=== PATIENT | male | born 1965 | race American Indian/Alaskan Native ===

== ENCOUNTER 2021-03-09 16:34 | Inpatient (IN) | payer MEDICAID ==
[2021-03-09] MEDS ORDERED: MECLIZINE 25 MG TAB PO ONE (17:34)
[2021-03-09] MEDS ORDERED: hydrALAZINE 20 MG/1 ML INJ IV ONE (17:34)
--- NOTE | 2021-03-09 17:42 | Emergency Department Report ---
HPI - General Chief Complaint: Weakness Time Seen by Provider: 03/09/21 17:17 - HPI HPI: 55-year-old -[place] male presents to the emergency department via EMS from his [facility] with complaint of elevated blood pressure, some dizziness/lightheadedness, and a 5-day history of feeling off balance with ambulation. The patient has a past medical history of hypertension, CHF, dementia. He denies any headache, vision change, slurred speech, numbness or paresthesias, focal or lateralizing weakness. Their note also says that the pat ieradha has been "lying in bed all day when he is normally up and socializing." ED Past Medical Hx - Past Medical History Previous Medical History?: Yes Hx Hypertension: Yes Hx Dementia: Yes - Medications Home Medications: Home Medications Medication Instructions Recorded Confirmed Last Taken Type AtorvaSTATin [Lipitor] 40 mg PO HS 03/10/21 03/10/21 Unknown History Cholecalciferol (Vitamin D3) 50,000 unit PO QWEEK 03/10/21 03/10/21 Unknown History [Vitamin D3 50,000UNIT CAP] Fluticasone Propionate [Flovent 50 mcg IH DAILY 03/10/21 03/10/21 Unknown History Diskus] Folic Acid [Folvite] 1 mg PO QDAY 03/10/21 03/10/21 Unknown History LORazepam [Ativan] 1 mg PO Q6H 03/10/21 03/10/21 Unknown History Spironolactone [Aldactone] 25 mg PO QDAY 03/10/21 03/10/21 Unknown History Thiamine HCl [Vitamin B-1] 100 mg PO DAILY 03/10/21 03/10/21 Unknown History Torsemide [Demadex] 20 mg PO DAILY 03/10/21 03/10/21 Unknown History amLODIPine [Norvasc] 10 mg PO DAILY 03/10/21 03/10/21 Unknown History carvediloL [Coreg] 12.5 mg PO BID 03/10/21 03/10/21 Unknown History hydroCHLOROthiazide [HCTZ] 25 mg PO QDAY 03/10/21 03/10/21 Unknown History lisinopriL [Zestril TAB] 40 mg PO QDAY 03/10/21 03/10/21 Unknown History ED Review of Systems ROS: Stated complaint: WEAKNESS Other details as noted in HPI Comment: All other systems reviewed and negative Constitutional: weakness. denies: chills, fever Eyes: denies: eye pain, vision change ENT: denies: ear pain, throat pain Respiratory: denies: cough, shortness of breath Cardiovascular: denies: chest pain, palpitations Gastrointestinal: denies: abdominal pain, vomiting Genitourinary: denies: dysuria, discharge Musculoskeletal: denies: back pain, arthralgia Skin: denies: rash, lesions Neurological: other (Dizziness/lightheadedness). denies: headache Physical Exam - Physical Exam Vital Signs: Vital Signs 03/09/21 17:13 Temperature 98.2 F Pulse Rate 109 H Respiratory 18 Rate Blood Pressure 183/86 [Right] O2 Sat by Pulse 97 Oximetry Physical Exam: GENERAL: The patient is well-developed well-nourished. HENT: Normocephalic. Atraumatic. Patient has moist mucous membranes. EYES: Extraocular motions are intact. Pupils equal reactive to light bilaterally. There is some fatigable horizontal nystagmus. NECK: Supple. Trachea is midline. CHEST/LUNGS: Clear to auscultation. There is no respiratory distress noted. HEART/CARDIOVASCULAR: Regular. There is no tachycardia. There is no murmur. ABDOMEN: Abdomen is soft, nontender. Patient has normal bowel sounds. There is no abdominal distention. SKIN: Skin is warm and dry. NEURO: The patient is awake, alert, and cooperative. No facial asymmetry. No pronator drift. Very mild dysmetria with gbahxp-zl-anoq touch. Normal speech. MUSCULOSKELETAL: There is no tenderness or deformity. There is no limitation range of motion. ED Course Vital Signs 03/09/21 17:13 Temperature 98.2 F Pulse Rate 109 H Respiratory 18 Rate Blood Pressure 183/86 [Right] O2 Sat by Pulse 97 Oximetry ED Medical Decision Making - Lab Data Result diagrams: 03/12/21 04:40 03/12/21 04:40 Lab Results 03/09/21 03/09/21 03/09/21 Range/Units 18:06 18:06 18:06 WBC 12.5 H (4.5-11.0) K/mm3 RBC 3.64 L (3.65-5.03) M/mm3 Hgb 11.3 L (11.8-15.2) gm/dl Hct 32.3 L (35.5-45.6) % MCV 89 (84-94) fl MCH 31 (28-32) pg MCHC 35 H (32-34) % RDW 15.0 (13.2-15.2) % Plt Count 230 (140-440) K/mm3 Lymph % (Auto) 28.2 (13.4-35.0) % [place] % (Auto) 9.4 H (0.0-7.3) % Eos % (Auto) 1.8 (0.0-4.3) % Baso % (Auto) 0.7 (0.0-1.8) % Lymph # (Auto) 3.5 (1.2-5.4) K/mm3 [place] # (Auto) 1.2 H (0.0-0.8) K/mm3 Eos # (Auto) 0.2 (0.0-0.4) K/mm3 Baso # (Auto) 0.1 (0.0-0.1) K/mm3 Seg Neutrophils % 59.9 (40.0-70.0) % Seg Neutrophils # 7.5 (1.8-7.7) K/mm3 Sodium 136 L (137-145) mmol/L Potassium 3.5 L (3.6-5.0) mmol/L Chloride 97.1 L (98-107) mmol/L Carbon Dioxide 28 (22-30) mmol/L Anion Gap 14 mmol/L BUN 21 H (9-20) mg/dL Creatinine 1.2 (0.8-1.3) mg/dL Estimated GFR > 60 ml/min BUN/Creatinine Ratio 18 % Glucose 149 H (75-100) mg/dL Calcium 8.6 (8.4-10.2) mg/dL Magnesium 2.00 (1.7-2.3) mg/dL Total Bilirubin 1.00 (0.1-1.2) mg/dL AST 15 (5-40) units/L ALT 9 (7-56) units/L Alkaline Phosphatase 104 (35-129) units/L Ammonia (25-60) umol/L Troponin T 0.056 H (0.00-0.029) ng/mL Total Protein 6.9 (6.3-8.2) g/dL Albumin 3.4 L (3.9-5) g/dL Albumin/Globulin Ratio 1.0 % Triglycerides 115 (2-149) mg/dL Cholesterol 138 (50-199) mg/dL LDL Cholesterol Direct 76 (50-130) mg/dL HDL Cholesterol 45 (40-59) mg/dL Cholesterol/HDL Ratio 3.06 % TSH 1.620 (0.270-4.200) mlU/mL Urine Color (Yellow) Urine Turbidity (Clear) Urine pH (5.0-7.0) Ur Specific [place] (1.003-1.030) Urine Protein (Negative) mg/dL Urine Glucose (UA) (Negative) mg/dL Urine Ketones (Negative) mg/dL Urine Blood (Negative) Urine Nitrite (Negative) Urine Bilirubin (Negative) Urine Urobilinogen (<2.0) mg/dL Ur Leukocyte Esterase (Negative) Urine WBC (Auto) (0.0-6.0) /HPF Urine RBC (Auto) (0.0-6.0) /HPF U Epithel Cells (Auto) (0-13.0) /HPF 03/09/21 03/09/21 Range/Units 18:06 Unknown WBC (4.5-11.0) K/mm3 RBC (3.65-5.03) M/mm3 Hgb (11.8-15.2) gm/dl Hct (35.5-45.6) % MCV (84-94) fl MCH (28-32) pg MCHC (32-34) % RDW (13.2-15.2) % Plt Count (140-440) K/mm3 Lymph % (Auto) (13.4-35.0) % [place] % (Auto) (0.0-7.3) % Eos % (Auto) (0.0-4.3) % Baso % (Auto) (0.0-1.8) % Lymph # (Auto) (1.2-5.4) K/mm3 [place] # (Auto) (0.0-0.8) K/mm3 Eos # (Auto) (0.0-0.4) K/mm3 Baso # (Auto) (0.0-0.1) K/mm3 Seg Neutrophils % (40.0-70.0) % Seg Neutrophils # (1.8-7.7) K/mm3 Sodium (137-145) mmol/L Potassium (3.6-5.0) mmol/L Chloride (98-107) mmol/L Carbon Dioxide (22-30) mmol/L Anion Gap mmol/L BUN (9-20) mg/dL Creatinine (0.8-1.3) mg/dL Estimated GFR ml/min BUN/Creatinine Ratio % Glucose (75-100) mg/dL Calcium (8.4-10.2) mg/dL Magnesium (1.7-2.3) mg/dL Total Bilirubin (0.1-1.2) mg/dL AST (5-40) units/L ALT (7-56) units/L Alkaline Phosphatase (35-129) units/L Ammonia 27.0 (25-60) umol/L Troponin T (0.00-0.029) ng/mL Total Protein (6.3-8.2) g/dL Albumin (3.9-5) g/dL Albumin/Globulin Ratio % Triglycerides (2-149) mg/dL Cholesterol (50-199) mg/dL LDL Cholesterol Direct (50-130) mg/dL HDL Cholesterol (40-59) mg/dL Cholesterol/HDL Ratio % TSH (0.270-4.200) mlU/mL Urine Color Yellow (Yellow) Urine Turbidity Clear (Clear) Urine pH 5.0 (5.0-7.0) Ur Specific [place] 1.008 (1.003-1.030) Urine Protein >500 (Negative) mg/dL Urine Glucose (UA) 50 (Negative) mg/dL Urine Ketones Neg (Negative) mg/dL Urine Blood Sm (Negative) Urine Nitrite Neg (Negative) Urine Bilirubin Neg (Negative) Urine Urobilinogen < 2.0 (<2.0) mg/dL Ur Leukocyte Esterase Neg (Negative) Urine WBC (Auto) 1.0 (0.0-6.0) /HPF Urine RBC (Auto) 2.0 (0.0-6.0) /HPF U Epithel Cells (Auto) < 1.0 (0-13.0) /HPF - Radiology Data Radiology results: report reviewed CT head/brain wo con INDICATION / CLINICAL INFORMATION: 55 years Male; Dizziness. TECHNIQUE: Routine CT head without contrast. All CT scans at this location are performed using CT dose reduction for ALARA by means of automated exposure control. Motion artifact COMPARISON: None. FINDINGS: BRAIN / INTRACRANI AL CONTENTS: Lacunar infarcts seen in the lateral thalamic region on the right, most likely chronic in age. Otherwise, no acute hemorrhage, mass effect, midline shift, hydrocephalus, or acute, large territorial infarct. Mild to moderate, diffuse cerebral atrophy. There are arbj-xg-ygglbyfo areas of decreased attenuation in the white matter of the cerebral hemispheres. These are nonspecific findings and may be related to microangiopathy (hypertension, diabetes, atherosclerosis), given the patient's age. It might be difficult to evaluate for small areas of ischemia without diffusion imaging by MRI. CRANIOCERVICAL JUNCTION: No significant abnormality. ORBITS: No significant abnormality of visualized orbits. SINUSES / MASTOIDS: Mild mucosal thickening seen in the mastoids. ADDITIONAL FINDINGS: Atherosclerotic disease is seen in the anterior and posterior circulation. IMPRESSION: 1. No focal mass, hemorrhage, hydrocephalus, or acute, large territorial infarct. Follow-up with diffusion imaging by MRI, as clinically warranted. 2. Study is limited by motion. CTA neck without and with intravenous contrast material CLINICAL HISTORY: Dizziness, Dysequilibrium TECHNIQUE: Following acquisition of a timing bolus 0.625 mm thick contiguous axial scans were obtained from aortic arch to the skull base during rapid bolus intravenous contrast infusion. In addition to evaluation of axial source images multiplanar reconstructions were produced and reviewed for this report. 3 plane MIP reconstructions were produced and reviewed. Contrast dose report: Omnipaque 350: 100 ml, administered intravenously All CT examinations performed at this facility utilize modulated dose reduction, iterative reconstruction or weight-based dosing, as appropriate, to obtain a radiation dose which is as low as can reasonably be achieved. FINDINGS: Thoracic aorta:No abnormalities are identified along the course of the thoracic aorta..The origins of the great vessels have an unremarkable appearance. Brachiocephalic artery, left common carotid artery origin and left subclavian artery all have an unremarkable appearance. Right carotid artery:No abnormalities are seen along the course of the RCCA, at the right carotid bifurcation or along the cervical portions of the EVGENY. Left carotid artery: No abnormalities are noted along the course of the left common carotid artery, at the left carotid bifurcation or along the course of the cervical segments of the LICA. Posterior circulation:The vertebral arteries have an unremarkable appearance. Both vertebral arteries contribute to the basilar artery origin. The basilar artery has an unremarkable appearance. The degree of stenosis, if any, is determined utilizing NASCET like criteria. In this case there is no indication of hemodynamically significant stenosis at the carotid bifurcations or elsewhere. Evaluation of the nonvascular soft tissue structures reveal no abnormality. There is no indication of cervical lymphadenopathy. No abnormalities are seen along the course of the airway. Visualized portions of the parotid glands and the submandibular salivary glands have a normal appearance. Thyroid gland has a normal appearance. Evaluation of the lung apices reveals no evidence of lung nodule or infiltrate. Evaluation of the cervical spine revealed no significant abnormalities. IMPRESSION: 1. No indication of hemodynamically significant stenosis at the carotid bifurcations or elsewhere. CTA head with intravenous contrast CLINICAL HISTORY: Dizziness, Dysequilibrium TECHNIQUE: 0.625 mm thick contiguous axial scans were obtained from the skull base to the skull vertex during rapid bolus administration of intravenous contrast material. Multiplanar reconstructions were produced in the coronal and sagittal planes. In addition 3 plane MIP instructions were produced and reviewed for this report. The axial source images and reconstructed images were reviewed for this report. CONTRAST DOSE REPORT: Omnipaque 350: 100 ml administered intravenously. All CT scans at this location are performed using CT dose reduction for ALARA by means of automated exposure control. FINDINGS: Internal carotid arteries: Calcified atherosclerotic plaque is seen along the course of the cavernous segment of the R ICA. Calcified plaque extends up into the communicating segment of this vessel. This appears to be associated with a less than 50% stenosis. Similar findings are seen to a lesser degree on the left. Middle cerebral arteries: A mild short segment stenosis is seen at the origin of the M1 segment of the left middle cerebral artery suggesting the presence of intercranial atherosclerotic changes in this location. Middle cerebral arteries and their branches have an otherwise unremarkable appearance. Anterior cerebral arteries: The A1 segment of the right anterior cerebral artery is hypoplastic or absent. Both A2 segments are supplied by the left anterior cerebral artery A1 segment. Segment Vertebral arteries: Mild dominance of the left vertebral artery is noted. Basilar artery:Basilar artery has an unremarkable appearance. Posterior cerebral arteries: There is irregular contour and decreased caliber of the P1 and P2 segments of the posterior cerebral artery on the right compared to those on the left. This is associated with a 70% stenosis Possibility of intercranial atherosclerotic disease is suspected. Dural sinuses: Dural venous sinuses are well demonstrated on this exam. There is no evidence of dural sinus thrombosis. IMPRESSION: 1. Findings suggest presence of intercranial atherosclerotic disease along the course of the intracranial are ICA, at the origin of the M1 segment left middle cerebral artery and at the P1 segment of the right posterior cerebral artery as described above. - Medical Decision Making This patient presents from [place] with a 5-day history of some disequilibrium, dizziness/lightheadedness, decreased appetite, generalized weakness. On examination the patient does not have any facial asymmetry, pronator drift, gaze preference, but does have some fatigable horizontal nystagmus and some very mild dysmetria with clykno-cl-qcgo touch CT of the head without contrast does not show any hemorrhage, large vessel occlusion, or any other acute process. Labs have been unremarkable thus far including CBC, metabolic panel, thyroid function, ammonia, urinalysis, but the patient does have a slightly elevated troponin level of about 0.055. The patient has just gone back for CT angiography of the head and neck, and may need an inpatient MRI, to evaluate for a posterior circulation stroke. Given the timing of the symptoms, the patient is not a TPA candidate, nor a candidate for thrombectomy. He has been given a full dose aspirin after the negative CT scan of the head, and with the elevated troponin level. We will trend the troponins. Patient will be admitted to the hospital for further evaluation and treatment and will be presented to the hospitalist service. Critical care attestation.: If time is entered above; I have spent that time in minutes in the direct care of this critically ill patient, excluding procedure time. ED Disposition Clinical Impression: Hypertensive urgency, Elevated troponin, Dysequilibrium Disposition: ADMITTED INPATIENT Is pt being admited?: Yes Condition: Serious Time of Disposition: 19:56 - Assessment Assessment Interval: Baseline - Level of Consciousness 1a. Level of Consciousness: alert/keenly responsive - LOC Questions 1b. LOC Questions: answers both correctly - LOC Command 1c. LOC Commands: performs tasks correctly - Best Gaze 2. Best Gaze: normal - Visual 3. Visual: no visual loss - Facial Palsy 4. Facial Palsy: normal symmetrical movement - Motor Arm 5a. Motor Arm Left: no drift 5b. Motor Arm Right: no drift - Motor Leg 6a. Motor Leg Left: no drift 6b. Motor Leg Right: no drift - Limb Ataxia 7. Limb Ataxia: absent - Sensory 8. Sensory: normal - Best Language 9. Best Language: no aphasia - Dysarthria 10. Dysarthria: normal
[2021-03-09 18:19] LABS: Basophils # (Auto) 0.1 K/mm3 (0.0-0.1); Basophils % (Auto) 0.7 % (0.0-1.8); Eosinophils # (Auto) 0.2 K/mm3 (0.0-0.4); Eosinophils % (Auto) 1.8 % (0.0-4.3); Hematocrit 32.3 % (35.5-45.6); Hemoglobin 11.3 gm/dl (11.8-15.2); Lymphocytes # (Auto) 3.5 K/mm3 (1.2-5.4); Lymphocytes % (Auto) 28.2 % (13.4-35.0); Mean Corpuscular HGB Conc 35 % (32-34); Mean Corpuscular Volume 89 fl (84-94); Monocytes # (Auto) 1.2 K/mm3 (0.0-0.8); Monocytes % (Auto) 9.4 % (0.0-7.3); Platelet Count 230 K/mm3 (140-440); Red Blood Count 3.64 M/mm3 (3.65-5.03)
[2021-03-09 18:27] LABS: Bilirubin,Urine NEG (Negative); Blood,Urine SM (Negative); Color,Urine Yellow (Yellow); Protein,Urine >500 mg/dL (Negative); Urobilinogen,Urine < 2.0 mg/dL (<2.0)
[2021-03-09 18:37] LABS: BUN/Creatinine Ratio 18; Blood Urea Nitrogen 21 mg/dL (9-20); Calcium 8.6 mg/dL (8.4-10.2); Hemolysis Index 11
--- NOTE | 2021-03-09 19:01 | Cat Scan Report ---
CT head/brain wo con INDICATION / CLINICAL INFORMATION: 55 years Male; Dizziness. TECHNIQUE: Routine CT head without contrast. All CT scans at this location are performed using CT dos e reduction for ALARA by means of automated exposure control. Motion artifact COMPARISON: None. FINDINGS: BRAIN / INTRACRANIAL CONTENTS: Lacunar infarcts seen in the lateral thalamic region on the right, mos t likely chronic in age. Otherwise, no acute hemorrhage, mass effect, midline shift, hydrocephalus, or acute, large territori al infarct. Mild to moderate, diffuse cerebral atrophy. There are nncd-of-pmxupjmn areas of decreased attenuation in the white matter of the cerebral hemisph eres. These are nonspecific findings and may be related to microangiopathy (hypertension, diabetes, a therosclerosis), given the patient's age. It might be difficult to evaluate for small areas of ischem ia without diffusion imaging by MRI. CRANIOCERVICAL JUNCTION: No significant abnormality. ORBITS: No significant abnormality of visualized orbits. SINUSES / MASTOIDS: Mild mucosal thickening seen in the mastoids. ADDITIONAL FINDINGS: Atherosclerotic disease is seen in the anterior and posterior circulation. IMPRESSION: 1. No focal mass, hemorrhage, hydrocephalus, or acute, large territorial infarct. Follow-up with diff usion imaging by MRI, as clinically warranted. 2. Study is limited by motion. Signer Name: Henri Garcia MD, III Signed: 03/09/2021 6:57 PM Workstation Name: [id number]
[2021-03-09 19:02] LABS: Alanine Aminotransferase 9 units/L (7-56); Albumin 3.4 g/dL (3.9-5)
[2021-03-09] MEDS ORDERED: ASPIRIN 81 MG TAB CHEW PO ONE (19:11)
[2021-03-09 19:25] LABS: Chol/HDL Ratio 3.06 %; HDL Cholesterol 45 mg/dL (40-59); LDL Cholesterol,Direct 76 mg/dL (50-130)
--- NOTE | 2021-03-09 21:34 | Cat Scan Report ---
CTA neck without and with intravenous contrast material CLINICAL HISTORY: Dizziness, Dysequilibrium TECHNIQUE: Following acquisition of a timing bolus 0.625 mm thick contiguous axial scans were obtained from aort ic arch to the skull base during rapid bolus intravenous contrast infusion. In addition to evaluation of axial source images multiplanar reconstructions were produced and reviewed for this report. 3 radha ne MIP reconstructions were produced and reviewed. Contrast dose report: Omnipaque 350: 100 ml, administered intravenously All CT examinations performed at this facility utilize modulated dose reduction, iterative reconstruc tion or weight-based dosing, as appropriate, to obtain a radiation dose which is as low as can reason ably be achieved. FINDINGS: Thoracic aorta:No abnormalities are identified along the course of the thoracic aorta..The origins of the great vessels have an unremarkable appearance. Brachiocephalic artery, left common carotid arter y origin and left subclavian artery all have an unremarkable appearance. Right carotid artery:No abnormalities are seen along the course of the RCCA, at the right carotid bif urcation or along the cervical portions of the EVGENY. Left carotid artery: No abnormalities are noted along the course of the left common carotid artery, a t the left carotid bifurcation or along the course of the cervical segments of the LICA. Posterior circulation:The vertebral arteries have an unremarkable appearance. Both vertebral arteries contribute to the basilar artery origin. The basilar artery has an unremarkable appearance. The degree of stenosis, if any, is determined utilizing NASCET like criteria. In this case there is no indication of hemodynamically significant stenosis at the carotid bifurcations or elsewhere. Evaluation of the nonvascular soft tissue structures reveal no abnormality. There is no indication of cervical lymphadenopathy. No abnormalities are seen along the course of the airway. Visualized porti ons of the parotid glands and the submandibular salivary glands have a normal appearance. Thyroid gla nd has a normal appearance. Evaluation of the lung apices reveals no evidence of lung nodule or infil trate. Evaluation of the cervical spine revealed no significant abnormalities. IMPRESSION: 1. No indication of hemodynamically significant stenosis at the carotid bifurcations or elsewhere. Signer Name: Diego Simmons MD Signed: 03/09/2021 9:29 PM Workstation Name: [id number]
[2021-03-09] MEDS ORDERED: ASPIRIN 81 MG TAB CHEW ONE (21:39)
--- NOTE | 2021-03-09 21:47 | Cat Scan Report ---
CTA head with intravenous contrast CLINICAL HISTORY: Dizziness, Dysequilibrium TECHNIQUE: 0.625 mm thick contiguous axial scans were obtained from the skull base to the skull vertex during r apid bolus administration of intravenous contrast material. Multiplanar reconstructions were produced in the coronal and sagittal planes. In addition 3 plane MIP instructions were produced and reviewed for this report. The axial source images and reconstructed images were reviewed for this report. CONTRAST DOSE REPORT: Omnipaque 350: 100 ml administered intravenously. All CT scans at this location are performed using CT dose reduction for ALARA by means of automated e xposure control. FINDINGS: Internal carotid arteries: Calcified atherosclerotic plaque is seen along the course of the cavernous segment of the R ICA. Calcified plaque extends up into the communicating segment of this vessel. Thi s appears to be associated with a less than 50% stenosis. Similar findings are seen to a lesser degre e on the left. Middle cerebral arteries: A mild short segment stenosis is seen at the origin of the M1 segment of th e left middle cerebral artery suggesting the presence of intercranial atherosclerotic changes in this location. Middle cerebral arteries and their branches have an otherwise unremarkable appearance. Anterior cerebral arteries: The A1 segment of the right anterior cerebral artery is hypoplastic or ab sent. Both A2 segments are supplied by the left anterior cerebral artery A1 segment. Segment Vertebral arteries: Mild dominance of the left vertebral artery is noted. Basilar artery:Basilar artery has an unremarkable appearance. Posterior cerebral arteries: There is irregular contour and decreased caliber of the P1 and P2 segmen ts of the posterior cerebral artery on the right compared to those on the left. This is associated wi th a 70% stenosis Possibility of intercranial atherosclerotic disease is suspected. Dural sinuses: Dural venous sinuses are well demonstrated on this exam. There is no evidence of dural sinus thrombosis. IMPRESSION: 1. Findings suggest presence of intercranial atherosclerotic disease along the course of the intracra nial are ICA, at the origin of the M1 segment left middle cerebral artery and at the P1 segment of th e right posterior cerebral artery as described above. Signer Name: Diego Simmons MD Signed: 03/09/2021 9:42 PM Workstation Name: [id number]
[2021-03-09] MEDS ORDERED: MORPHINE 4 MG/1 ML INJ IV PRN (23:53)
[2021-03-09] MEDS ORDERED: METOCLOPRAMIDE 10 MG TAB PO PRN (23:53)
[2021-03-09] MEDS ORDERED: ONDANSETRON 4 MG/2 ML INJ IV PRN (23:53)
[2021-03-09] MEDS ORDERED: PROMETHAZINE 25 MG RECT SUPP PR PRN (23:53)
[2021-03-09] MEDS ORDERED: ACETAMINOPHEN 325 MG TAB PO PRN (23:53)
[2021-03-09] MEDS ORDERED: MORPHINE 2 MG/1 ML INJ IV PRN (23:53)
[2021-03-09] MEDS ORDERED: MAGNESIUM HYDROXIDE (MOM) ORAL LIQD UDC PO PRN ×2 (23:53)
--- NOTE | 2021-03-10 00:06 | History and Physical Report ---
History of Present Illness Date of examination: 03/09/21 Date of admission: 03/09/21 23:04 Chief complaint: Dizziness History of present illness: 55-year-old male with known history of hypertension , CHF and dementia presents to the emergency room today for by EMS from [facility] with a complaint of elevated blood pressure, dizziness and lightheadedness for about 5 days. Patient denies any headaches, no diaphoresis, no fever or chills, no chest pain or shortness of breath, no nausea vomiting and no abdominal pain. He denies any weakness, numbness or paresthesias. He states he just feels off balance. Work-up in the emergency room today, significant findings were that of elevated troponin of 0.056, mild leukocytosis of 12.5 and mild hypokalemia of 3.5. CT scan of the head did not show any acute findings. CT angiogram of the head and neck were unremarkable. Patient is being admitted for CVA evaluation. Past History Past Medical History: hypertension, other (Dementia) Past Surgical History: denies: No surgical history Social history: denies: no significant social history Family history: denies: no significant family history Medications and Allergies Allergies Allergy/AdvReac Type Severity Reaction Status Date / Time No Known Allergies Allergy Verified 03/09/21 21:41 Active Meds: Active Medications Acetaminophen (Acetaminophen 325 Mg Tab) 650 mg PO Q4H PRN PRN Reason: Pain MILD(1-3)/Fever >100.5/DOUGLAS Aspirin (Aspirin 325 Mg Tab) 325 mg PO QDAY ARMANDO Atorvastatin Calcium (Atorvastatin 40 Mg Tab) 40 mg PO QHS ARMANDO Bisacodyl (Bisacodyl 10 Mg Rect Supp) 10 mg GA QDAY PRN PRN Reason: Constipation Hydralazine HCl (Hydralazine 20 Mg/1 Ml Inj) 10 mg IV Q4HR PRN PRN Reason: Blood Pressure Magnesium Hydroxide (Magnesium Hydroxide (Mom) Oral Liqd Udc) 30 ml PO Q4H PRN PRN Reason: Constipation Magnesium Hydroxide (Magnesium Hydroxide (Mom) Oral Liqd Udc) 30 ml PO Q4H PRN PRN Reason: Constipation Metoclopramide HCl (Metoclopramide 10 Mg Tab) 10 mg PO Q6H PRN PRN Reason: Nausea And Vomiting Morphine Sulfate (Morphine 2 Mg/1 Ml Inj) 2 mg IV Q4H PRN PRN Reason: Pain, Moderate (4-6) Morphine Sulfate (Morphine 4 Mg/1 Ml Inj) 4 mg IV Q4H PRN PRN Reason: Pain , Severe (7-10) Ondansetron HCl (Ondansetron 4 Mg/2 Ml Inj) 4 mg IV Q8H PRN PRN Reason: Nausea And Vomiting Ondansetron HCl (Ondansetron 4 Mg/2 Ml Inj) 4 mg IV Q8H PRN PRN Reason: Nausea And Vomiting Promethazine HCl (Promethazine 25 Mg Rect Supp) 25 mg GA Q6H PRN PRN Reason: Nausea And Vomiting Sodium Chloride (Sodium Chloride 0.9% 10 Ml Flush Syringe) 10 ml IV BID ARMANDO Sodium Chloride (Sodium Chloride 0.9% 10 Ml Flush Syringe) 10 ml IV PRN PRN PRN Reason: LINE FLUSH Sodium Chloride (Sodium Chloride 0.9% 10 Ml Flush Syringe) 10 ml INJ PRN PRN PRN Reason: LINE FLUSH Review of Systems Constitutional: no fever, no chills Ears, nose, mouth and throat: no nasal congestion, no sore throat Cardiovascular: no chest pain, no palpitations Respiratory: no cough, no shortness of breath Gastrointestinal: no abdominal pain, no nausea, no vomiting, no diarrhea Genitourinary Male: no dysuria, no hematuria, no flank pain Musculoskeletal: no neck pain, no low back pain Integumentary: no rash, no pruritis Neurological: balance difficulties, other (Dizziness), no headaches Psychiatric: no anxiety, no depression Endocrine: no polyphagia, no polydipsia, no polyuria, no nocturia Exam - Constitutional Vitals: Temp Pulse Resp BP Pulse Ox 98.4 F 76 13 157/79 97 03/09/21 19:10 03/09/21 19:10 03/09/21 23:30 03/09/21 23:30 03/09/21 23:30 General appearance: Present: no acute distress, well-nourished - EENT Eyes: Present: PERRL, EOM intact. Absent: scleral icterus ENT: hearing intact, clear oral mucosa, dentition normal - Neck Neck: Present: supple, normal ROM - Respiratory Respiratory effort: normal Respiratory: bilateral: CTA - Cardiovascular Rhythm: regular Heart Sounds: Present: S1 & S2. Absent: gallop, systolic murmur, diastolic murmur, rub, click - Extremities Extremities: no ischemia, pulses intact, pulses symmetrical, No edema, normal temperature, normal color, Full ROM Peripheral Pulses: within normal limits - Abdominal General gastrointestinal: Present: soft, non-tender, non-distended, normal bowel sounds. Absent: mass - Integumentary Integumentary: Present: clear, warm, dry. Absent: rash - Musculoskeletal Musculoskeletal: strength equal bilaterally - Psychiatric Psychiatric: appropriate mood/affect, intact judgment & insight, memory intact, cooperative - Neurologic Neurologic: CNII-XII intact, no focal deficits, moves all extremities HEART Score - HEART Score Troponin: Troponin T 0.056 ng/mL (0.00-0.029) H 03/09/21 18:06 Results - Labs CBC & Chem 7: 03/09/21 18:06 03/09/21 18:06 Labs: Abnormal lab results 03/09/21 03/09/21 Range/Units 18:06 18:06 WBC 12.5 H (4.5-11.0) K/mm3 RBC 3.64 L (3.65-5.03) M/mm3 Hgb 11.3 L (11.8-15.2) gm/dl Hct 32.3 L (35.5-45.6) % MCHC 35 H (32-34) % [place] % (Auto) 9.4 H (0.0-7.3) % [place] # (Auto) 1.2 H (0.0-0.8) K/mm3 Sodium 136 L (137-145) mmol/L Potassium 3.5 L (3.6-5.0) mmol/L Chloride 97.1 L (98-107) mmol/L BUN 21 H (9-20) mg/dL Glucose 149 H (75-100) mg/dL Troponin T 0.056 H (0.00-0.029) ng/mL Albumin 3.4 L (3.9-5) g/dL Assessment and Plan - Patient Problems (1) Dysequilibrium Current Visit: Yes Status: Acute Plan to address problem: Etiology unclear. Patient to be admitted and evaluated for CVA. We will schedule for MRI of the brain and carotid Doppler. Consult will be placed to neurology for evaluation and recommendations. (2) Hypertensive urgency Current Visit: Yes Status: Acute Plan to address problem: We will resume routine home medications and monitor vital signs closely. Meanwhile we will place on IV hydralazine as needed for optimal blood pressure control. (3) Elevated troponin Current Visit: Yes Status: Acute Plan to address problem: We will check serial cardiac enzymes. Patient has denied any chest pain. There has been no EKG changes. (4) DVT prophylaxis Current Visit: Yes Status: Acute Plan to address problem: Patient placed on subcutaneous heparin. (5) Full code status Current Visit: Yes Status: Acute Plan to address problem: Patient is full code.
[2021-03-10] MEDS: ONDANSETRON 4 MG/2 ML INJ IV PRN ×2 (00:37→12:24)
[2021-03-10] MEDS: HEPARIN 5,000 UNIT/1 ML VIAL SUB-Q SCH ×3 (06:18→21:06)
[2021-03-10] MEDS ORDERED: POTASSIUM CHLORIDE ER 20 MEQ TAB PO SCH (08:00)
--- NOTE | 2021-03-10 10:20 | Progress Note ---
Assessment and Plan Assessment and plan: Disequilibrium/autonomic imbalance. Accelerated hypertension Elevated troponin DVT prophylax 03/10/2021. Follow-up MRI and echocardiogram. CT of head negative. Neurology consultation pending. PT/OT. Cardiology consultation for elevated troponin. Continue antihypertensive medications. History Interval history: No new issues overnight Hospitalist Physical - Constitutional Vitals: Temp Pulse Resp BP Pulse Ox 98.3 F 72 20 173/73 99 03/10/21 08:27 03/10/21 08:27 03/10/21 08:27 03/10/21 08:27 03/10/21 08:27 General appearance: Present: no acute distress, well-nourished - EENT Eyes: Present: PERRL, EOM intact ENT: hearing intact, clear oral mucosa, dentition normal - Neck Neck: Present: supple, normal ROM - Respiratory Respiratory effort: normal Respiratory: bilateral: CTA - Cardiovascular Rhythm: regular Heart Sounds: Present: S1 & S2. Absent: gallop, rub - Extremities Extremities: no ischemia, No edema, Full ROM - Abdominal General gastrointestinal: soft, non-tender, non-distended, normal bowel sounds - Integumentary Integumentary: Present: clear, warm, dry - Neurologic Neurologic: CNII-XII intact, moves all extremities HEART Score - HEART Score Troponin: Troponin T 0.058 ng/mL (0.00-0.029) H 03/10/21 00:24 Results - Labs CBC & Chem 7: 03/09/21 18:06 03/09/21 18:06 Labs: Laboratory Last Values WBC 12.5 K/mm3 (4.5-11.0) H 03/09/21 18:06 RBC 3.64 M/mm3 (3.65-5.03) L 03/09/21 18:06 Hgb 11.3 gm/dl (11.8-15.2) L 03/09/21 18:06 Hct 32.3 % (35.5-45.6) L 03/09/21 18:06 MCV 89 fl (84-94) 03/09/21 18:06 MCH 31 pg (28-32) 03/09/21 18:06 MCHC 35 % (32-34) H 03/09/21 18:06 RDW 15.0 % (13.2-15.2) 03/09/21 18:06 Plt Count 230 K/mm3 (140-440) 03/09/21 18:06 Lymph % (Auto) 28.2 % (13.4-35.0) 03/09/21 18:06 [place] % (Auto) 9.4 % (0.0-7.3) H 03/09/21 18:06 Eos % (Auto) 1.8 % (0.0-4.3) 03/09/21 18:06 Baso % (Auto) 0.7 % (0.0-1.8) 03/09/21 18:06 Lymph # (Auto) 3.5 K/mm3 (1.2-5.4) 03/09/21 18:06 [place] # (Auto) 1.2 K/mm3 (0.0-0.8) H 03/09/21 18:06 Eos # (Auto) 0.2 K/mm3 (0.0-0.4) 03/09/21 18:06 Baso # (Auto) 0.1 K/mm3 (0.0-0.1) 03/09/21 18:06 Seg Neutrophils % 59.9 % (40.0-70.0) 03/09/21 18:06 Seg Neutrophils # 7.5 K/mm3 (1.8-7.7) 03/09/21 18:06 Sodium 136 mmol/L (137-145) L 03/09/21 18:06 Potassium 3.5 mmol/L (3.6-5.0) L 03/09/21 18:06 Chloride 97.1 mmol/L (98-107) L 03/09/21 18:06 Carbon Dioxide 28 mmol/L (22-30) 03/09/21 18:06 Anion Gap 14 mmol/L 03/09/21 18:06 BUN 21 mg/dL (9-20) H 03/09/21 18:06 Creatinine 1.2 mg/dL (0.8-1.3) 03/09/21 18:06 Estimated GFR > 60 ml/min 03/09/21 18:06 BUN/Creatinine Ratio 18 % 03/09/21 18:06 Glucose 149 mg/dL (75-100) H 03/09/21 18:06 Calcium 8.6 mg/dL (8.4-10.2) 03/09/21 18:06 Magnesium 2.00 mg/dL (1.7-2.3) 03/09/21 18:06 Total Bilirubin 1.00 mg/dL (0.1-1.2) 03/09/21 18:06 AST 15 units/L (5-40) 03/09/21 18:06 ALT 9 units/L (7-56) 03/09/21 18:06 Alkaline Phosphatase 104 units/L (35-129) 03/09/21 18:06 Ammonia 27.0 umol/L (25-60) 03/09/21 18:06 Troponin T 0.058 ng/mL (0.00-0.029) H 03/10/21 00:24 Total Protein 6.9 g/dL (6.3-8.2) 03/09/21 18:06 Albumin 3.4 g/dL (3.9-5) L 03/09/21 18:06 Albumin/Globulin Ratio 1.0 % 03/09/21 18:06 Triglycerides 115 mg/dL (2-149) 03/09/21 18:06 Cholesterol 138 mg/dL (50-199) 03/09/21 18:06 LDL Cholesterol Direct 76 mg/dL (50-130) 03/09/21 18:06 HDL Cholesterol 45 mg/dL (40-59) 03/09/21 18:06 Cholesterol/HDL Ratio 3.06 % 03/09/21 18:06 TSH 1.620 mlU/mL (0.270-4.200) 03/09/21 18:06 Urine Color Yellow (Yellow) 03/09/21 Unknown Urine Turbidity Clear (Clear) 03/09/21 Unknown Urine pH 5.0 (5.0-7.0) 03/09/21 Unknown Ur Specific [place] 1.008 (1.003-1.030) 03/09/21 Unknown Urine Protein >500 mg/dL (Negative) 03/09/21 Unknown Urine Glucose (UA) 50 mg/dL (Negative) 03/09/21 Unknown Urine Ketones Neg mg/dL (Negative) 03/09/21 Unknown Urine Blood Sm (Negative) 03/09/21 Unknown Urine Nitrite Neg (Negative) 03/09/21 Unknown Urine Bilirubin Neg (Negative) 03/09/21 Unknown Urine Urobilinogen < 2.0 mg/dL (<2.0) 03/09/21 Unknown Ur Leukocyte Esterase Neg (Negative) 03/09/21 Unknown Urine WBC (Auto) 1.0 /HPF (0.0-6.0) 03/09/21 Unknown Urine RBC (Auto) 2.0 /HPF (0.0-6.0) 03/09/21 Unknown U Epithel Cells (Auto) < 1.0 /HPF (0-13.0) 03/09/21 Unknown Active Medications - Current Medications Current Medications: Generic Name Dose Route Start Last Admin Trade Name Freq PRN Reason Stop Dose Admin Acetaminophen 650 mg 03/09/21 23:53 Acetaminophen 325 Mg Tab PO Q4H PRN Pain MILD(1-3)/Fever >100.5/DOUGLAS Aspirin 325 mg 03/10/21 10:00 Aspirin 325 Mg Tab PO QDAY [facility] Atorvastatin Calcium 40 mg 03/10/21 22:00 Atorvastatin 40 Mg Tab PO QHS ARMANDO Bisacodyl 10 mg 03/09/21 23:53 Bisacodyl 10 Mg Rect Supp [place] QDAY PRN Constipation Heparin Sodium (Porcine) 5,000 unit 03/10/21 06:00 03/10/21 06:18 Heparin 5,000 Unit/1 Ml Vial SUB-Q 5,000 unit Q8HR [facility] Administration Hydralazine HCl 10 mg 03/09/21 23:58 Hydralazine 20 Mg/1 Ml Inj IV Q4HR PRN Blood Pressure Magnesium Hydroxide 30 ml 03/09/21 23:53 Magnesium Hydroxide (Mom) Oral Liqd Udc PO Q4H PRN Constipation Metoclopramide HCl 10 mg 03/09/21 23:53 Metoclopramide 10 Mg Tab PO Q6H PRN Nausea And Vomiting Morphine Sulfate 2 mg 03/09/21 23:53 Morphine 2 Mg/1 Ml Inj IV Q4H PRN Pain, Moderate (4-6) Morphine Sulfate 4 mg 03/09/21 23:53 Morphine 4 Mg/1 Ml Inj IV Q4H PRN Pain , Severe (7-10) Ondansetron HCl 4 mg 03/09/21 23:53 03/10/21 00:37 Ondansetron 4 Mg/2 Ml Inj IV 4 mg Q8H PRN Administration Nausea And Vomiting Potassium Chloride 20 meq 03/10/21 08:00 Potassium Chloride Er 20 Meq Tab PO 03/10/21 12:00 ONCE@0800 ARMANDO Promethazine HCl 25 mg 03/09/21 23:53 Promethazine 25 Mg Rect Supp [place] Q6H PRN Nausea And Vomiting Sodium Chloride 10 ml 03/10/21 10:00 Sodium Chloride 0.9% 10 Ml Flush Syringe IV BID ARMANDO Sodium Chloride 10 ml 03/09/21 23:53 Sodium Chloride 0.9% 10 Ml Flush Syringe IV PRN PRN LINE FLUSH
--- NOTE | 2021-03-10 10:51 | Consultation ---
History of Present Illness Consult date: 03/10/21 Requesting physician: WENDY GOODWIN Consult reason: elevated troponin History of present illness: Pt is a 55-year-old AA male with a hx of chronic HFpEF, HTN, HLD, paranoid personality disorder, and dementia, who presented from longterm for evaluation and management of elevated BP. Pt complains of being "off balance" and reports several falls over the past week. He states "it feels like the room is spinning." Pt denies lightheadedness, syncope, or LOC. Pt also reports decreased PO intake, stating he has not been receiving food that he likes. Cardiology has been consulted for evaluation of elevated troponin. Trop noted to be mildly elevated at admission - 0.056 -> 0.058. No ECG available for review. Tele reviewed - SR 60s, no events. Pt denies chest pain. No prior cardiac workup available for review. Pt is typically followed by [facility] per chart review. Past History Past Medical History: heart failure, hypertension, other (dementia, paranoid personality disorder) Past Surgical History: denies: CABG, PTCA Social history: denies: smoking, alcohol abuse Family history: no significant family history Medications and Allergies Allergies Allergy/AdvReac Type Severity Reaction Status Date / Time No Known Allergies Allergy Verified 03/09/21 21:41 Active Meds: Active Medications Acetaminophen (Acetaminophen 325 Mg Tab) 650 mg PO Q4H PRN PRN Reason: Pain MILD(1-3)/Fever >100.5/DOUGLAS Aspirin (Aspirin 325 Mg Tab) 325 mg PO QDAY ARMANDO Atorvastatin Calcium (Atorvastatin 40 Mg Tab) 40 mg PO QHS ARMANDO Bisacodyl (Bisacodyl 10 Mg Rect Supp) 10 mg [place] QDAY PRN PRN Reason: Constipation Heparin Sodium (Porcine) (Heparin 5,000 Unit/1 Ml Vial) 5,000 unit SUB-Q Q8HR [facility] Last Admin: 03/10/21 06:18 Dose: 5,000 unit Documented by: Hydralazine HCl (Hydralazine 20 Mg/1 Ml Inj) 10 mg IV Q4HR PRN PRN Reason: Blood Pressure Magnesium Hydroxide (Magnesium Hydroxide (Mom) Oral Liqd Udc) 30 ml PO Q4H PRN PRN Reason: Constipation Metoclopramide HCl (Metoclopramide 10 Mg Tab) 10 mg PO Q6H PRN PRN Reason: Nausea And Vomiting Morphine Sulfate (Morphine 2 Mg/1 Ml Inj) 2 mg IV Q4H PRN PRN Reason: Pain, Moderate (4-6) Morphine Sulfate (Morphine 4 Mg/1 Ml Inj) 4 mg IV Q4H PRN PRN Reason: Pain , Severe (7-10) Ondansetron HCl (Ondansetron 4 Mg/2 Ml Inj) 4 mg IV Q8H PRN PRN Reason: Nausea And Vomiting Last Admin: 03/10/21 00:37 Dose: 4 mg Documented by: Potassium Chloride (Potassium Chloride Er 20 Meq Tab) 20 meq PO ONCE@0800 ARMANDO Stop: 03/10/21 12:00 Promethazine HCl (Promethazine 25 Mg Rect Supp) 25 mg [place] Q6H PRN PRN Reason: Nausea And Vomiting Sodium Chloride (Sodium Chloride 0.9% 10 Ml Flush Syringe) 10 ml IV BID ARMANDO Sodium Chloride (Sodium Chloride 0.9% 10 Ml Flush Syringe) 10 ml IV PRN PRN PRN Reason: LINE FLUSH Review of Systems Constitutional: no fever, no chills, no fatigue Ears, nose, mouth and throat: no nasal congestion, no sore throat Cardiovascular: no chest pain, no palpitations, no edema, no syncope, no lightheadedness, no shortness of breath, no dyspnea on exertion, no claudication Respiratory: no cough, no shortness of breath, no dyspnea on exertion Gastrointestinal: no abdominal pain, no nausea, no vomiting Genitourinary Male: no dysuria, no flank pain Musculoskeletal: gait dysfunction, frequent falls, no neck stiffness, no neck pain, no myalgias Integumentary: no rash, no wounds Neurological: lack of coordination, vertigo, no head injury, no paralysis, no weakness, no numbness, no tingling, no seizures, no syncope, no headaches Endocrine: no cold intolerance, no heat intolerance, no polydipsia, no polyuria Hematologic/Lymphatic: no easy bruising, no easy bleeding Allergic/Immunologic: no anaphylaxis Physical Examination Last Vital Signs Temp 98.3 F 03/10/21 08:27 Pulse 72 03/10/21 08:27 Resp 20 03/10/21 08:27 BP 173/73 03/10/21 08:27 Pulse Ox 99 03/10/21 08:27 General appearance: no acute distress HEENT: Positive: EOMI, Normocephaly, Mucus Membranes Moist Neck: Positive: neck supple, trachea midline. Negative: JVD/HJR Cardiac: Positive: Reg Rate and Rhythm, S1/S2 Lungs: Positive: clear to auscultation (anteriorly) Neuro: Positive: Grossly Intact Abdomen: Positive: Soft. Negative: Tender Skin: Negative: Rash Musculoskeletal: No Pain Extremities: Present: upper extr. pulses, lower extr. pulses. Absent: edema Results 03/09/21 18:06 03/09/21 18:06 Cardiac Enzymes 03/09/21 Range/Units 18:06 AST 15 (5-40) units/L Lipids 03/09/21 Range/Units 18:06 Triglycerides 115 (2-149) mg/dL Cholesterol 138 (50-199) mg/dL HDL Cholesterol 45 (40-59) mg/dL Cholesterol/HDL Ratio 3.06 % CBC 03/09/21 Range/Units 18:06 WBC 12.5 H (4.5-11.0) K/mm3 RBC 3.64 L (3.65-5.03) M/mm3 Hgb 11.3 L (11.8-15.2) gm/dl Hct 32.3 L (35.5-45.6) % Plt Count 230 (140-440) K/mm3 Lymph # (Auto) 3.5 (1.2-5.4) K/mm3 [place] # (Auto) 1.2 H (0.0-0.8) K/mm3 Eos # (Auto) 0.2 (0.0-0.4) K/mm3 Baso # (Auto) 0.1 (0.0-0.1) K/mm3 Comprehensive Metabolic Panel 03/09/21 Range/Units 18:06 Sodium 136 L (137-145) mmol/L Potassium 3.5 L (3.6-5.0) mmol/L Chloride 97.1 L (98-107) mmol/L Carbon Dioxide 28 (22-30) mmol/L BUN 21 H (9-20) mg/dL Creatinine 1.2 (0.8-1.3) mg/dL Glucose 149 H (75-100) mg/dL Calcium 8.6 (8.4-10.2) mg/dL AST 15 (5-40) units/L ALT 9 (7-56) units/L Alkaline Phosphatase 104 (35-129) units/L Total Protein 6.9 (6.3-8.2) g/dL Albumin 3.4 L (3.9-5) g/dL - Imaging and Cardiology Echo: pending EKG: pending EKG interpretations - Telemetry EKG Rhythm: Sinus Rhythm Assessment and Plan Gait Dysfunction // ?Vertigo -Neuro consult pending -May trial Meclizine if sx persist Leukocytosis Chronic HFpEF -Compensated -Takes Torsemide 20mg daily as outpatient Accelerated HTN -Will optimize antihypertensive regimen as needed -Outpatient regimen: Amlodipine 10mg daily, Coreg 12.5mg BID, Aldactone 25mg daily, HCTZ 25mg daily, & Lisinopril 40mg daily ?Non-[place] Troponin Elevation -Obtain 12-lead ECG (none available for review) -Pt denies chest pain -Suspect non-[place] trop elevation in the setting of accelerated HTN HLD -Continue Atorvastatin 40mg daily Paranoid Personality Disorder -Mgmt per Primary Dementia Pt seen in conjunction with Dr. Robin, who agrees with the assessment and plan of care. - Patient Problems (1) Dysequilibrium Current Visit: Yes Status: Acute (2) Vertigo Current Visit: Yes Status: Suspected (3) Leukocytosis Current Visit: Yes Status: Acute (4) Chronic heart failure with preserved ejection fraction (HFpEF) Current Visit: Yes Status: Chronic (5) Accelerated hypertension Current Visit: Yes Status: Acute (6) Elevated troponin Current Visit: Yes Status: Acute (7) HLD (hyperlipidemia) Current Visit: Yes Status: Chronic Qualifiers: Hyperlipidemia type: mixed hyperlipidemia Qualified Code(s): E78.2 - Mixed hyperlipidemia (8) Paranoid personality disorder Current Visit: Yes Status: Chronic (9) Dementia Current Visit: Yes Status: Chronic
[2021-03-10] MEDS: ASPIRIN 325 MG TAB PO SCH (11:00)
--- NOTE | 2021-03-10 15:02 | Consultation ---
History of Present Illness Consult date: 03/10/21 Reason for Consult: Dysequilibrium Chief complaint: I get dizzy when I'm walking and when I sit up. History of present illness: 55 yo male with htn, chf, dementia who presents with 5 days of dizziness when he attempts to walk or when he sits up. He notes some blurred vision and nausea for the last few days and states that his blood pressure is up. He denies a headache, focal weakness/numbness/tingling, chest pain/pressure, neck/back pain, or any non-visual changes in his primary senses. Past History Past Medical History: heart failure, hypertension, other (dementia, paranoid personality disorder) Past Surgical History: denies: CABG, PTCA Social history: denies: smoking, alcohol abuse Family history: no significant family history Medications and Allergies Allergies Allergy/AdvReac Type Severity Reaction Status Date / Time No Known Allergies Allergy Verified 03/09/21 21:41 Home Medications Medication Instructions Recorded Confirmed Last Taken Type AtorvaSTATin [Lipitor] 40 mg PO HS 03/10/21 03/10/21 Unknown History Cholecalciferol (Vitamin D3) 50,000 unit PO QWEEK 03/10/21 03/10/21 Unknown History [Vitamin D3 50,000UNIT CAP] Fluticasone Propionate [Flovent 50 mcg IH DAILY 03/10/21 03/10/21 Unknown History Diskus] Folic Acid [Folvite] 1 mg PO QDAY 03/10/21 03/10/21 Unknown History LORazepam [Ativan] 1 mg PO Q6H 03/10/21 03/10/21 Unknown History Spironolactone [Aldactone] 25 mg PO QDAY 03/10/21 03/10/21 Unknown History Thiamine HCl [Vitamin B-1] 100 mg PO DAILY 03/10/21 03/10/21 Unknown History Torsemide [Demadex] 20 mg PO DAILY 03/10/21 03/10/21 Unknown History amLODIPine [Norvasc] 10 mg PO DAILY 03/10/21 03/10/21 Unknown History carvediloL [Coreg] 12.5 mg PO BID 03/10/21 03/10/21 Unknown History hydroCHLOROthiazide [HCTZ] 25 mg PO QDAY 03/10/21 03/10/21 Unknown History lisinopriL [Zestril TAB] 40 mg PO QDAY 03/10/21 03/10/21 Unknown History Active Meds: Active Medications Acetaminophen (Acetaminophen 325 Mg Tab) 650 mg PO Q4H PRN PRN Reason: Pain MILD(1-3)/Fever >100.5/DOUGLAS Aspirin (Aspirin 325 Mg Tab) 325 mg PO QDAY [facility] Atorvastatin Calcium (Atorvastatin 40 Mg Tab) 40 mg PO QHS [facility] Bisacodyl (Bisacodyl 10 Mg Rect Supp) [address] QDAY PRN PRN Reason: Constipation Heparin Sodium (Porcine) (Heparin 5,000 Unit/1 Ml Vial) 5,000 unit SUB-Q Q8HR ARMANDO Last Admin: 03/10/21 06:18 Dose: 5,000 unit Documented by: Hydralazine HCl (Hydralazine 20 Mg/1 Ml Inj) 10 mg IV Q4HR PRN PRN Reason: Blood Pressure Magnesium Hydroxide (Magnesium Hydroxide (Mom) Oral Liqd Udc) 30 ml PO Q4H PRN PRN Reason: Constipation Metoclopramide HCl (Metoclopramide 10 Mg Tab) 10 mg PO Q6H PRN PRN Reason: Nausea And Vomiting Morphine Sulfate (Morphine 2 Mg/1 Ml Inj) 2 mg IV Q4H PRN PRN Reason: Pain, Moderate (4-6) Morphine Sulfate (Morphine 4 Mg/1 Ml Inj) 4 mg IV Q4H PRN PRN Reason: Pain , Severe (7-10) Ondansetron HCl (Ondansetron 4 Mg/2 Ml Inj) 4 mg IV Q8H PRN PRN Reason: Nausea And Vomiting Last Admin: 03/10/21 12:24 Dose: 4 mg Documented by: Promethazine HCl (Promethazine 25 Mg Rect Supp) [address] Q6H PRN PRN Reason: Nausea And Vomiting Sodium Chloride (Sodium Chloride 0.9% 10 Ml Flush Syringe) 10 ml IV BID ARMANDO Sodium Chloride (Sodium Chloride 0.9% 10 Ml Flush Syringe) 10 ml IV PRN PRN PRN Reason: LINE FLUSH Review of Systems All systems: negative (as per HPI;) Physical Examination - Vital Signs Vital Signs: Vital Signs Temp Pulse Resp BP Pulse Ox 98.2 F 109 H 18 183/86 97 03/09/21 17:13 03/09/21 17:13 03/09/21 17:13 03/09/21 17:13 03/09/21 17:13 - Physical Exam Narrative exam: Gen: nad, well-nourished; Head: normocephalic; Eyes: no gaze deviation; no ptosis; ENT: normal vocalization; CVS: warm and well-perfused; Pulm: no respiratory distress; GI: appears non-distended; Ext: no cyanosis appreciated at distal extremities; Skin: no acute rash appreciated at distal extremities; Heme: no pathologic bruising appreciated at distal extremities; Neuro: alert, oriented to name, , president Jan, but not: age, month, year; no dysarthria, no aphasia, CN 2 - PERRL, visual jay grossly intact, CN 3, 4, 6 - EOMI, CN 5 - facial sensation symmetric to light touch, CN 7 - facial movement symmetric, CN 8 - hearing grossly intact, CN 9, 10 - uvula midline, CN 11 - shrug symmetric, CN 12 - tongue midline; Motor - at least 4+5 at all exts except 4/5 at RUE/RLE; Sensory - light touch symmetric, Cerebellar - fnf /hts de ficit at right arm/leg, Gait - deferred secondary to fall risk; NIHSS (1a.) Level of Consciousness:0 (1b.) LOC Questions:2 (1c.) LOC Commands:0 (2.) Best Gaze:0 (3.) Visual:0 (4.) Facial Palsy:0 (5a.) Motor Arm, Left:0 (5b.) Motor Arm, Right:0 (6a.) Motor Leg, Left:0 (6b.) Motor Leg, Right:0 (7.) Limb Ataxia:2 (8.) Sensory:0 (9.) Best Language:0 (10.) Dysarthria:0 (11.) Extinction and Inattention:0 NIHSS Total Score: 4 Results - Laboratory Findings CBC and BMP: 03/09/21 18:06 03/09/21 18:06 Abnormal Lab Findings: Abnormal Labs 03/09/21 03/09/21 03/10/21 18:06 18:06 00:24 WBC 12.5 H RBC 3.64 L Hgb 11.3 L Hct 32.3 L MCHC 35 H [place] % (Auto) 9.4 H [place] # (Auto) 1.2 H Sodium 136 L Potassium 3.5 L Chloride 97.1 L BUN 21 H Glucose 149 H Troponin T 0.056 H 0.058 H Albumin 3.4 L Assessment and Plan 55 yo male with htn, chf, dementia who presents with 5 days of dizziness when he attempts to walk or when he sits up. He notes some blurred vision and nausea for the last few days and states that his blood pressure is up. He denies a headache, focal weakness/numbness/tingling, chest pain/pressure, neck/back pain, or any non-visual changes in his primary senses. 1. Acute/Subacute Ischemic Stroke ([facility]: IC[facility]) - noted w/ unilateral right- sided findings and pt denies a hx of stroke; ASA 325 mg PO qday, MRI Brain w/ & w/o contrast, TTEcho, check LDL/HgbA1C/TSH; telemetry, NIHSS q4 hours; SBP goal 160-200 mmHg and DBP 80-100 mmHg for 48 hours. Statin therapy for a goal LDL of 70, when patient passes swallow evaluation. PT/OT/ST/Swallow evaluation. Long- term risk-factor modification, including a strict diet/exercise regimen for secondary stroke prophylaxis. 2. Hypertension - goal SBP 160-200 mmHg and DBP 80-100 mmHg for 48 hours. 3. Hyperlipidemia - goal LDL of 70 w/ statin therapy if no contraindications. 4. Right-sided weakness - pt/ot evaluation/monitoring. 5. Unsteady Gait - pt/ot evaluation/monitoring. 6. Orthostatic Vertigo w/ nausea - recommend orthostatic vitals. 7. Dementia - recommend b12, tsh, thiamine, prealbmin, rpr, hiv. Henry Terrell MD Neurology [id number]
--- NOTE | 2021-03-10 16:55 | Magnetic Resonance Report ---
NONENHANCED MR SCAN OF THE BRAIN: INDICATION / CLINICAL INFORMATION: STROKE. TECHNIQUE: Multiplanar, multisequence MR images of the brain obtained. COMPARISON: CT scan from 03/09/2021 FINDINGS: BRAIN / INTRACRANIAL CONTENTS: No acute ischemia, acute hemorrhage, mass effect, midline shift, or hy drocephalus. Chronic right thalamic lacune slightly prominent perivascular spaces in the frontal lob es bilaterally near the vertex CRANIOCERVICAL JUNCTION: No significant abnormality. VASCULAR FLOW-VOIDS: No significant abnormality. ORBITS: No significant abnormality of visualized orbits. SINUSES / MASTOIDS: No significant abnormality of visualized sinuses and mastoid air cells. ADDITIONAL FINDINGS: Degenerative changes in the left mandibular condyle IMPRESSION: 1. No acute focal parenchymal lesion in the brain Signer Name: Karlie Wang MD Signed: 03/10/2021 4:50 PM Workstation Name: [id number]
--- NOTE | 2021-03-10 22:00 | Vascular Lab Report ---
DUPLEX DOPPLER ULTRASOUND CAROTID, BILATERAL INDICATION / CLINICAL INFORMATION: stroke. COMPARISON: None available. FINDINGS: RIGHT CAROTID: - PLAQUE ESTIMATE (%): < 50% - CCA velocity: 103 cm/sec. - ICA peak systolic velocity: 111 cm/sec. - ICA/CCA PSV Ratio: 1.1 Right Vertebral Artery: Antegrade flow. LEFT CAROTID: - PLAQUE ESTIMATE (%): < 50% - CCA velocity: 147 cm/sec. - ICA peak systolic velocity: 112 cm/sec. - ICA/CCA PSV Ratio: 0.8 Left Vertebral Artery: Antegrade flow. IMPRESSION: 1. Right Internal Carotid Artery: Less than 50% diameter stenosis. 2. Left Internal Carotid Artery: Less than 50% diameter stenosis. Velocity criteria are extrapolated from diameter data as defined by the Society of Radiologists in Ul trasound Consensus Conference, Radiology 2003; 229;340-346. NO STENOSIS (NORMAL) - Plaque = none; ICA PSV < 125 cm/sec; ICA/CCA PSV Ratio < 2.0 <50% STENOSIS - Plaque < 50%; ICA PSV < 125 cm/sec; ICA/CCA PSV Ratio < 2.0 50-69% STENOSIS - Plaque > 50%; ICA PSV = 125-230 cm/sec; ICA/CCA PSV Ratio = 2.0-4.0 >70% BUT <100% STENOSIS - Plaque > 50%; ICA PSV > 230 cm/sec; ICA/CCA PSV Ratio > 4.0 NEAR OCCLUSION - Plaque = visible lumen; ICA PSV = high/low/none; ICA/CCA PSV Ratio = variable TOTAL OCCLUSION - Plaque = no lumen; ICA PSV = none; ICA/CCA PSV Ratio = N/A Signer Name: Darron Recinos DO Signed: 03/10/2021 9:56 PM Workstation Name: [id number]
[2021-03-11] MEDS: HEPARIN 5,000 UNIT/1 ML VIAL SUB-Q SCH ×3 (06:43→21:15)
--- NOTE | 2021-03-11 09:55 | Progress Note ---
Assessment and Plan Assessment and plan: Acute CVA with right-sided weakness Unsteady gait Orthostatic vertigo Accelerated hypertension Hyperlipidemia Elevated troponin DVT prophylaxis 03/10/2021. Follow-up MRI and echocardiogram. CT of head negative. Neurology consultation pending. PT/OT. Cardiology consultation for elevated troponin. Continue antihypertensive medications. 03/11/2021. MRI and CTA of neck reveals no acute findings. CT of the head reveals atherosclerotic disease along the M1 segment of left middle cerebral art juan and at the P1 segment of the right posterior cerebral artery. Follow-up echocardiogram and speech evaluation. We will start a trial of meclizine for vertigo. Cardiology suspects that the troponin elevation is related to accelerated hypertension History Interval history: No new issues overnight Hospitalist Physical - Constitutional Vitals: Temp Pulse Resp BP Pulse Ox 98.2 F 64 18 156/68 98 03/11/21 04:31 03/11/21 04:31 03/10/21 23:48 03/11/21 04:31 03/10/21 23:48 General appearance: Present: no acute distress - EENT Eyes: Present: PERRL, EOM intact ENT: hearing intact, clear oral mucosa, dentition normal - Neck Neck: Present: supple, normal ROM - Respiratory Respiratory effort: normal Respiratory: bilateral: CTA - Cardiovascular Rhythm: regular Heart Sounds: Present: S1 & S2. Absent: gallop, rub - Extremities Extremities: no ischemia, No edema, Full ROM - Abdominal General gastrointestinal: soft, non-tender, non-distended, normal bowel sounds - Integumentary Integumentary: Present: clear, warm, dry - Neurologic Neurologic: CNII-XII intact, moves all extremities HEART Score - HEART Score Troponin: Troponin T 0.058 ng/mL (0.00-0.029) H 03/10/21 00:24 Results - Labs CBC & Chem 7: 03/09/21 18:06 03/09/21 18:06 Labs: Laboratory Last Values WBC 12.5 K/mm3 (4.5-11.0) H 03/09/21 18:06 RBC 3.64 M/mm3 (3.65-5.03) L 03/09/21 18:06 Hgb 11.3 gm/dl (11.8-15.2) L 03/09/21 18:06 Hct 32.3 % (35.5-45.6) L 03/09/21 18:06 MCV 89 fl (84-94) 03/09/21 18:06 MCH 31 pg (28-32) 03/09/21 18:06 MCHC 35 % (32-34) H 03/09/21 18:06 RDW 15.0 % (13.2-15.2) 03/09/21 18:06 Plt Count 230 K/mm3 (140-440) 03/09/21 18:06 Lymph % (Auto) 28.2 % (13.4-35.0) 03/09/21 18:06 Wheeler % (Auto) 9.4 % (0.0-7.3) H 03/09/21 18:06 Eos % (Auto) 1.8 % (0.0-4.3) 03/09/21 18:06 Baso % (Auto) 0.7 % (0.0-1.8) 03/09/21 18:06 Lymph # (Auto) 3.5 K/mm3 (1.2-5.4) 03/09/21 18:06 Wheeler # (Auto) 1.2 K/mm3 (0.0-0.8) H 03/09/21 18:06 Eos # (Auto) 0.2 K/mm3 (0.0-0.4) 03/09/21 18:06 Baso # (Auto) 0.1 K/mm3 (0.0-0.1) 03/09/21 18:06 Seg Neutrophils % 59.9 % (40.0-70.0) 03/09/21 18:06 Seg Neutrophils # 7.5 K/mm3 (1.8-7.7) 03/09/21 18:06 Sodium 136 mmol/L (137-145) L 03/09/21 18:06 Potassium 3.5 mmol/L (3.6-5.0) L 03/09/21 18:06 Chloride 97.1 mmol/L (98-107) L 03/09/21 18:06 Carbon Dioxide 28 mmol/L (22-30) 03/09/21 18:06 Anion Gap 14 mmol/L 03/09/21 18:06 BUN 21 mg/dL (9-20) H 03/09/21 18:06 Creatinine 1.2 mg/dL (0.8-1.3) 03/09/21 18:06 Estimated GFR > 60 ml/min 03/09/21 18:06 BUN/Creatinine Ratio 18 % 03/09/21 18:06 Glucose 149 mg/dL (75-100) H 03/09/21 18:06 POC Glucose 165 mg/dL (70-105) H 03/11/21 08:24 Calcium 8.6 mg/dL (8.4-10.2) 03/09/21 18:06 Magnesium 2.00 mg/dL (1.7-2.3) 03/09/21 18:06 Total Bilirubin 1.00 mg/dL (0.1-1.2) 03/09/21 18:06 AST 15 units/L (5-40) 03/09/21 18:06 ALT 9 units/L (7-56) 03/09/21 18:06 Alkaline Phosphatase 104 units/L (35-129) 03/09/21 18:06 Ammonia 27.0 umol/L (25-60) 03/09/21 18:06 Troponin T 0.058 ng/mL (0.00-0.029) H 03/10/21 00:24 Total Protein 6.9 g/dL (6.3-8.2) 03/09/21 18:06 Albumin 3.4 g/dL (3.9-5) L 03/09/21 18:06 Albumin/Globulin Ratio 1.0 % 03/09/21 18:06 Prealbumin 0.186 g/L (0.200-0.400) L 03/10/21 18:58 Triglycerides 115 mg/dL (2-149) 03/09/21 18:06 Cholesterol 138 mg/dL (50-199) 03/09/21 18:06 LDL Cholesterol Direct 76 mg/dL (50-130) 03/09/21 18:06 HDL Cholesterol 45 mg/dL (40-59) 03/09/21 18:06 Cholesterol/HDL Ratio 3.06 % 03/09/21 18:06 Vitamin B12 867.2 pg/mL (211-911) 03/10/21 18:58 Folate 19.96 ng/mL (7.3-26.0) 03/10/21 18:58 TSH 1.720 mlU/mL (0.270-4.200) 03/10/21 18:58 Urine Color Yellow (Yellow) 03/09/21 Unknown Urine Turbidity Clear (Clear) 03/09/21 Unknown Urine pH 5.0 (5.0-7.0) 03/09/21 Unknown Ur Specific [place] 1.008 (1.003-1.030) 03/09/21 Unknown Urine Protein >500 mg/dL (Negative) 03/09/21 Unknown Urine Glucose (UA) 50 mg/dL (Negative) 03/09/21 Unknown Urine Ketones Neg mg/dL (Negative) 03/09/21 Unknown Urine Blood Sm (Negative) 03/09/21 Unknown Urine Nitrite Neg (Negative) 03/09/21 Unknown Urine Bilirubin Neg (Negative) 03/09/21 Unknown Urine Urobilinogen < 2.0 mg/dL (<2.0) 03/09/21 Unknown Ur Leukocyte Esterase Neg (Negative) 03/09/21 Unknown Urine WBC (Auto) 1.0 /HPF (0.0-6.0) 03/09/21 Unknown Urine RBC (Auto) 2.0 /HPF (0.0-6.0) 03/09/21 Unknown U Epithel Cells (Auto) < 1.0 /HPF (0-13.0) 03/09/21 Unknown Syphilis IgG Antibody Nonreactive (NonReactive) 03/10/21 18:58 [place]/IV: Voiding Method Toilet Active Medications - Current Medications Current Medications: Generic Name Dose Route Start Last Admin Trade Name Freq PRN Reason Stop Dose Admin Acetaminophen 650 mg 03/09/21 23:53 Acetaminophen 325 Mg Tab PO Q4H PRN Pain MILD(1-3)/Fever >100.5/DOUGLAS Aspirin 325 mg 03/10/21 10:00 03/10/21 11:00 Aspirin 325 Mg Tab PO 325 mg QDAY ARMANDO Administration Atorvastatin Calcium 40 mg 03/10/21 22:00 03/10/21 21:06 Atorvastatin 40 Mg Tab PO 40 mg QHS ARMANDO Administration Bisacodyl 10 mg 03/09/21 23:53 Bisacodyl 10 Mg Rect Supp [place] QDAY PRN Constipation Heparin Sodium (Porcine) 5,000 unit 03/10/21 06:00 03/11/21 06:43 Heparin 5,000 Unit/1 Ml Vial SUB-Q 5,000 unit Q8HR ARMANDO Administration Hydralazine HCl 10 mg 03/09/21 23:58 Hydralazine 20 Mg/1 Ml Inj IV Q4HR PRN Blood Pressure Magnesium Hydroxide 30 ml 03/09/21 23:53 Magnesium Hydroxide (Mom) Oral Liqd Udc PO Q4H PRN Constipation Metoclopramide HCl 10 mg 03/09/21 23:53 Metoclopramide 10 Mg Tab PO Q6H PRN Nausea And Vomiting Morphine Sulfate 2 mg 03/09/21 23:53 Morphine 2 Mg/1 Ml Inj IV Q4H PRN Pain, Moderate (4-6) Morphine Sulfate 4 mg 03/09/21 23:53 Morphine 4 Mg/1 Ml Inj IV Q4H PRN Pain , Severe (7-10) Ondansetron HCl 4 mg 03/09/21 23:53 03/10/21 12:24 Ondansetron 4 Mg/2 Ml Inj IV 4 mg Q8H PRN Administration Nausea And Vomiting Promethazine HCl 25 mg 03/09/21 23:53 Promethazine 25 Mg Rect Supp [place] Q6H PRN Nausea And Vomiting Sodium Chloride 10 ml 03/10/21 10:00 03/10/21 21:07 Sodium Chloride 0.9% 10 Ml Flush Syringe IV 10 ml BID ARMANDO Administration Sodium Chloride 10 ml 03/09/21 23:53 Sodium Chloride 0.9% 10 Ml Flush Syringe IV PRN PRN LINE FLUSH Nutrition/Malnutrition Assess - Dietary Evaluation Nutrition/Malnutrition Findings: Nutrition Notes Start: 03/10/21 16:53 Freq: Status: Active Protocol: Document 03/10/21 16:53 GB (Rec: 03/10/21 17:00 GB [email or web address]) Nutrition Notes Need for Assessment generated from: MD Order Initial or Follow up Assessment Current Diagnosis Hypertension,Heart Failure Other Pertinent Diagnosis dementia Current Diet cardiac Labs/Tests 03/09: Na 136, K 3.5, BUN 21 Pertinent Medications KCl, NaCl Height 5 ft 7 in Weight 81.5 kg [place] Body Weight (kg) 67.27 BMI 28.1 Weight change and time frame no reported weight change Weight Status Overweight Subjective/Other Information Consult for diet education Percent of energy/protein needs met: PO intake of meals 75% or greater. Pt eating meal at time of consult. PO intake meets 100% estimated energy needs Burn Absent Trauma Absent GI Symptoms None Food Allergy No Skin Integrity/Comment no complications reported Current % PO Good (75-100%) Minimum of two criteria No #1 Nutrition Diagnosis Food and nutrition-related knowledge deficit Comments: Pt does have dementia Etiology CHF, HTN As Evidenced by Signs and Symptoms consult for nutrition education Is patient on ventilator? No Is Patient Ambulatory and/or Out of Bed Yes REE-(Ottosen-St. Jeor-ambulatory/OOB) [ NUTR.MSJOOB] Kcal/Kg value to use for calculation 25 Approximate Energy Requirements Using 2037 kcal/Kg Calculation Used for Recommendations Kcal/kg Additional Notes Protein: 0.8-1 g/kg @ 82k -82g Fluids: 1 ml/kcal or per MD Nutrition Intervention Change Diet Order: continue Nutrition Support: n/a Add Supplement/Snack (indicate name/kcal n/a /protein ) Teaching Recipient Patient Learning Readiness Good Teaching Methods Discussion,Handout Response to Teaching Verbalize understanding Education Handouts Provided Hypertension Nutrition Therapy by [facility] Nutrition Dietetics Barriers to Learning No Barriers Anticipated Discharge Needs: normal Revisit per MD consult or patient Sign Off request: Additional Comments Good PO, pt expressed understanding of salt intake management.
[2021-03-11] MEDS ORDERED: MECLIZINE 25 MG TAB PO PRN (10:00)
[2021-03-11] MEDS: ASPIRIN 325 MG TAB PO SCH (10:02)
--- NOTE | 2021-03-11 15:12 | Progress Note ---
Assessment and Plan Gait Dysfunction // ?Vertigo / Ischemic stroke? * Neuro following * May trial Meclizine if sx persist Chronic HFpEF(compensated) * Patient takes Torsemide 20mg daily as out patient * Echo 03/09/2021-EF 55 to 60%, moderate concentric left ventricular hypertrophy, mild diastolic dysfunction impaired relaxation pattern right ventricular systolic function is normal, left atrium is mildly dilated, right atrium normal in size bubble study did not demonstrate PFO Accelerated HTN * Permissive hypertension x 48 hours as per neuro. * Outpatient regimen: Amlodipine 10mg daily, Coreg 12.5mg BID, Aldactone 25mg daily, HCTZ 25mg daily, & Lisinopril 40mg daily Non-CO Troponin Elevation * KG shows normal sinus rhythm with no acute ischemic changes. AMI ruled out * Pt denies chest pain * Troponins minimally elevated likely elevated in the setting of accelerated HTN HLD * Continue Atorvastatin 40mg daily once Dementia * Paranoid Personality Disorder * Mgmt per Primary Plan: EKG shows normal sinus rhythm with no acute ischemic changes. Permissive HTN per neuro. Optimize antihypertensive regimen once outside 48hour window. Will continue to follow Pt seen in conjunction with Dr. Robin, who agrees with the assessment and plan of care. - Patient Problems (1) Accelerated hypertension Current Visit: Yes Status: Acute (2) Dysequilibrium Current Visit: Yes Status: Acute (3) Elevated troponin Current Visit: Yes Status: Acute (4) Hypertensive urgency Current Visit: Yes Status: Acute (5) Leukocytosis Current Visit: Yes Status: Acute (6) Chronic heart failure with preserved ejection fraction (HFpEF) Current Visit: Yes Status: Chronic (7) Dementia Current Visit: Yes Status: Chronic (8) HLD (hyperlipidemia) Current Visit: Yes Status: Chronic Qualifiers: Hyperlipidemia type: mixed hyperlipidemia Qualified Code(s): E78.2 - Mixed hyperlipidemia (9) Paranoid personality disorder Current Visit: Yes Status: Chronic (10) Vertigo Current Visit: Yes Status: Suspected Subjective Date of service: 03/11/21 Principal diagnosis: vertigo/weakness Interval history: Patient lying in bed and reports feeling much better sinus 65 with no events on monitor Objective Vital Signs Temp Pulse Resp BP BP Pulse Ox 03/11/21 12:00 66 03/11/21 11:59 98.9 F 67 20 161/69 98 03/11/21 11:00 97 03/11/21 04:31 98.2 F 64 156/68 03/10/21 23:48 18 98 03/10/21 23:46 98.2 F 69 18 174/74 97 03/10/21 20:00 69 03/10/21 19:22 98.6 F 73 18 174/71 98 03/10/21 17:00 71 03/10/21 15:22 98.0 F 73 20 204/95 100 - Physical Examination General: No Apparent Distress HEENT: Positive: EOMI, Normocephaly, Mucus Membranes Moist Neck: Positive: neck supple, trachea midline. Negative: JVD/HJR Cardiac: Positive: Reg Rate and Rhythm Lungs: Positive: Normal Breath Sounds Neuro: Positive: Grossly Intact Abdomen: Positive: Soft. Negative: Tender Skin: Negative: Rash Musculoskeletal: No Pain Extremities: Present: upper extr. pulses, lower extr. pulses. Absent: edema - Imaging and Cardiology EKG: report reviewed, image reviewed Echo: report reviewed - EKG Sinus rhythms and dysrhythmias: sinus rhythm
[2021-03-12] MEDS: hydrALAZINE 20 MG/1 ML INJ IV PRN ×2 (02:48→23:29)
[2021-03-12] MEDS: HEPARIN 5,000 UNIT/1 ML VIAL SUB-Q SCH ×3 (05:20→22:38)
[2021-03-12 06:13] LABS: Basophils % (Auto) 0.2 % (0.0-1.8); Eosinophils # (Auto) 0.4 K/mm3 (0.0-0.4); Eosinophils % (Auto) 3.3 % (0.0-4.3); Hematocrit 26.5 % (35.5-45.6); Hemoglobin 9.4 gm/dl (11.8-15.2); Lymphocytes # (Auto) 3.2 K/mm3 (1.2-5.4); Lymphocytes % (Auto) 27.2 % (13.4-35.0); Mean Corpuscular HGB Conc 36 % (32-34); Mean Corpuscular Volume 89 fl (84-94); Monocytes # (Auto) 1.3 K/mm3 (0.0-0.8); Monocytes % (Auto) 11.1 % (0.0-7.3); Platelet Count 197 K/mm3 (140-440); Red Blood Count 2.98 M/mm3 (3.65-5.03); Red Cell Distribution Width 14.7 % (13.2-15.2)
[2021-03-12 06:28] LABS: Calcium 7.6 mg/dL (8.4-10.2)
--- NOTE | 2021-03-12 09:53 | Progress Note ---
Assessment and Plan Assessment and plan: Acute CVA with right-sided weakness Unsteady gait Orthostatic vertigo Accelerated hypertension Hyperlipidemia Elevated troponin DVT prophylaxis 03/10/2021. Follow-up MRI and echocardiogram. CT of head negative. Neurology consultation pending. PT/OT. Cardiology consultation for elevated troponin. Continue antihypertensive medications. 03/11/2021. MRI and CTA of neck reveals no acute findings. CT of the head reveals atherosclerotic disease along the M1 segment of left middle cerebral art juan and at the P1 segment of the right posterior cerebral artery. Follow-up echocardiogram and speech evaluation. We will start a trial of meclizine for vertigo. Cardiology suspects that the troponin elevation is related to accelerated hypertension 03/12/2021. Echocardiogram reveals left ventricle with normal size and systolic function also normal. EF is 55 to 60%. Moderate concentric left ventricular hypertrophy. Physical therapy recommends CHASTITY. Speech therapy recommends regular diet with thin liquids. Await placement. History Interval history: No new issues overnight Hospitalist Physical - Constitutional Vitals: Temp Pulse Resp BP Pulse Ox 98.3 F 76 18 189/100 98 03/12/21 07:55 03/12/21 07:55 03/12/21 07:55 03/12/21 07:55 03/12/21 07:55 General appearance: Present: no acute distress - EENT Eyes: Present: PERRL, EOM intact ENT: hearing intact, clear oral mucosa, dentition normal - Neck Neck: Present: supple, normal ROM - Respiratory Respiratory effort: normal Respiratory: bilateral: CTA - Cardiovascular Rhythm: regular Heart Sounds: Present: S1 & S2. Absent: gallop, rub - Extremities Extremities: no ischemia, No edema, Full ROM - Abdominal General gastrointestinal: soft, non-tender, non-distended, normal bowel sounds - Integumentary Integumentary: Present: clear, warm, dry - Neurologic Neurologic: CNII-XII intact, moves all extremities HEART Score - HEART Score Troponin: Troponin T 0.058 ng/mL (0.00-0.029) H 03/10/21 00:24 Results - Labs CBC & Chem 7: 03/12/21 04:40 03/12/21 04:40 Labs: Laboratory Last Values WBC 11.6 K/mm3 (4.5-11.0) H 03/12/21 04:40 RBC 2.98 M/mm3 (3.65-5.03) L 03/12/21 04:40 Hgb 9.4 gm/dl (11.8-15.2) L 03/12/21 04:40 Hct 26.5 % (35.5-45.6) L 03/12/21 04:40 MCV 89 fl (84-94) 03/12/21 04:40 MCH 32 pg (28-32) 03/12/21 04:40 MCHC 36 % (32-34) H 03/12/21 04:40 RDW 14.7 % (13.2-15.2) 03/12/21 04:40 Plt Count 197 K/mm3 (140-440) 03/12/21 04:40 Lymph % (Auto) 27.2 % (13.4-35.0) 03/12/21 04:40 [place] % (Auto) 11.1 % (0.0-7.3) H 03/12/21 04:40 Eos % (Auto) 3.3 % (0.0-4.3) 03/12/21 04:40 Baso % (Auto) 0.2 % (0.0-1.8) 03/12/21 04:40 Lymph # (Auto) 3.2 K/mm3 (1.2-5.4) 03/12/21 04:40 [place] # (Auto) 1.3 K/mm3 (0.0-0.8) H 03/12/21 04:40 Eos # (Auto) 0.4 K/mm3 (0.0-0.4) 03/12/21 04:40 Baso # (Auto) 0.0 K/mm3 (0.0-0.1) 03/12/21 04:40 Seg Neutrophils % 58.2 % (40.0-70.0) 03/12/21 04:40 Seg Neutrophils # 6.8 K/mm3 (1.8-7.7) 03/12/21 04:40 Sodium 139 mmol/L (137-145) 03/12/21 04:40 Potassium 3.7 mmol/L (3.6-5.0) 03/12/21 04:40 Chloride 101.2 mmol/L (98-107) 03/12/21 04:40 Carbon Dioxide 21 mmol/L (22-30) L D 03/12/21 04:40 Anion Gap 21 mmol/L 03/12/21 04:40 BUN 27 mg/dL (9-20) H 03/12/21 04:40 Creatinine 2.7 mg/dL (0.8-1.3) H D 03/12/21 04:40 Estimated GFR 30 ml/min 03/12/21 04:40 BUN/Creatinine Ratio 10 % 03/12/21 04:40 Glucose 141 mg/dL (75-100) H 03/12/21 04:40 POC Glucose 127 mg/dL (70-105) H 03/12/21 07:55 Calcium 7.6 mg/dL (8.4-10.2) L 03/12/21 04:40 Magnesium 2.00 mg/dL (1.7-2.3) 03/09/21 18:06 Total Bilirubin 1.00 mg/dL (0.1-1.2) 03/09/21 18:06 AST 15 units/L (5-40) 03/09/21 18:06 ALT 9 units/L (7-56) 03/09/21 18:06 Alkaline Phosphatase 104 units/L (35-129) 03/09/21 18:06 Ammonia 27.0 umol/L (25-60) 03/09/21 18:06 Troponin T 0.058 ng/mL (0.00-0.029) H 03/10/21 00:24 Total Protein 6.9 g/dL (6.3-8.2) 03/09/21 18:06 Albumin 3.4 g/dL (3.9-5) L 03/09/21 18:06 Albumin/Globulin Ratio 1.0 % 03/09/21 18:06 Prealbumin 0.186 g/L (0.200-0.400) L 03/10/21 18:58 Triglycerides 115 mg/dL (2-149) 03/09/21 18:06 Cholesterol 138 mg/dL (50-199) 03/09/21 18:06 LDL Cholesterol Direct 76 mg/dL (50-130) 03/09/21 18:06 HDL Cholesterol 45 mg/dL (40-59) 03/09/21 18:06 Cholesterol/HDL Ratio 3.06 % 03/09/21 18:06 Vitamin B12 867.2 pg/mL (211-911) 03/10/21 18:58 Folate 19.96 ng/mL (7.3-26.0) 03/10/21 18:58 TSH 1.720 mlU/mL (0.270-4.200) 03/10/21 18:58 Urine Color Yellow (Yellow) 03/09/21 Unknown Urine Turbidity Clear (Clear) 03/09/21 Unknown Urine pH 5.0 (5.0-7.0) 03/09/21 Unknown Ur Specific [place] 1.008 (1.003-1.030) 03/09/21 Unknown Urine Protein >500 mg/dL (Negative) 03/09/21 Unknown Urine Glucose (UA) 50 mg/dL (Negative) 03/09/21 Unknown Urine Ketones Neg mg/dL (Negative) 03/09/21 Unknown Urine Blood Sm (Negative) 03/09/21 Unknown Urine Nitrite Neg (Negative) 03/09/21 Unknown Urine Bilirubin Neg (Negative) 03/09/21 Unknown Urine Urobilinogen < 2.0 mg/dL (<2.0) 03/09/21 Unknown Ur Leukocyte Esterase Neg (Negative) 03/09/21 Unknown Urine WBC (Auto) 1.0 /HPF (0.0-6.0) 03/09/21 Unknown Urine RBC (Auto) 2.0 /HPF (0.0-6.0) 03/09/21 Unknown U Epithel Cells (Auto) < 1.0 /HPF (0-13.0) 03/09/21 Unknown Syphilis IgG Antibody Nonreactive (NonReactive) 03/10/21 18:58 [place]all/IV: Voiding Method Toilet Active Medications - Current Medications Current Medications: Generic Name Dose Route Start Last Admin Trade Name Freq PRN Reason Stop Dose Admin Acetaminophen 650 mg 03/09/21 23:53 Acetaminophen 325 Mg Tab PO Q4H PRN Pain MILD(1-3)/Fever >100.5/DOUGLAS Aspirin 325 mg 03/10/21 10:00 03/11/21 10:02 Aspirin 325 Mg Tab PO 325 mg QDAY ARMANDO Administration Atorvastatin Calcium 40 mg 03/10/21 22:00 03/11/21 21:17 Atorvastatin 40 Mg Tab PO 40 mg QHS ARMANDO Administration Bisacodyl 10 mg 03/09/21 23:53 Bisacodyl 10 Mg Rect Supp [place] QDAY PRN Constipation Heparin Sodium (Porcine) 5,000 unit 03/10/21 06:00 03/12/21 05:20 Heparin 5,000 Unit/1 Ml Vial SUB-Q 5,000 unit Q8HR ARMANDO Administration Hydralazine HCl 10 mg 03/09/21 23:58 03/12/21 02:48 Hydralazine 20 Mg/1 Ml Inj IV 10 mg Q4HR PRN Administration Blood Pressure Magnesium Hydroxide 30 ml 03/09/21 23:53 Magnesium Hydroxide (Mom) Oral Liqd Udc PO Q4H PRN Constipation Meclizine HCl 25 mg 03/11/21 10:00 Meclizine 25 Mg Tab PO Q8H PRN Vertigo Metoclopramide HCl 10 mg 03/09/21 23:53 Metoclopramide 10 Mg Tab PO Q6H PRN Nausea And Vomiting Morphine Sulfate 2 mg 03/09/21 23:53 Morphine 2 Mg/1 Ml Inj IV Q4H PRN Pain, Moderate (4-6) Morphine Sulfate 4 mg 03/09/21 23:53 Morphine 4 Mg/1 Ml Inj IV Q4H PRN Pain , Severe (7-10) Ondansetron HCl 4 mg 03/09/21 23:53 03/10/21 12:24 Ondansetron 4 Mg/2 Ml Inj IV 4 mg Q8H PRN Administration Nausea And Vomiting Promethazine HCl 25 mg 03/09/21 23:53 Promethazine 25 Mg Rect Supp [place] Q6H PRN Nausea And Vomiting Sodium Chloride 10 ml 03/10/21 10:00 03/11/21 21:15 Sodium Chloride 0.9% 10 Ml Flush Syringe IV 10 ml BID ARMANDO Administration Sodium Chloride 10 ml 03/09/21 23:53 Sodium Chloride 0.9% 10 Ml Flush Syringe IV PRN PRN LINE FLUSH Nutrition/Malnutrition Assess - Dietary Evaluation Nutrition/Malnutrition Findings: Nutrition Notes Start: 03/10/21 1 6:53 Freq: Status: Active Protocol: Document 03/10/21 16:53 GB (Rec: 03/10/21 17:00 GB [id number]) Nutrition Notes Need for Assessment generated from: MD Order Initial or Follow up Assessment Current Diagnosis Hypertension,Heart Failure Other Pertinent Diagnosis dementia Current Diet cardiac Labs/Tests 9/29: Na 136, K 3.5, BUN 21 Pertinent Medications KCl, NaCl Height 5 ft 7 in Weight 81.5 kg [place] Body Weight (kg) 67.27 BMI 28.1 Weight change and time frame no reported weight change Weight Status Overweight Subjective/Other Information Consult for diet education Percent of energy/protein needs met: PO intake of meals 75% or greater. Pt eating meal at time of consult. PO intake meets 100% estimated energy needs Burn Absent Trauma Absent GI Symptoms None Food Allergy No Skin Integrity/Comment no complications reported Current % PO Good (75-100%) Minimum of two criteria No #1 Nutrition Diagnosis Food and nutrition-related knowledge deficit Comments: Pt does have dementia Etiology CHF, HTN As Evidenced by Signs and Symptoms consult for nutrition education Is patient on ventilator? No Is Patient Ambulatory and/or Out of Bed Yes [facility] [ NUTR.MSJOOB] Kcal/Kg value to use for calculation 25 Approximate Energy Requirements Using 2037 kcal/Kg Calculation Used for Recommendations Kcal/kg Additional Notes Protein: 0.8-1 g/kg @ 82k -82g Fluids: 1 ml/kcal or per MD Nutrition Intervention Change Diet Order: continue Nutrition Support: n/a Add Supplement/Snack (indicate name/kcal n/a /protein ) Teaching Recipient Patient Learning Readiness Good Teaching Methods Discussion,Handout Response to Teaching Verbalize understanding Education Handouts Provided Hypertension Nutrition Therapy by [facility] Nutrition Dietetics Barriers to Learning No Barriers Anticipated Discharge Needs: normal Revisit per MD consult or patient Sign Off request: Additional Comments Good PO, pt expressed understanding of salt intake management.
[2021-03-12] MEDS: ASPIRIN 325 MG TAB PO SCH (10:15)
--- NOTE | 2021-03-12 11:01 | Progress Note ---
Assessment and Plan Gait Dysfunction // ?Vertigo / Ischemic stroke? * Neuro following * May trial Meclizine if sx persist Chronic HFpEF(compensated) * Patient takes Torsemide 20mg daily as out patient * Echo 03/09/2021-EF 55 to 60%, moderate concentric left ventricular hypertrophy, mild diastolic dysfunction impaired relaxation pattern right ventricular systolic function is normal, left atrium is mildly dilated, right atrium normal in size bubble study did not demonstrate PFO Accelerated HTN * Permissive hypertension x 48 hours as per neuro. * Outpatient regimen: Amlodipine 10mg daily, Coreg 12.5mg BID, Aldactone 25mg daily, HCTZ 25mg daily, & Lisinopril 40mg daily Non-MA Troponin Elevation * KG shows normal sinus rhythm with no acute ischemic changes. AMI ruled out * Pt denies chest pain * Troponins minimally elevated likely elevated in the setting of accelerated HTN HLD * Continue Atorvastatin 40mg daily once Dementia * Paranoid Personality Disorder * Mgmt per Primary * rec: restart home meds and pt is waiting for covid test to go back to [place] Subjective Date of service: 03/12/21 Principal diagnosis: vertigo/weakness Interval history: feeling well as per patient Objective Vital Signs Temp Pulse Resp BP BP Pulse Ox 03/12/21 07:55 98.3 F 76 18 189/100 98 03/12/21 05:20 98.6 F 75 18 193/80 97 03/12/21 02:48 74 178/68 03/12/21 00:22 97.6 F 74 18 178/68 95 03/11/21 23:00 95 03/11/21 20:42 98.8 F 76 18 169/74 98 03/11/21 16:36 98.6 F 74 20 170/75 99 03/11/21 12:00 66 03/11/21 11:59 98.9 F 67 20 161/69 98 - Physical Examination General: No Apparent Distress HEENT: Positive: EOMI, Normocephaly, Mucus Membranes Moist Neck: Positive: neck supple, trachea midline. Negative: JVD/HJR Cardiac: Positive: Reg Rate and Rhythm Lungs: Positive: clear to auscultation Neuro: Positive: Grossly Intact Abdomen: Positive: Soft. Negative: Tender Skin: Negative: Rash Musculoskeletal: No Pain Extremities: Present: upper extr. pulses, lower extr. pulses. Absent: edema - Labs and Meds CBC 03/12/21 Range/Units 04:40 WBC 11.6 H (4.5-11.0) K/mm3 RBC 2.98 L (3.65-5.03) M/mm3 Hgb 9.4 L (11.8-15.2) gm/dl Hct 26.5 L (35.5-45.6) % Plt Count 197 (140-440) K/mm3 Lymph # (Auto) 3.2 (1.2-5.4) K/mm3 [place] # (Auto) 1.3 H (0.0-0.8) K/mm3 Eos # (Auto) 0.4 (0.0-0.4) K/mm3 Baso # (Auto) 0.0 (0.0-0.1) K/mm3 Comprehensive Metabolic Panel 03/12/21 Range/Units 04:40 Sodium 139 (137-145) mmol/L Potassium 3.7 (3.6-5.0) mmol/L Chloride 101.2 (98-107) mmol/L Carbon Dioxide 21 L D (22-30) mmol/L BUN 27 H (9-20) mg/dL Creatinine 2.7 H D (0.8-1.3) mg/dL Glucose 141 H (75-100) mg/dL Calcium 7.6 L (8.4-10.2) mg/dL - Imaging and Cardiology EKG: report reviewed, image reviewed Echo: report reviewed - Telemetry EKG Rhythm: Sinus Rhythm - EKG Sinus rhythms and dysrhythmias: sinus rhythm
[2021-03-12] MEDS: carvediloL 12.5 MG TAB PO SCH ×2 (11:19→22:39)
[2021-03-12] MEDS: amLODIPine 10 MG TAB PO SCH (11:19)
[2021-03-12] MEDS: SPIRONOLACTONE 25 MG TAB PO SCH (11:19)
[2021-03-12] MEDS: FOLIC ACID 1 MG TAB PO SCH (11:20)
[2021-03-12] MEDS: hydroCHLOROthiazide 25 MG TAB PO SCH (11:20)
[2021-03-12] MEDS: TORSEMIDE 10 MG TAB PO SCH (11:20)
[2021-03-12] MEDS: LISINOPRIL 40 MG TAB PO SCH (11:21)
[2021-03-12] MEDS: THIAMINE 100 MG TAB PO SCH (11:21)
[2021-03-12] MEDS: BUDESONIDE 0.5 MG/2 ML NEBU IH SCH (20:35)
[2021-03-13] MEDS: HEPARIN 5,000 UNIT/1 ML VIAL SUB-Q SCH ×3 (05:40→21:04)
[2021-03-13] MEDS: BUDESONIDE 0.5 MG/2 ML NEBU IH SCH ×2 (08:12→23:57)
[2021-03-13] MEDS: hydroCHLOROthiazide 25 MG TAB PO SCH (09:09)
[2021-03-13] MEDS: SPIRONOLACTONE 25 MG TAB PO SCH (09:09)
[2021-03-13] MEDS: FOLIC ACID 1 MG TAB PO SCH (09:10)
[2021-03-13] MEDS: TORSEMIDE 10 MG TAB PO SCH (09:10)
[2021-03-13] MEDS: carvediloL 12.5 MG TAB PO SCH (09:10)
[2021-03-13] MEDS: amLODIPine 10 MG TAB PO SCH (09:10)
[2021-03-13] MEDS: ASPIRIN 325 MG TAB PO SCH (09:10)
[2021-03-13] MEDS: LISINOPRIL 40 MG TAB PO SCH (09:11)
[2021-03-13] MEDS: THIAMINE 100 MG TAB PO SCH (09:11)
[2021-03-13] MEDS: ONDANSETRON 4 MG/2 ML INJ IV PRN (09:21)
--- NOTE | 2021-03-13 09:57 | Progress Note ---
Assessment and Plan Assessment and plan: Acute CVA with right-sided weakness Unsteady gait Orthostatic vertigo Accelerated hypertension Hyperlipidemia Elevated troponin DVT prophylaxis 03/10/2021. Follow-up MRI and echocardiogram. CT of head negative. Neurology consultation pending. PT/OT. Cardiology consultation for elevated troponin. Continue antihypertensive medications. 03/11/2021. MRI and CTA of neck reveals no acute findings. CT of the head reveals atherosclerotic disease along the M1 segment of left middle cerebral art juan and at the P1 segment of the right posterior cerebral artery. Follow-up echocardiogram and speech evaluation. We will start a trial of meclizine for vertigo. Cardiology suspects that the troponin elevation is related to accelerated hypertension 03/12/2021. Echocardiogram reveals left ventricle with normal size and systolic function also normal. EF is 55 to 60%. Moderate concentric left ventricular hypertrophy. Physical therapy recommends CHASTITY. Speech therapy recommends regular diet with thin liquids. Await placement. History Interval history: No new issues overnight Hospitalist Physical - Constitutional Vitals: Temp Pulse Resp BP Pulse Ox 98.9 F 78 16 174/74 95 03/13/21 08:09 03/13/21 09:11 03/13/21 08:13 03/13/21 09:11 03/13/21 08:09 General appearance: Present: no acute distress - EENT Eyes: Present: PERRL, EOM intact ENT: hearing intact, clear oral mucosa, dentition normal - Neck Neck: Present: supple, normal ROM - Respiratory Respiratory effort: normal Respiratory: bilateral: CTA - Cardiovascular Rhythm: regular Heart Sounds: Present: S1 & S2. Absent: gallop, rub - Extremities Extremities: no ischemia, No edema, Full ROM - Abdominal General gastrointestinal: soft, non-tender, non-distended, normal bowel sounds - Integumentary Integumentary: Present: clear, warm, dry - Neurologic Neurologic: CNII-XII intact, moves all extremities HEART Score - HEART Score Troponin: Troponin T 0.058 ng/mL (0.00-0.029) H 03/10/21 00:24 Results - Labs CBC & Chem 7: 03/12/21 04:40 03/12/21 04:40 Labs: Laboratory Last Values WBC 11.6 K/mm3 (4.5-11.0) H 03/12/21 04:40 RBC 2.98 M/mm3 (3.65-5.03) L 03/12/21 04:40 Hgb 9.4 gm/dl (11.8-15.2) L 03/12/21 04:40 Hct 26.5 % (35.5-45.6) L 03/12/21 04:40 MCV 89 fl (84-94) 03/12/21 04:40 MCH 32 pg (28-32) 03/12/21 04:40 MCHC 36 % (32-34) H 03/12/21 04:40 RDW 14.7 % (13.2-15.2) 03/12/21 04:40 Plt Count 197 K/mm3 (140-440) 03/12/21 04:40 Lymph % (Auto) 27.2 % (13.4-35.0) 03/12/21 04:40 [place] % (Auto) 11.1 % (0.0-7.3) H 03/12/21 04:40 Eos % (Auto) 3.3 % (0.0-4.3) 03/12/21 04:40 Baso % (Auto) 0.2 % (0.0-1.8) 03/12/21 04:40 Lymph # (Auto) 3.2 K/mm3 (1.2-5.4) 03/12/21 04:40 [place] # (Auto) 1.3 K/mm3 (0.0-0.8) H 03/12/21 04:40 Eos # (Auto) 0.4 K/mm3 (0.0-0.4) 03/12/21 04:40 Baso # (Auto) 0.0 K/mm3 (0.0-0.1) 03/12/21 04:40 Seg Neutrophils % 58.2 % (40.0-70.0) 03/12/21 04:40 Seg Neutrophils # 6.8 K/mm3 (1.8-7.7) 03/12/21 04:40 Sodium 139 mmol/L (137-145) 03/12/21 04:40 Potassium 3.7 mmol/L (3.6-5.0) 03/12/21 04:40 Chloride 101.2 mmol/L (98-107) 03/12/21 04:40 Carbon Dioxide 21 mmol/L (22-30) L D 03/12/21 04:40 Anion Gap 21 mmol/L 03/12/21 04:40 BUN 27 mg/dL (9-20) H 03/12/21 04:40 Creatinine 2.7 mg/dL (0.8-1.3) H D 03/12/21 04:40 Estimated GFR 30 ml/min 03/12/21 04:40 BUN/Creatinine Ratio 10 % 03/12/21 04:40 Glucose 141 mg/dL (75-100) H 03/12/21 04:40 POC Glucose 119 mg/dL (70-105) H 03/13/21 08:08 Calcium 7.6 mg/dL (8.4-10.2) L 03/12/21 04:40 Magnesium 2.00 mg/dL (1.7-2.3) 03/09/21 18:06 Total Bilirubin 1.00 mg/dL (0.1-1.2) 03/09/21 18:06 AST 15 units/L (5-40) 03/09/21 18:06 ALT 9 units/L (7-56) 03/09/21 18:06 Alkaline Phosphatase 104 units/L (35-129) 03/09/21 18:06 Ammonia 27.0 umol/L (25-60) 03/09/21 18:06 Troponin T 0.058 ng/mL (0.00-0.029) H 03/10/21 00:24 Total Protein 6.9 g/dL (6.3-8.2) 03/09/21 18:06 Albumin 3.4 g/dL (3.9-5) L 03/09/21 18:06 Albumin/Globulin Ratio 1.0 % 03/09/21 18:06 Prealbumin 0.186 g/L (0.200-0.400) L 03/10/21 18:58 Triglycerides 115 mg/dL (2-149) 03/09/21 18:06 Cholesterol 138 mg/dL (50-199) 03/09/21 18:06 LDL Cholesterol Direct 76 mg/dL (50-130) 03/09/21 18:06 HDL Cholesterol 45 mg/dL (40-59) 03/09/21 18:06 Cholesterol/HDL Ratio 3.06 % 03/09/21 18:06 Vitamin B12 867.2 pg/mL (211-911) 03/10/21 18:58 Folate 19.96 ng/mL (7.3-26.0) 03/10/21 18:58 TSH 1.720 mlU/mL (0.270-4.200) 03/10/21 18:58 Urine Color Yellow (Yellow) 03/09/21 Unknown Urine Turbidity Clear (Clear) 03/09/21 Unknown Urine pH 5.0 (5.0-7.0) 03/09/21 Unknown Ur Specific [place] 1.008 (1.003-1.030) 03/09/21 Unknown Urine Protein >500 mg/dL (Negative) 03/09/21 Unknown Urine Glucose (UA) 50 mg/dL (Negative) 03/09/21 Unknown Urine Ketones Neg mg/dL (Negative) 03/09/21 Unknown Urine Blood Sm (Negative) 03/09/21 Unknown Urine Nitrite Neg (Negative) 03/09/21 Unknown Urine Bilirubin Neg (Negative) 03/09/21 Unknown Urine Urobilinogen < 2.0 mg/dL (<2.0) 03/09/21 Unknown Ur Leukocyte Esterase Neg (Negative) 03/09/21 Unknown Urine WBC (Auto) 1.0 /HPF (0.0-6.0) 03/09/21 Unknown Urine RBC (Auto) 2.0 /HPF (0.0-6.0) 03/09/21 Unknown U Epithel Cells (Auto) < 1.0 /HPF (0-13.0) 03/09/21 Unknown Syphilis IgG Antibody Nonreactive (NonReactive) 03/10/21 18:58 Coronavirus (PCR) Negative (Negative) 03/12/21 Unknown Kendall/IV: Voiding Method Urinal Active Medications - Current Medications Current Medications: Generic Name Dose Route Start Last Admin Trade Name Freq PRN Reason Stop Dose Admin Acetaminophen 650 mg 03/09/21 23:53 Acetaminophen 325 Mg Tab PO Q4H PRN Pain MILD(1-3)/Fever >100.5/DOUGLAS Amlodipine Besylate 10 mg 03/12/21 11:00 03/13/21 09:10 Amlodipine 10 Mg Tab PO 10 mg DAILY ARMANDO Administration Aspirin 325 mg 03/10/21 10:00 03/13/21 09:10 Aspirin 325 Mg Tab PO 325 mg QDAY ARMANDO Administration Atorvastatin Calcium 40 mg 03/10/21 22:00 03/12/21 22:38 Atorvastatin 40 Mg Tab PO 40 mg QHS ARMANDO Administration Bisacodyl 10 mg 03/09/21 23:53 Bisacodyl 10 Mg Rect Supp [place] QDAY PRN Constipation Budesonide 0.5 mg 03/12/21 20:00 03/13/21 08:12 Budesonide 0.5 Mg/2 Ml Nebu IH 0.5 mg Q12HRT ARMANDO Administration Carvedilol 12.5 mg 03/12/21 11:00 03/13/21 09:10 Carvedilol 12.5 Mg Tab PO 12.5 mg BID ARMANDO Administration Ergocalciferol 50,000 unit 03/19/21 10:00 Ergocalciferol (Vit D2) 50,000 Unit Cap PO Sa ARMANDO Folic Acid 1 mg 03/12/21 11:00 03/13/21 09:10 Folic Acid 1 Mg Tab PO 1 mg QDAY [facility] Administration Heparin Sodium (Porcine) 5,000 unit 03/10/21 06:00 03/13/21 05:40 Heparin 5,000 Unit/1 Ml Vial SUB-Q 5,000 unit Q8HR ARMANDO Administration Hydralazine HCl 10 mg 03/09/21 23:58 03/12/21 23:29 Hydralazine 20 Mg/1 Ml Inj IV 10 mg Q4HR PRN Administration Blood Pressure Hydrochlorothiazide 25 mg 03/12/21 11:00 03/13/21 09:09 Hydrochlorothiazide 25 Mg Tab PO 25 mg QDAY [facility] Administration Lisinopril 40 mg 03/12/21 11:00 03/13/21 09:11 Lisinopril 40 Mg Tab PO 40 mg QDAY [facility] Administration Magnesium Hydroxide 30 ml 03/09/21 23:53 Magnesium Hydroxide (Mom) Oral Liqd Udc PO Q4H PRN Constipation Meclizine HCl 25 mg 03/11/21 10:00 Meclizine 25 Mg Tab PO Q8H PRN Vertigo Metoclopramide HCl 10 mg 03/09/21 23:53 Metoclopramide 10 Mg Tab PO Q6H PRN Nausea And Vomiting Morphine Sulfate 2 mg 03/09/21 23:53 Morphine 2 Mg/1 Ml Inj IV Q4H PRN Pain, Moderate (4-6) Morphine Sulfate 4 mg 03/09/21 23:53 Morphine 4 Mg/1 Ml Inj IV Q4H PRN Pain , Severe (7-10) Ondansetron HCl 4 mg 03/09/21 23:53 03/13/21 09:21 Ondansetron 4 Mg/2 Ml Inj IV 4 mg Q8H PRN Administration Nausea And Vomiting Promethazine HCl 25 mg 03/09/21 23:53 Promethazine 25 Mg Rect Supp [place] Q6H PRN Nausea And Vomiting Sodium Chloride 10 ml 03/10/21 10:00 03/13/21 09:11 Sodium Chloride 0.9% 10 Ml Flush Syringe IV Not Given BID ARMANDO Sodium Chloride 10 ml 03/09/21 23:53 Sodium Chloride 0.9% 10 Ml Flush Syringe IV PRN PRN LINE FLUSH Spironolactone 25 mg 03/12/21 11:00 03/13/21 09:09 Spironolactone 25 Mg Tab PO 25 mg QDAY ARMANDO Administration Thiamine HCl 100 mg 03/12/21 11:00 03/13/21 09:11 Thiamine 100 Mg Tab PO 100 mg QDAY ARMANDO Administration Torsemide 20 mg 03/12/21 11:00 03/13/21 09:10 Torsemide 10 Mg Tab PO 20 mg QDAY ARMANDO Administration Nutrition/Malnutrition Assess - Dietary Evaluation Nutrition/Malnutrition Findings: Nutrition Notes Start: 03/10/21 16:53 Freq: Status: Active Protocol: Document 03/10/21 16:53 GB (Rec: 03/10/21 17:00 GB [id number]) Nutrition Notes Need for Assessment generated from: MD Order Initial or Follow up Assessment Current Diagnosis Hypertension,Heart Failure Other Pertinent Diagnosis dementia Current Diet cardiac Labs/Tests 03/09: Na 136, K 3.5, BUN 21 Pertinent Medications KCl, NaCl Height 5 ft 7 in Weight 81.5 kg [place] Body Weight (kg) 67.27 BMI 28.1 Weight change and time frame no reported weight change Weight Status Overweight Subjective/Other Information Consult for diet education Percent of energy/protein needs met: PO intake of meals 75% or greater. Pt eating meal at time of consult. PO intake meets 100% estimated energy needs Burn Absent Trauma Absent GI Symptoms None Food Allergy No Skin Integrity/Comment no complications reported Current % PO Good (75-100%) Minimum of two criteria No #1 Nutrition Diagnosis Food and nutrition-related knowledge deficit Comments: Pt does have dementia Etiology CHF, HTN As Evidenced by Signs and Symptoms consult for nutrition education Is patient on ventilator? No Is Patient Ambulatory and/or Out of Bed Yes REE-([place]-ambulatory/OOB) [ [email or web address].[email or web address]] Kcal/Kg value to use for calculation 25 Approximate Energy Requirements Using 2037 kcal/Kg Calculation Used for Recommendations Kcal/kg Additional Notes Protein: 0.8-1 g/kg @ 82k -82g Fluids: 1 ml/kcal or per MD Nutrition Intervention Change Diet Order: continue Nutrition Support: n/a Add Supplement/Snack (indicate name/kcal n/a /protein ) Teaching Recipient Patient Learning Readiness Good Teaching Methods Discussion,Handout Response to Teaching Verbalize understanding Education Handouts Provided Hypertension Nutrition Therapy by [facility] Nutrition Dietetics Barriers to Learning No Barriers Anticipated Discharge Needs: normal Revisit per MD consult or patient Sign Off request: Additional Comments Good PO, pt expressed understanding of salt intake management.
[2021-03-13] MEDS ORDERED: NON-FORMULARY EACH (Thiamine Hcl [Vitamin B-1] 100 MG Tablet) PO SCH (10:00)
[2021-03-13] MEDS ORDERED: NON-FORMULARY EACH (Fluticasone Propionate [Flovent Diskus] 50 MCG Blst.W.Dev) IH SCH (10:00)
[2021-03-13] MEDS ORDERED: SPIRONOLACTONE 25 MG TAB PO SCH (10:00)
[2021-03-13] MEDS ORDERED: NON-FORMULARY EACH (Torsemide [Demadex] 20 MG Tablet) PO SCH (10:00)
--- NOTE | 2021-03-13 10:00 | Progress Note ---
Assessment and Plan Assessment and plan: Acute CVA with right-sided weakness Unsteady gait Orthostatic vertigo Accelerated hypertension Hyperlipidemia Elevated troponin DVT prophylaxis 03/10/2021. Follow-up MRI and echocardiogram. CT of head negative. Neurology consultation pending. PT/OT. Cardiology consultation for elevated troponin. Continue antihypertensive medications. 03/11/2021. MRI and CTA of neck reveals no acute findings. CT of the head reveals atherosclerotic disease along the M1 segment of left middle cerebral art juan and at the P1 segment of the right posterior cerebral artery. Follow-up echocardiogram and speech evaluation. We will start a trial of meclizine for vertigo. Cardiology suspects that the troponin elevation is related to accelerated hypertension 03/12/2021. Echocardiogram reveals left ventricle with normal size and systolic function also normal. EF is 55 to 60%. Moderate concentric left ventricular hypertrophy. Physical therapy recommends CHASTITY. Speech therapy recommends regular diet with thin liquids. Await placement. 03/13/2021. Await placement. Continue aspirin and Lipitor. Continue medications for blood pressure control. History Interval history: No new issues overnight Hospitalist Physical - Constitutional Vitals: Temp Pulse Resp BP Pulse Ox 98.9 F 78 16 174/74 95 03/13/21 08:09 03/13/21 09:11 03/13/21 08:13 03/13/21 09:11 03/13/21 08:09 General appearance: Present: no acute distress - EENT Eyes: Present: PERRL, EOM intact ENT: hearing intact, clear oral mucosa, dentition normal - Neck Neck: Present: supple, normal ROM - Respiratory Respiratory effort: normal Respiratory: bilateral: CTA - Cardiovascular Rhythm: regular Heart Sounds: Present: S1 & S2. Absent: gallop, rub - Extremities Extremities: no ischemia, No edema, Full ROM - Abdominal General gastrointestinal: soft, non-tender, non-distended, normal bowel sounds - Integumentary Integumentary: Present: clear, warm, dry - Neurologic Neurologic: CNII-XII intact, moves all extremities HEART Score - HEART Score Troponin: Troponin T 0.058 ng/mL (0.00-0.029) H 03/10/21 00:24 Results - Labs CBC & Chem 7: 03/12/21 04:40 03/12/21 04:40 Labs: Laboratory Last Values WBC 11.6 K/mm3 (4.5-11.0) H 03/12/21 04:40 RBC 2.98 M/mm3 (3.65-5.03) L 03/12/21 04:40 Hgb 9.4 gm/dl (11.8-15.2) L 03/12/21 04:40 Hct 26.5 % (35.5-45.6) L 03/12/21 04:40 MCV 89 fl (84-94) 03/12/21 04:40 MCH 32 pg (28-32) 03/12/21 04:40 MCHC 36 % (32-34) H 03/12/21 04:40 RDW 14.7 % (13.2-15.2) 03/12/21 04:40 Plt Count 197 K/mm3 (140-440) 03/12/21 04:40 Lymph % (Auto) 27.2 % (13.4-35.0) 03/12/21 04:40 [place] % (Auto) 11.1 % (0.0-7.3) H 03/12/21 04:40 Eos % (Auto) 3.3 % (0.0-4.3) 03/12/21 04:40 Baso % (Auto) 0.2 % (0.0-1.8) 03/12/21 04:40 Lymph # (Auto) 3.2 K/mm3 (1.2-5.4) 03/12/21 04:40 [place] # (Auto) 1.3 K/mm3 (0.0-0.8) H 03/12/21 04:40 Eos # (Auto) 0.4 K/mm3 (0.0-0.4) 03/12/21 04:40 Baso # (Auto) 0.0 K/mm3 (0.0-0.1) 03/12/21 04:40 Seg Neutrophils % 58.2 % (40.0-70.0) 03/12/21 04:40 Seg Neutrophils # 6.8 K/mm3 (1.8-7.7) 03/12/21 04:40 Sodium 139 mmol/L (137-145) 03/12/21 04:40 Potassium 3.7 mmol/L (3.6-5.0) 03/12/21 04:40 Chloride 101.2 mmol/L (98-107) 03/12/21 04:40 Carbon Dioxide 21 mmol/L (22-30) L D 03/12/21 04:40 Anion Gap 21 mmol/L 03/12/21 04:40 BUN 27 mg/dL (9-20) H 03/12/21 04:40 Creatinine 2.7 mg/dL (0.8-1.3) H D 03/12/21 04:40 Estimated GFR 30 ml/min 03/12/21 04:40 BUN/Creatinine Ratio 10 % 03/12/21 04:40 Glucose 141 mg/dL (75-100) H 03/12/21 04:40 POC Glucose 119 mg/dL (70-105) H 03/13/21 08:08 Calcium 7.6 mg/dL (8.4-10.2) L 03/12/21 04:40 Magnesium 2.00 mg/dL (1.7-2.3) 03/09/21 18:06 Total Bilirubin 1.00 mg/dL (0.1-1.2) 03/09/21 18:06 AST 15 units/L (5-40) 03/09/21 18:06 ALT 9 units/L (7-56) 03/09/21 18:06 Alkaline Phosphatase 104 units/L (35-129) 03/09/21 18:06 Ammonia 27.0 umol/L (25-60) 03/09/21 18:06 Troponin T 0.058 ng/mL (0.00-0.029) H 03/10/21 00:24 Total Protein 6.9 g/dL (6.3-8.2) 03/09/21 18:06 Albumin 3.4 g/dL (3.9-5) L 03/09/21 18:06 Albumin/Globulin Ratio 1.0 % 03/09/21 18:06 Prealbumin 0.186 g/L (0.200-0.400) L 03/10/21 18:58 Triglycerides 115 mg/dL (2-149) 03/09/21 18:06 Cholesterol 138 mg/dL (50-199) 03/09/21 18:06 LDL Cholesterol Direct 76 mg/dL (50-130) 03/09/21 18:06 HDL Cholesterol 45 mg/dL (40-59) 03/09/21 18:06 Cholesterol/HDL Ratio 3.06 % 03/09/21 18:06 Vitamin B12 867.2 pg/mL (211-911) 03/10/21 18:58 Folate 19.96 ng/mL (7.3-26.0) 03/10/21 18:58 TSH 1.720 mlU/mL (0.270-4.200) 03/10/21 18:58 Urine Color Yellow (Yellow) 03/09/21 Unknown Urine Turbidity Clear (Clear) 03/09/21 Unknown Urine pH 5.0 (5.0-7.0) 03/09/21 Unknown Ur Specific [place] 1.008 (1.003-1.030) 03/09/21 Unknown Urine Protein >500 mg/dL (Negative) 03/09/21 Unknown Urine Glucose (UA) 50 mg/dL (Negative) 03/09/21 Unknown Urine Ketones Neg mg/dL (Negative) 03/09/21 Unknown Urine Blood Sm (Negative) 03/09/21 Unknown Urine Nitrite Neg (Negative) 03/09/21 Unknown Urine Bilirubin Neg (Negative) 03/09/21 Unknown Urine Urobilinogen < 2.0 mg/dL (<2.0) 03/09/21 Unknown Ur Leukocyte Esterase Neg (Negative) 03/09/21 Unknown Urine WBC (Auto) 1.0 /HPF (0.0-6.0) 03/09/21 Unknown Urine RBC (Auto) 2.0 /HPF (0.0-6.0) 03/09/21 Unknown U Epithel Cells (Auto) < 1.0 /HPF (0-13.0) 03/09/21 Unknown Syphilis IgG Antibody Nonreactive (NonReactive) 03/10/21 18:58 Coronavirus (PCR) Negative (Negative) 03/12/21 Unknown Kendall/IV: Voiding Method Urinal Active Medications - Current Medications Current Medications: Generic Name Dose Route Start Last Admin Trade Name Freq PRN Reason Stop Dose Admin Acetaminophen 650 mg 03/09/21 23:53 Acetaminophen 325 Mg Tab PO Q4H PRN Pain MILD(1-3)/Fever >100.5/DOUGLAS Amlodipine Besylate 10 mg 03/12/21 11:00 03/13/21 09:10 Amlodipine 10 Mg Tab PO 10 mg DAILY ARMANDO Administration Aspirin 325 mg 03/10/21 10:00 03/13/21 09:10 Aspirin 325 Mg Tab PO 325 mg QDAY ARMANDO Administration Atorvastatin Calcium 40 mg 03/10/21 22:00 03/12/21 22:38 Atorvastatin 40 Mg Tab PO 40 mg QHS ARMANDO Administration Bisacodyl 10 mg 03/09/21 23:53 Bisacodyl 10 Mg Rect Supp [place] QDAY PRN Constipation Budesonide 0.5 mg 03/12/21 20:00 03/13/21 08:12 Budesonide 0.5 Mg/2 Ml Nebu IH 0.5 mg Q12HRT ARMANDO Administration Carvedilol 12.5 mg 03/12/21 11:00 03/13/21 09:10 Carvedilol 12.5 Mg Tab PO 12.5 mg BID ARMANDO Administration Ergocalciferol 50,000 unit 03/19/21 10:00 Ergocalciferol (Vit D2) 50,000 Unit Cap PO Sa ARMANDO Folic Acid 1 mg 03/12/21 11:00 03/13/21 09:10 Folic Acid 1 Mg Tab PO 1 mg QDAY ARMANDO Administration Heparin Sodium (Porcine) 5,000 unit 03/10/21 06:00 03/13/21 05:40 Heparin 5,000 Unit/1 Ml Vial SUB-Q 5,000 unit Q8HR ARMANDO Administration Hydralazine HCl 10 mg 03/09/21 23:58 03/12/21 23:29 Hydralazine 20 Mg/1 Ml Inj IV 10 mg Q4HR PRN Administration Blood Pressure Hydrochlorothiazide 25 mg 03/12/21 11:00 03/13/21 09:09 Hydrochlorothiazide 25 Mg Tab PO 25 mg QDAY ARMANDO Administration Lisinopril 40 mg 03/12/21 11:00 03/13/21 09:11 Lisinopril 40 Mg Tab PO 40 mg QDAY ARMANDO Administration Magnesium Hydroxide 30 ml 03/09/21 23:53 Magnesium Hydroxide (Mom) Oral Liqd Udc PO Q4H PRN Constipation Meclizine HCl 25 mg 03/11/21 10:00 Meclizine 25 Mg Tab PO Q8H PRN Vertigo Metoclopramide HCl 10 mg 03/09/21 23:53 Metoclopramide 10 Mg Tab PO Q6H PRN Nausea And Vomiting Morphine Sulfate 2 mg 03/09/21 23:53 Morphine 2 Mg/1 Ml Inj IV Q4H PRN Pain, Moderate (4-6) Morphine Sulfate 4 mg 03/09/21 23:53 Morphine 4 Mg/1 Ml Inj IV Q4H PRN Pain , Severe (7-10) Ondansetron HCl 4 mg 03/09/21 23:53 03/13/21 09:21 Ondansetron 4 Mg/2 Ml Inj IV 4 mg Q8H PRN Administration Nausea And Vomiting Promethazine HCl 25 mg 03/09/21 23:53 Promethazine 25 Mg Rect Supp [place] Q6H PRN Nausea And Vomiting Sodium Chloride 10 ml 03/10/21 10:00 03/13/21 09:11 Sodium Chloride 0.9% 10 Ml Flush Syringe IV Not Given BID ARMANDO Sodium Chloride 10 ml 03/09/21 23:53 Sodium Chloride 0.9% 10 Ml Flush Syringe IV PRN PRN LINE FLUSH Spironolactone 25 mg 03/12/21 11:00 03/13/21 09:09 Spironolactone 25 Mg Tab PO 25 mg QDAY ARMANDO Administration Thiamine HCl 100 mg 03/12/21 11:00 03/13/21 09:11 Thiamine 100 Mg Tab PO 100 mg QDAY ARMANDO Administration Torsemide 20 mg 03/12/21 11:00 03/13/21 09:10 Torsemide 10 Mg Tab PO 20 mg QDAY ARMANDO Administration Nutrition/Malnutrition Assess - Dietary Evaluation Nutrition/Malnutrition Findings: Nutrition Notes Start: 03/10/21 16:53 Freq: Status: Active Protocol: Document 03/10/21 16:53 GB (Rec: 03/10/21 17:00 GB [id number]) Nutrition Notes Need for Assessment generated from: MD Order Initial or Follow up Assessment Current Diagnosis Hypertension,Heart Failure Other Pertinent Diagnosis dementia Current Diet cardiac Labs/Tests 03/09: Na 136, K 3.5, BUN 21 Pertinent Medications KCl, NaCl Height 5 ft 7 in Weight 81.5 kg [place] Body Weight (kg) 67.27 BMI 28.1 Weight change and time frame no reported weight change Weight Status Overweight Subjective/Other Information Consult for diet education Percent of energy/protein needs met: PO intake of meals 75% or greater. Pt eating meal at time of consult. PO intake meets 100% estimated energy needs Burn Absent Trauma Absent GI Symptoms None Food Allergy No Skin Integrity/Comment no complications reported Current % PO Good (75-100%) Minimum of two criteria No #1 Nutrition Diagnosis Food and nutrition-related knowledge deficit Comments: Pt does have dementia Etiology CHF, HTN As Evidenced by Signs and Symptoms consult for nutrition education Is patient on ventilator? No Is Patient Ambulatory and/or Out of Bed Yes [facility] [ NUTR.MSJOOB] Kcal/Kg value to use for calculation 25 Approximate Energy Requirements Using 2037 kcal/Kg Calculation Used for Recommendations Kcal/kg Additional Notes Protein: 0.8-1 g/kg @ 82k -82g Fluids: 1 ml/kcal or per MD Nutrition Intervention Change Diet Order: continue Nutrition Support: n/a Add Supplement/Snack (indicate name/kcal n/a /protein ) Teaching Recipient Patient Learning Readiness Good Teaching Methods Discussion,Handout Response to Teaching Verbalize understanding Education Handouts Provided Hypertension Nutrition Therapy by [facility] Nutrition Dietetics Barriers to Learning No Barriers Anticipated Discharge Needs: normal Revisit per MD consult or patient Sign Off request: Additional Comments Good PO, pt expressed understanding of salt intake management.
[2021-03-13] MEDS ORDERED: carvediloL 12.5 MG TAB PO SCH ×2 (10:22→11:00)
--- NOTE | 2021-03-13 11:33 | Progress Note ---
Assessment and Plan Gait Dysfunction // ?Vertigo / Ischemic stroke? * Neuro following * May trial Meclizine if sx persist Chronic HFpEF(compensated) * Patient takes Torsemide 20mg daily as out patient * Echo 03/09/2021-EF 55 to 60%, moderate concentric left ventricular hypertrophy, mild diastolic dysfunction impaired relaxation pattern right ventricular systolic function is normal, left atrium is mildly dilated, right atrium normal in size bubble study did not demonstrate PFO Accelerated HTN * Permissive hypertension x 48 hours as per neuro. * Outpatient regimen: Amlodipine 10mg daily, Coreg 12.5mg BID, Aldactone 25mg daily, HCTZ 25mg daily, & Lisinopril 40mg daily Non-MT Troponin Elevation * KG shows normal sinus rhythm with no acute ischemic changes. AMI ruled out * Pt denies chest pain * Troponins minimally elevated likely elevated in the setting of accelerated HTN HLD * Continue Atorvastatin 40mg daily once Dementia * Paranoid Personality Disorder * Mgmt per Primary * rec: covid negative, increase coreg 25mg bid for better bp and heart rate control, awaiting transfer back to [facility] Subjective Date of service: 03/13/21 Principal diagnosis: vertigo/weakness Interval history: no sob Objective Vital Signs Temp Pulse Pulse Resp Resp BP Pulse Ox 03/13/21 09:11 78 174/74 03/13/21 09:10 78 174/74 03/13/21 09:09 78 174/74 03/13/21 08:13 82 16 03/13/21 08:09 98.9 F 78 18 174/74 95 03/13/21 07:50 76 03/13/21 03:33 18 98 03/13/21 00:34 97.8 F 75 18 130/58 98 03/12/21 23:29 210/106 03/12/21 22:39 76 205/106 03/12/21 20:37 75 18 03/12/21 19:23 99.9 F H 76 18 188/88 98 03/12/21 15:43 97.7 F 18 165/74 03/12/21 12:00 72 - Physical Examination General: No Apparent Distress HEENT: Positive: EOMI, Normocephaly, Mucus Membranes Moist Neck: Positive: neck supple, trachea midline. Negative: JVD/HJR Cardiac: Positive: Reg Rate and Rhythm Lungs: Positive: clear to auscultation Neuro: Positive: Grossly Intact Abdomen: Positive: Soft. Negative: Tender Skin: Negative: Rash Musculoskeletal: No Pain Extremities: Present: upper extr. pulses, lower extr. pulses. Absent: edema - Imaging and Cardiology EKG: report reviewed, image reviewed Echo: report reviewed - Telemetry EKG Rhythm: Sinus Rhythm (in 90-100) - EKG Sinus rhythms and dysrhythmias: sinus rhythm
[2021-03-13] MEDS ORDERED: carvediloL 25 MG TAB PO SCH (22:00)
[2021-03-14] MEDS: HEPARIN 5,000 UNIT/1 ML VIAL SUB-Q SCH ×3 (06:06→21:27)
[2021-03-14] MEDS: BUDESONIDE 0.5 MG/2 ML NEBU IH SCH ×2 (08:00→23:03)
--- NOTE | 2021-03-14 08:56 | Progress Note ---
Assessment and Plan Assessment and plan: Acute CVA with right-sided weakness Unsteady gait Orthostatic vertigo Accelerated hypertension Chronic heart failure with preserved EF. Compensated. Hyperlipidemia Elevated troponin Acute kidney injury. DVT prophylaxis 03/10/2021. Follow-up MRI and echocardiogram. CT of head negative. Neurology consultation pending. PT/OT. Cardiology consultation for elevated troponin. Continue antihypertensive medications. 03/11/2021. MRI and CTA of neck reveals no acute findings. CT of the head re veals atherosclerotic disease along the M1 segment of left middle cerebral artery and at the P1 segment of the right posterior cerebral artery. Follow-up echocardiogram and speech evaluation. We will start a trial of meclizine for vertigo. Cardiology suspects that the troponin elevation is related to accelerated hypertension 03/12/2021. Echocardiogram reveals left ventricle with normal size and systolic function also normal. EF is 55 to 60%. Moderate concentric left ventricular hypertrophy. Physical therapy recommends CHASTITY. Speech therapy recommends regular diet with thin liquids. Await placement. 03/13/2021. Await placement. Continue aspirin and Lipitor. Continue medications for blood pressure control. 03/14/2021. Await placement. Continue aspirin and Lipitor. Continue medic ations for blood pressure control. Patient with increase in creatinine. Recheck BMP today. Consider renal ultrasound. Patient is currently with Demadex, spironolactone and lisinopril. History Interval history: No new issues overnight Hospitalist Physical - Constitutional Vitals: Temp Pulse Resp BP Pulse Ox 98.7 F 64 18 137/74 100 03/14/21 08:07 03/14/21 08:13 03/14/21 08:13 03/14/21 08:07 03/14/21 08:07 General appearance: Present: no acute distress - EENT Eyes: Present: PERRL, EOM intact ENT: hearing intact, clear oral mucosa, dentition normal - Neck Neck: Present: supple, normal ROM - Respiratory Respiratory effort: normal Respiratory: bilateral: CTA - Cardiovascular Rhythm: regular Heart Sounds: Present: S1 & S2. Absent: gallop, rub - Extremities Extremities: no ischemia, No edema, Full ROM - Abdominal General gastrointestinal: soft, non-tender, non-distended, normal bowel sounds - Integumentary Integumentary: Present: clear, warm, dry - Neurologic Neurologic: CNII-XII intact, moves all extremities HEART Score - HEART Score Troponin: Troponin T 0.058 ng/mL (0.00-0.029) H 03/10/21 00:24 Results - Labs CBC & Chem 7: 03/12/21 04:40 03/12/21 04:40 Labs: Laboratory Last Values WBC 11.6 K/mm3 (4.5-11.0) H 03/12/21 04:40 RBC 2.98 M/mm3 (3.65-5.03) L 03/12/21 04:40 Hgb 9.4 gm/dl (11.8-15.2) L 03/12/21 04:40 Hct 26.5 % (35.5-45.6) L 03/12/21 04:40 MCV 89 fl (84-94) 03/12/21 04:40 MCH 32 pg (28-32) 03/12/21 04:40 MCHC 36 % (32-34) H 03/12/21 04:40 RDW 14.7 % (13.2-15.2) 03/12/21 04:40 Plt Count 197 K/mm3 (140-440) 03/12/21 04:40 Lymph % (Auto) 27.2 % (13.4-35.0) 03/12/21 04:40 [place] % (Auto) 11.1 % (0.0-7.3) H 03/12/21 04:40 Eos % (Auto) 3.3 % (0.0-4.3) 03/12/21 04:40 Baso % (Auto) 0.2 % (0.0-1.8) 03/12/21 04:40 Lymph # (Auto) 3.2 K/mm3 (1.2-5.4) 03/12/21 04:40 [place] # (Auto) 1.3 K/mm3 (0.0-0.8) H 03/12/21 04:40 Eos # (Auto) 0.4 K/mm3 (0.0-0.4) 03/12/21 04:40 Baso # (Auto) 0.0 K/mm3 (0.0-0.1) 03/12/21 04:40 Seg Neutrophils % 58.2 % (40.0-70.0) 03/12/21 04:40 Seg Neutrophils # 6.8 K/mm3 (1.8-7.7) 03/12/21 04:40 Sodium 139 mmol/L (137-145) 03/12/21 04:40 Potassium 3.7 mmol/L (3.6-5.0) 03/12/21 04:40 Chloride 101.2 mmol/L (98-107) 03/12/21 04:40 Carbon Dioxide 21 mmol/L (22-30) L D 03/12/21 04:40 Anion Gap 21 mmol/L 03/12/21 04:40 BUN 27 mg/dL (9-20) H 03/12/21 04:40 Creatinine 2.7 mg/dL (0.8-1.3) H D 03/12/21 04:40 Estimated GFR 30 ml/min 03/12/21 04:40 BUN/Creatinine Ratio 10 % 03/12/21 04:40 Glucose 141 mg/dL (75-100) H 03/12/21 04:40 POC Glucose 107 mg/dL (70-105) H 03/14/21 08:08 Calcium 7.6 mg/dL (8.4-10.2) L 03/12/21 04:40 Magnesium 2.00 mg/dL (1.7-2.3) 03/09/21 18:06 Total Bilirubin 1.00 mg/dL (0.1-1.2) 03/09/21 18:06 AST 15 units/L (5-40) 03/09/21 18:06 ALT 9 units/L (7-56) 03/09/21 18:06 Alkaline Phosphatase 104 units/L (35-129) 03/09/21 18:06 Ammonia 27.0 umol/L (25-60) 03/09/21 18:06 Troponin T 0.058 ng/mL (0.00-0.029) H 03/10/21 00:24 Total Protein 6.9 g/dL (6.3-8.2) 03/09/21 18:06 Albumin 3.4 g/dL (3.9-5) L 03/09/21 18:06 Albumin/Globulin Ratio 1.0 % 03/09/21 18:06 Prealbumin 0.186 g/L (0.200-0.400) L 03/10/21 18:58 Triglycerides 115 mg/dL (2-149) 03/09/21 18:06 Cholesterol 138 mg/dL (50-199) 03/09/21 18:06 LDL Cholesterol Direct 76 mg/dL (50-130) 03/09/21 18:06 HDL Cholesterol 45 mg/dL (40-59) 03/09/21 18:06 Cholesterol/HDL Ratio 3.06 % 03/09/21 18:06 Vitamin B12 867.2 pg/mL (211-911) 03/10/21 18:58 Folate 19.96 ng/mL (7.3-26.0) 03/10/21 18:58 TSH 1.720 mlU/mL (0.270-4.200) 03/10/21 18:58 Urine Color Yellow (Yellow) 03/09/21 Unknown Urine Turbidity Clear (Clear) 03/09/21 Unknown Urine pH 5.0 (5.0-7.0) 03/09/21 Unknown Ur Specific [place] 1.008 (1.003-1.030) 03/09/21 Unknown Urine Protein >500 mg/dL (Negative) 03/09/21 Unknown Urine Glucose (UA) 50 mg/dL (Negative) 03/09/21 Unknown Urine Ketones Neg mg/dL (Negative) 03/09/21 Unknown Urine Blood Sm (Negative) 03/09/21 Unknown Urine Nitrite Neg (Negative) 03/09/21 Unknown Urine Bilirubin Neg (Negative) 03/09/21 Unknown Urine Urobilinogen < 2.0 mg/dL (<2.0) 03/09/21 Unknown Ur Leukocyte Esterase Neg (Negative) 03/09/21 Unknown Urine WBC (Auto) 1.0 /HPF (0.0-6.0) 03/09/21 Unknown Urine RBC (Auto) 2.0 /HPF (0.0-6.0) 03/09/21 Unknown U Epithel Cells (Auto) < 1.0 /HPF (0-13.0) 03/09/21 Unknown Syphilis IgG Antibody Nonreactive (NonReactive) 03/10/21 18:58 Coronavirus (PCR) Negative (Negative) 03/12/21 Unknown Kendall/IV: Voiding Method Toilet Active Medications - Current Medications Current Medications: Generic Name Dose Route Start Last Admin Trade Name Freq PRN Reason Stop Dose Admin Acetaminophen 650 mg 09/29/21 23:53 Acetaminophen 325 Mg Tab PO Q4H PRN Pain MILD(1-3)/Fever >100.5/DOUGLAS Amlodipine Besylate 10 mg 03/12/21 11:00 03/13/21 09:10 Amlodipine 10 Mg Tab PO 10 mg DAILY ARMANDO Administration Aspirin 325 mg 03/10/21 10:00 03/13/21 09:10 Aspirin 325 Mg Tab PO 325 mg QDAY ARMANDO Administration Atorvastatin Calcium 40 mg 03/10/21 22:00 03/13/21 21:04 Atorvastatin 40 Mg Tab PO 40 mg QHS ARMANDO Administration Bisacodyl 10 mg 03/09/21 23:53 Bisacodyl 10 Mg Rect Supp [place] QDAY PRN Constipation Budesonide 0.5 mg 03/12/21 20:00 03/14/21 08:00 Budesonide 0.5 Mg/2 Ml Nebu IH 0.5 mg Q12HRT ARMANDO Administration Carvedilol 25 mg 03/13/21 22:00 03/13/21 21:04 Carvedilol 25 Mg Tab PO 25 mg Q12HR ARMANDO Administration Ergocalciferol 50,000 unit 03/19/21 10:00 Ergocalciferol (Vit D2) 50,000 Unit Cap PO Sa ARMANDO Folic Acid 1 mg 03/12/21 11:00 03/13/21 09:10 Folic Acid 1 Mg Tab PO 1 mg QDAY ARMANDO Administration Heparin Sodium (Porcine) 5,000 unit 03/10/21 06:00 03/14/21 06:06 Heparin 5,000 Unit/1 Ml Vial SUB-Q 5,000 unit Q8HR ARMANDO Administration Hydralazine HCl 10 mg 03/09/21 23:58 03/12/21 23:29 Hydralazine 20 Mg/1 Ml Inj IV 10 mg Q4HR PRN Administration Blood Pressure Hydrochlorothiazide 25 mg 03/12/21 11:00 03/13/21 09:09 Hydrochlorothiazide 25 Mg Tab PO 25 mg QDAY ARMANDO Administration Lisinopril 40 mg 03/12/21 11:00 03/13/21 09:11 Lisinopril 40 Mg Tab PO 40 mg QDAY ARMANDO Administration Magnesium Hydroxide 30 ml 03/09/21 23:53 Magnesium Hydroxide (Mom) Oral Liqd Udc PO Q4H PRN Constipation Meclizine HCl 25 mg 03/11/21 10:00 Meclizine 25 Mg Tab PO Q8H PRN Vertigo Metoclopramide HCl 10 mg 03/09/21 23:53 Metoclopramide 10 Mg Tab PO Q6H PRN Nausea And Vomiting Morphine Sulfate 2 mg 03/09/21 23:53 Morphine 2 Mg/1 Ml Inj IV Q4H PRN Pain, Moderate (4-6) Morphine Sulfate 4 mg 03/09/21 23:53 Morphine 4 Mg/1 Ml Inj IV Q4H PRN Pain , Severe (7-10) Ondansetron HCl 4 mg 03/09/21 23:53 03/13/21 09:21 Ondansetron 4 Mg/2 Ml Inj IV 4 mg Q8H PRN Administration Nausea And Vomiting Promethazine HCl 25 mg 03/09/21 23:53 Promethazine 25 Mg Rect Supp [place] Q6H PRN Nausea And Vomiting Sodium Chloride 10 ml 03/10/21 10:00 03/13/21 21:06 Sodium Chloride 0.9% 10 Ml Flush Syringe IV 10 ml BID ARMANDO Administration Sodium Chloride 10 ml 03/09/21 23:53 Sodium Chloride 0.9% 10 Ml Flush Syringe IV PRN PRN LINE FLUSH Spironolactone 25 mg 03/12/21 11:00 03/13/21 09:09 Spironolactone 25 Mg Tab PO 25 mg QDAY ARMANDO Administration Thiamine HCl 100 mg 03/12/21 11:00 03/13/21 09:11 Thiamine 100 Mg Tab PO 100 mg QDAY ARMANDO Administration Torsemide 20 mg 03/12/21 11:00 03/13/21 09:10 Torsemide 10 Mg Tab PO 20 mg QDAY ARMANDO Administration Nutrition/Malnutrition Assess - Dietary Evaluation Nutrition/Malnutrition Findings: Nutrition Notes Start: 03/10/21 16:53 Freq: Status: Active Protocol: Document 03/10/21 16:53 GB (Rec: 03/10/21 17:00 GB [id number]) Nutrition Notes Need for Assessment generated from: MD Order Initial or Follow up Assessment Current Diagnosis Hypertension,Heart Failure Other Pertinent Diagnosis dementia Current Diet cardiac Labs/Tests 03/09: Na 136, K 3.5, BUN 21 Pertinent Medications KCl, NaCl Height 5 ft 7 in Weight 81.5 kg [place] Body Weight (kg) 67.27 BMI 28.1 Weight change and time frame no reported weight change Weight Status Overweight Subjective/Other Information Consult for diet education Percent of energy/protein needs met: PO intake of meals 75% or greater. Pt eating meal at time of consult. PO intake meets 100% estimated energy needs Burn Absent Trauma Absent GI Symptoms None Food Allergy No Skin Integrity/Comment no complications reported Current % PO Good (75-100%) Minimum of two criteria No #1 Nutrition Diagnosis Food and nutrition-related knowledge deficit Comments: Pt does have dementia Etiology CHF, HTN As Evidenced by Signs and Symptoms consult for nutrition education Is patient on ventilator? No Is Patient Ambulatory and/or Out of Bed Yes REE-([place]-ambulatory/OOB) [ 2090.219 NUTR.MSJOOB] Kcal/Kg value to use for calculation 25 Approximate Energy Requirements Using 2037 kcal/Kg Calculation Used for Recommendations Kcal/kg Additional Notes Protein: 0.8-1 g/kg @ 82k -82g Fluids: 1 ml/kcal or per MD Nutrition Intervention Change Diet Order: continue Nutrition Support: n/a Add Supplement/Snack (indicate name/kcal n/a /protein ) Teaching Recipient Patient Learning Readiness Good Teaching Methods Discussion,Handout Response to Teaching Verbalize understanding Education Handouts Provided Hypertension Nutrition Therapy by [facility] Nutrition Dietetics Barriers to Learning No Barriers Anticipated Discharge Needs: normal Revisit per MD consult or patient Sign Off request: Additional Comments Good PO, pt expressed understanding of salt intake management.
[2021-03-14] MEDS: ASPIRIN 325 MG TAB PO SCH (09:09)
[2021-03-14] MEDS: THIAMINE 100 MG TAB PO SCH (09:09)
[2021-03-14] MEDS: FOLIC ACID 1 MG TAB PO SCH (09:09)
[2021-03-14] MEDS: amLODIPine 10 MG TAB PO SCH (09:11)
[2021-03-14] MEDS: SPIRONOLACTONE 25 MG TAB PO SCH (09:11)
[2021-03-14] MEDS: hydroCHLOROthiazide 25 MG TAB PO SCH (09:12)
[2021-03-14] MEDS: LISINOPRIL 40 MG TAB PO SCH (09:12)
[2021-03-14] MEDS: TORSEMIDE 10 MG TAB PO SCH (09:12)
[2021-03-14] MEDS: carvediloL 12.5 MG TAB PO SCH ×2 (10:07→21:27)
[2021-03-14 11:15] LABS: Calcium 8.3 mg/dL (8.4-10.2)
--- NOTE | 2021-03-14 14:26 | Electrocardiograph Report ---
[facility] Test Date: 2021-03-09 Test Time: 20:51:09 Pat Name: MARIANNE ANGUIANO Department: Room: A467 1 Gender: M Regional Clinical Director: LULÚ Hsu : 1965 Requested By: JOHNNA FLOREZ Order Number: [id number] Reading MD: Eveline Rai Measurements Intervals [place] Rate: 72 P: 65 [place]: 157 QRS: 72 QRSD: 99 T: QT: 371 QTc: 406 Interpretive Statements Sinus rhythm Nonspecific lateral ST and T wave abnormality No previous ECG available for comparison Electronically Signed On 03-14-2021 14:25:37 EDT by Eveline Rai
--- NOTE | 2021-03-14 14:35 | Electrocardiograph Report ---
[facility] Test Date: 2021-03-10 Test Time: 12:25:04 Pat Name: MARIANNE ANGUIANO Department: Room: A467 1 Gender: M [employer] Table [employer]er: HOWARD : 1965 Requested By: OLYA GOODWIN Order Number: [id number] Reading MD: Eveline Rai Measurements Intervals [place] Rate: 68 P: 49 MT: 153 QRS: 55 QRSD: 118 T: 198 QT: 393 QTc: 417 Interpretive Statements Sinus rhythm Nonspecific intraventricular conduction delay Abnrm T, consider ischemia, anterolateral lds Compared to ECG 03/09/2021 20:51:09 No significant change Electronically Signed On 03-14-2021 14:35:08 EDT by Eveline Rai
--- NOTE | 2021-03-14 15:17 | Progress Note ---
Assessment and Plan Gait Dysfunction // ?Vertigo / Ischemic stroke? * Neuro following * May trial Meclizine if sx persist Chronic HFpEF(compensated) * Currently on Torsemide 20mg daily * Echo 03/09/2021-EF 55 to 60%, moderate concentric left ventricular hypertrophy, mild diastolic dysfunction impaired relaxation pattern right ventricular s ystolic function is normal, left atrium is mildly dilated, right atrium normal in size bubble study did not demonstrate PFO Accelerated HTN * Outpatient regimen: Amlodipine 10mg daily, Coreg 12.5mg BID, Aldactone 25mg daily, HCTZ 25mg daily, & Lisinopril 40mg daily HEIDE * Creatinine 1.1->2.8 * Management per primary team Non-FL Troponin Elevation * EKG shows normal sinus rhythm with no acute ischemic changes. AMI ruled out * Pt denies chest pain * Troponins minimally elevated likely elevated in the setting of accelerated HTN HLD * Continue Atorvastatin 40mg daily once Dementia * Paranoid Personality Disorder * Mgmt per Primary Plan: In setting of HEIDE will hold torsemide and lisinopril. Will continue to follow Pt seen in conjunction with Dr. Bejarano, who agrees with the assessment and plan of care. - Patient Problems (1) Accelerated hypertension Current Visit: Yes Status: Acute (2) Dysequilibrium Current Visit: Yes Status: Acute (3) Elevated troponin Current Visit: Yes Status: Acute (4) Hypertensive urgency Current Visit: Yes Status: Acute (5) Leukocytosis Current Visit: Yes Status: Acute (6) Chronic heart failure with preserved ejection fraction (HFpEF) Current Visit: Yes Status: Chronic (7) Dementia Current Visit: Yes Status: Chronic (8) HLD (hyperlipidemia) Current Visit: Yes Status: Chronic Qualifiers: Hyperlipidemia type: mixed hyperlipidemia Qualified Code(s): E78.2 - Mixed hyperlipidemia (9) Paranoid personality disorder Current Visit: Yes Status: Chronic (10) Vertigo Current Visit: Yes Status: Suspected Subjective Date of service: 03/14/21 Principal diagnosis: vertigo/weakness Interval history: Patient lying in bed and reports feeling much better sinus 68 with no events on monitor Objective Vital Signs Temp Pulse Pulse Pulse Resp Resp BP 03/14/21 13:02 139/67 03/14/21 11:00 65 03/14/21 10:07 64 137/74 03/14/21 09:12 64 137/74 03/14/21 09:11 64 137/74 03/14/21 08:13 64 18 03/14/21 08:07 98.7 F 64 18 137/74 03/14/21 07:39 65 18 03/14/21 03:39 98.4 F 65 18 112/54 03/13/21 23:57 88 16 03/13/21 23:30 98.6 F 69 18 129/62 03/13/21 21:18 65 18 03/13/21 19:31 97.3 F L 105 H 18 145/81 03/13/21 16:14 98.6 F 75 18 129/65 Pulse Ox 03/14/21 13:02 03/14/21 11:00 03/14/21 10:07 03/14/21 09:12 03/14/21 09:11 03/14/21 08:13 03/14/21 08:07 100 03/14/21 07:39 98 03/14/21 03:39 98 03/13/21 23:57 03/13/21 23:30 96 03/13/21 21:18 98 03/13/21 19:31 98 03/13/21 16:14 98 - Physical Examination General: No Apparent Distress HEENT: Positive: EOMI, Normocephaly, Mucus Membranes Moist Neck: Positive: neck supple, trachea midline. Negative: JVD/HJR Lungs: Positive: Normal Exam Neuro: Positive: Grossly Intact Abdomen: Positive: Soft. Negative: Tender Skin: Negative: Rash Musculoskeletal: No Pain Extremities: Present: upper extr. pulses, lower extr. pulses. Absent: edema - Labs and Meds Comprehensive Metabolic Panel 03/14/21 Range/Units 10:26 Sodium 139 (137-145) mmol/L Potassium 4.2 (3.6-5.0) mmol/L Chloride 99.4 (98-107) mmol/L Carbon Dioxide 25 (22-30) mmol/L BUN 31 H (9-20) mg/dL Creatinine 2.8 H (0.8-1.3) mg/dL Glucose 142 H (75-100) mg/dL Calcium 8.3 L (8.4-10.2) mg/dL - Imaging and Cardiology EKG: report reviewed, image reviewed Echo: report reviewed - Telemetry EKG Rhythm: Sinus Rhythm - EKG Sinus rhythms and dysrhythmias: sinus rhythm
[2021-03-15] MEDS: HEPARIN 5,000 UNIT/1 ML VIAL SUB-Q SCH ×3 (06:07→23:57)
[2021-03-15 06:31] LABS: Calcium 8.1 mg/dL (8.4-10.2)
[2021-03-15] MEDS: BUDESONIDE 0.5 MG/2 ML NEBU IH SCH ×2 (09:27→21:25)
[2021-03-15] MEDS: THIAMINE 100 MG TAB PO SCH (10:41)
[2021-03-15] MEDS: ASPIRIN 325 MG TAB PO SCH (10:41)
[2021-03-15] MEDS: SPIRONOLACTONE 25 MG TAB PO SCH (10:41)
[2021-03-15] MEDS: hydroCHLOROthiazide 25 MG TAB PO SCH (10:41)
[2021-03-15] MEDS: amLODIPine 10 MG TAB PO SCH (10:41)
[2021-03-15] MEDS: FOLIC ACID 1 MG TAB PO SCH (10:41)
[2021-03-15] MEDS: carvediloL 12.5 MG TAB PO SCH ×2 (10:41→23:57)
--- NOTE | 2021-03-15 12:11 | Consultation ---
History of Present Illness - Reason for Consult Consult date: 03/15/21 acute renal failure - History of Present Illness This is a 55 year old male who was admitted here on 03/09/21 for dizziness, unsteady gait and hypertension chief complaint. Patient was evaluated for CVA. Ct of head was negative. Cardiology was consulted for elevated troponin levels found on admission labs. Serum creatinine on admission was 1.2 which cheo to 2.7 today. Baseline serum creatinine unknown. Patient has history of Hypertension and CHF. We are being consulted for management of this patient's Acute Renal Failure. Past History Past Medical History: heart failure, hypertension, other (dementia, paranoid personality disorder) Past Surgical History: denies: CABG, PTCA Social history: denies: smoking, alcohol abuse Family history: no significant family history Medications and Allergies Allergies Allergy/AdvReac Type Severity Reaction Status Date / Time No Known Allergies Allergy Verified 03/09/21 21:41 Home Medications Medication Instructions Recorded Confirmed Last Taken Type AtorvaSTATin [Lipitor] 40 mg PO HS 03/10/21 03/10/21 Unknown History Cholecalciferol (Vitamin D3) 50,000 unit PO QWEEK 03/10/21 03/10/21 Unknown History [Vitamin D3 50,000UNIT CAP] Fluticasone Propionate [Flovent 50 mcg IH DAILY 03/10/21 03/10/21 Unknown History Diskus] Folic Acid [Folvite] 1 mg PO QDAY 03/10/21 03/10/21 Unknown History LORazepam [Ativan] 1 mg PO Q6H 03/10/21 03/10/21 Unknown History Spironolactone [Aldactone] 25 mg PO QDAY 03/10/21 03/10/21 Unknown History Thiamine HCl [Vitamin B-1] 100 mg PO DAILY 03/10/21 03/10/21 Unknown History Torsemide [Demadex] 20 mg PO DAILY 03/10/21 03/10/21 Unknown History amLODIPine [Norvasc] 10 mg PO DAILY 03/10/21 03/10/21 Unknown History carvediloL [Coreg] 12.5 mg PO BID 03/10/21 03/10/21 Unknown History hydroCHLOROthiazide [HCTZ] 25 mg PO QDAY 03/10/21 03/10/21 Unknown History lisinopriL [Zestril TAB] 40 mg PO QDAY 03/10/21 03/10/21 Unknown History Active Meds: Active Medications Acetaminophen (Acetaminophen 325 Mg Tab) 650 mg PO Q4H PRN PRN Reason: Pain MILD(1-3)/Fever >100.5/DOUGLAS Amlodipine Besylate (Amlodipine 10 Mg Tab) 10 mg PO DAILY [facility] Last Admin: 03/15/21 10:41 Dose: 10 mg Documented by: Aspirin (Aspirin 325 Mg Tab) 325 mg PO QDAY [facility] Last Admin: 03/15/21 10:41 Dose: 325 mg Documented by: Atorvastatin Calcium (Atorvastatin 40 Mg Tab) 40 mg PO QHS [facility] Last Admin: 03/14/21 21:27 Dose: 40 mg Documented by: Bisacodyl (Bisacodyl 10 Mg Rect Supp) 10 mg OR QDAY PRN PRN Reason: Constipation Budesonide (Budesonide 0.5 Mg/2 Ml Nebu) 0.5 mg IH Q12HRT [facility] Last Admin: 03/15/21 09:27 Dose: 0.5 mg Documented by: Carvedilol (Carvedilol 12.5 Mg Tab) 12.5 mg PO BID [facility] Last Admin: 03/15/21 10:41 Dose: 12.5 mg Documented by: Ergocalciferol (Ergocalciferol (Vit D2) 50,000 Unit Cap) 50,000 unit PO [facility] Folic Acid (Folic Acid 1 Mg Tab) 1 mg PO QDAY [facility] Last Admin: 03/15/21 10:41 Dose: 1 mg Documented by: Heparin Sodium (Porcine) (Heparin 5,000 Unit/1 Ml Vial) 5,000 unit SUB-Q Q8HR [facility] Last Admin: 03/15/21 06:07 Dose: 5,000 unit Documented by: Hydralazine HCl (Hydralazine 20 Mg/1 Ml Inj) 10 mg IV Q4HR PRN PRN Reason: Blood Pressure Last Admin: 03/12/21 23:29 Dose: 10 mg Documented by: Magnesium Hydroxide (Magnesium Hydroxide (Mom) Oral Liqd Udc) 30 ml PO Q4H PRN PRN Reason: Constipation Meclizine HCl (Meclizine 25 Mg Tab) 25 mg PO Q8H PRN PRN Reason: Vertigo Metoclopramide HCl (Metoclopramide 10 Mg Tab) 10 mg PO Q6H PRN PRN Reason: Nausea And Vomiting Morphine Sulfate (Morphine 2 Mg/1 Ml Inj) 2 mg IV Q4H PRN PRN Reason: Pain, Moderate (4-6) Morphine Sulfate (Morphine 4 Mg/1 Ml Inj) 4 mg IV Q4H PRN PRN Reason: Pain , Severe (7-10) Ondansetron HCl (Ondansetron 4 Mg/2 Ml Inj) 4 mg IV Q8H PRN PRN Reason: Nausea And Vomiting Last Admin: 03/13/21 09:21 Dose: 4 mg Documented by: Promethazine HCl (Promethazine 25 Mg Rect Supp) 25 mg OR Q6H PRN PRN Reason: Nausea And Vomiting Sodium Chloride (Sodium Chloride 0.9% 10 Ml Flush Syringe) 10 ml IV BID [facility] Last Admin: 03/15/21 10:41 Dose: 10 ml Documented by: Sodium Chloride (Sodium Chloride 0.9% 10 Ml Flush Syringe) 10 ml IV PRN PRN PRN Reason: LINE FLUSH Thiamine HCl (Thiamine 100 Mg Tab) 100 mg PO QDAY [facility] Last Admin: 03/15/21 10:41 Dose: 100 mg Documented by: Review of Systems Constitutional: weakness, no weight loss, no weight gain, no fever, no chills, no sweats, no anorexia, no fatigue, no malaise, no lethargy Ears, nose, mouth and throat: no ear pain, no ear discharge, no tinnitis, no decreased hearing, no nose pain, no nasal congestion, no nasal discharge, no sinus pressure Cardiovascular: no chest pain, no orthopnea, no palpitations, no rapid/irregular heart beat, no edema, no syncope, no lightheadedness, no shortness of breath Respiratory: no cough, no cough with sputum, no excessive sputum, no hemoptysis, no shortness of breath, no dyspnea on exertion Gastrointestinal: no abdominal pain, no nausea, no vomiting, no diarrhea, no constipation, no change in bowel habits Genitourinary Male: no hematuria, no flank pain, no discharge, no urinary hesitancy, no nocturia, no incontinence Rectal: no pain, no incontinence, no bleeding, no itching, no hemorrhoids Musculoskeletal: no neck stiffness, no neck pain, no shooting arm pain, no arm numbness/tingling, no low back pain, no shooting leg pain, no leg numbness/tingl ing Integumentary: no rash, no pruritis, no redness, no sores, no wounds, no jaundice, no boils Neurological: weakness, lack of coordination, no transient paralysis, no paralysis, no parathesias, no numbness, no tingling, no seizures, no syncope, no tremors, no ataxia Psychiatric: no anxiety, no memory loss, no change in sleep habits, no sleep disturbances, no insomnia, no hypersomnia, no change in appetite, no change in libido, no suicidal ideation, no disorientation Endocrine: no cold intolerance, no heat intolerance, no polyphagia, no excessive thirst, no polydipsia, no polyuria, no nocturia, no excessive sweating Hematologic/Lymphatic: no easy bruising, no easy bleeding, no lymphadenopathy, no lymphedema Exam - Vital Signs Vital signs: Vital Signs Temp Pulse Resp BP Pulse Ox 98.2 F 109 H 18 183/86 97 03/09/21 17:13 03/09/21 17:13 03/09/21 17:13 03/09/21 17:13 03/09/21 17:13 - General Appearance General appearance: well-developed, appears stated age EENT: ATNC, PERRL, hearing intact Neck: Present: neck supple Respiratory: Decreased Breath Sounds Heart: S1S2 Gastrointestinal: Present: normoactive bowel sounds Integumentary: warm and dry Neurologic: alert and oriented x3 Musculoskeletal: Present: other (No edema) Psychiatric: cooperative Results - Lab Results 03/12/21 04:40 03/15/21 05:06 Most recent lab results Calcium 8.1 mg/dL (8.4-10.2) L 03/15/21 05:06 Magnesium 2.00 mg/dL (1.7-2.3) 03/09/21 18:06 Assessment and Plan Assessment: Acute Renal Failure Hypertension CHF, Compensated Troponin Elevation Vertigo Dementia Plan: Renal labs reviewed. Serum creatinine 2.7 today, was 1.12 on admission. Baseline serum creatinine unknown Obtain renal ultrasound to r/o obstruction Obtain urine lytes, protein and eosinophils Was on HCTZ, Lisinopril, Spironolactone and Torsemide, now held Strict I/O's daily Avoid nephrotoxic agents Renally dose medications Monitor renal function closely Plan of care reviewed by Dr. Lieberman
--- NOTE | 2021-03-15 13:24 | Progress Note ---
Assessment and Plan Assessment and plan: Hypertensive Urgency. BP now stable Unsteady gait Orthostatic vertigo Chronic heart failure with preserved EF. Hyperlipidemia Elevated troponin Acute kidney injury. DVT prophylaxis 03/10/2021. Follow-up MRI and echocardiogram. CT of head negative. Neurology consultation pending. PT/OT. Cardiology consultation for elevated troponin. Continue antihypertensive medications. 03/11/2021. MRI and CTA of neck reveals no acute findings. CT of the head reveals atherosclerotic disease along the M1 segment of left middle cerebral artery and at the P1 segment of the right posterior cerebral artery. Follow-up echocardiogram and speech evaluation. We will start a trial of meclizine for vertigo. Cardiology suspects that the troponin elevation is related to accelerated hypertension 03/12/2021. Echocardiogram reveals left ventricle with normal size and systolic function also normal. EF is 55 to 60%. Moderate concentric left ventricular hypertrophy. Physical therapy recommends CHASTITY. Speech therapy recommends regular diet with thin liquids. Await placement. 03/13/2021. Await placement. Continue aspirin and Lipitor. Continue medications for blood pressure control. 03/14/2021. Await placement. Continue aspirin and Lipitor. Continue medications for blood pressure control. Patient with increase in creatinine. Recheck BMP today. Consider renal ultrasound. Patient is currently with Demadex, spironolactone and lisinopril. 03/15/2021 Patient with hypertensive urgency, HEIDE. He initially presented with elevated BP, dizziness, lightheadedness. He was thought to have had a stroke but MRI Brain negative. Will re-consult Neurology, Dr. Galindo to re-evaluate. His family enquiring about stroke diagnosis. I discussed case with Dr. Galindo. Also he has HEIDE. Consult Nephrology. He denies any previous history of Renal Failure. History Interval history: Patient initially presented with elevated BP, dizziness, lightheadedness Hospitalist Physical - Physical exam Narrative exam: Gen: Not in acute distress, lying in bed HEENT: Normocephalic, atraumatic Neck:supple, Lungs: Clear to auscultation bilaterally, no wheee Heart: S1 and S2 reg, no murmurs, rubs or gallop Abd:soft, non-tender, non distended, normal bowel sounds Ext: No edema, clubbing or cyanosis Neuro: Awake, alert - Constitutional Vitals: Temp Pulse Resp BP Pulse Ox 98.6 F 60 18 123/63 99 03/15/21 11:54 03/15/21 11:54 03/15/21 11:54 03/15/21 11:54 03/15/21 11:54 General appearance: Present: no acute distress HEART Score - HEART Score Troponin: Troponin T 0.058 ng/mL (0.00-0.029) H 03/10/21 00:24 Results - Labs CBC & Chem 7: 03/12/21 04:40 03/15/21 05:06 Labs: Laboratory Last Values WBC 11.6 K/mm3 (4.5-11.0) H 03/12/21 04:40 RBC 2.98 M/mm3 (3.65-5.03) L 03/12/21 04:40 Hgb 9.4 gm/dl (11.8-15.2) L 03/12/21 04:40 Hct 26.5 % (35.5-45.6) L 03/12/21 04:40 MCV 89 fl (84-94) 03/12/21 04:40 MCH 32 pg (28-32) 03/12/21 04:40 MCHC 36 % (32-34) H 03/12/21 04:40 RDW 14.7 % (13.2-15.2) 03/12/21 04:40 Plt Count 197 K/mm3 (140-440) 03/12/21 04:40 Lymph % (Auto) 27.2 % (13.4-35.0) 03/12/21 04:40 [place] % (Auto) 11.1 % (0.0-7.3) H 03/12/21 04:40 Eos % (Auto) 3.3 % (0.0-4.3) 03/12/21 04:40 Baso % (Auto) 0.2 % (0.0-1.8) 03/12/21 04:40 Lymph # (Auto) 3.2 K/mm3 (1.2-5.4) 03/12/21 04:40 [place] # (Auto) 1.3 K/mm3 (0.0-0.8) H 03/12/21 04:40 Eos # (Auto) 0.4 K/mm3 (0.0-0.4) 03/12/21 04:40 Baso # (Auto) 0.0 K/mm3 (0.0-0.1) 03/12/21 04:40 Seg Neutrophils % 58.2 % (40.0-70.0) 03/12/21 04:40 Seg Neutrophils # 6.8 K/mm3 (1.8-7.7) 03/12/21 04:40 Sodium 137 mmol/L (137-145) 03/15/21 05:06 Potassium 3.9 mmol/L (3.6-5.0) 03/15/21 05:06 Chloride 98.8 mmol/L (98-107) 03/15/21 05:06 Carbon Dioxide 26 mmol/L (22-30) 03/15/21 05:06 Anion Gap 16 mmol/L 03/15/21 05:06 BUN 34 mg/dL (9-20) H 03/15/21 05:06 Creatinine 2.6 mg/dL (0.8-1.3) H 03/15/21 05:06 Estimated GFR 31 ml/min 03/15/21 05:06 BUN/Creatinine Ratio 13 % 03/15/21 05:06 Glucose 121 mg/dL (75-100) H 03/15/21 05:06 POC Glucose 168 mg/dL (70-105) H 03/14/21 17:04 Calcium 8.1 mg/dL (8.4-10.2) L 03/15/21 05:06 Magnesium 2.00 mg/dL (1.7-2.3) 03/09/21 18:06 Total Bilirubin 1.00 mg/dL (0.1-1.2) 03/09/21 18:06 AST 15 units/L (5-40) 03/09/21 18:06 ALT 9 units/L (7-56) 03/09/21 18:06 Alkaline Phosphatase 104 units/L (35-129) 03/09/21 18:06 Ammonia 27.0 umol/L (25-60) 03/09/21 18:06 Troponin T 0.058 ng/mL (0.00-0.029) H 03/10/21 00:24 Total Protein 6.9 g/dL (6.3-8.2) 03/09/21 18:06 Albumin 3.4 g/dL (3.9-5) L 03/09/21 18:06 Albumin/Globulin Ratio 1.0 % 03/09/21 18:06 Prealbumin 0.186 g/L (0.200-0.400) L 03/10/21 18:58 Triglycerides 115 mg/dL (2-149) 03/09/21 18:06 Cholesterol 138 mg/dL (50-199) 03/09/21 18:06 LDL Cholesterol Direct 76 mg/dL (50-130) 03/09/21 18:06 HDL Cholesterol 45 mg/dL (40-59) 03/09/21 18:06 Cholesterol/HDL Ratio 3.06 % 03/09/21 18:06 Vitamin B12 867.2 pg/mL (211-911) 03/10/21 18:58 Folate 19.96 ng/mL (7.3-26.0) 03/10/21 18:58 TSH 1.720 mlU/mL (0.270-4.200) 03/10/21 18:58 Urine Color Yellow (Yellow) 03/09/21 Unknown Urine Turbidity Clear (Clear) 03/09/21 Unknown Urine pH 5.0 (5.0-7.0) 03/09/21 Unknown Ur Specific [place] 1.008 (1.003-1.030) 03/09/21 Unknown Urine Protein >500 mg/dL (Negative) 03/09/21 Unknown Urine Glucose (UA) 50 mg/dL (Negative) 03/09/21 Unknown Urine Ketones Neg mg/dL (Negative) 03/09/21 Unknown Urine Blood Sm (Negative) 03/09/21 Unknown Urine Nitrite Neg (Negative) 03/09/21 Unknown Urine Bilirubin Neg (Negative) 03/09/21 Unknown Urine Urobilinogen < 2.0 mg/dL (<2.0) 03/09/21 Unknown Ur Leukocyte Esterase Neg (Negative) 03/09/21 Unknown Urine WBC (Auto) 1.0 /HPF (0.0-6.0) 03/09/21 Unknown Urine RBC (Auto) 2.0 /HPF (0.0-6.0) 03/09/21 Unknown U Epithel Cells (Auto) < 1.0 /HPF (0-13.0) 03/09/21 Unknown Syphilis IgG Antibody Nonreactive (NonReactive) 09/30/21 18:58 Coronavirus (PCR) Negative (Negative) 03/12/21 Unknown [place]/IV: Voiding Method Toilet Active Medications - Current Medications Current Medications: Generic Name Dose Route Start Last Admin Trade Name Freq PRN Reason Stop Dose Admin Acetaminophen 650 mg 03/09/21 23:53 Acetaminophen 325 Mg Tab PO Q4H PRN Pain MILD(1-3)/Fever >100.5/DOUGLAS Amlodipine Besylate 10 mg 03/12/21 11:00 03/15/21 10:41 Amlodipine 10 Mg Tab PO 10 mg DAILY ARMANDO Administration Aspirin 325 mg 03/10/21 10:00 03/15/21 10:41 Aspirin 325 Mg Tab PO 325 mg QDAY ARMANDO Administration Atorvastatin Calcium 40 mg 03/10/21 22:00 03/14/21 21:27 Atorvastatin 40 Mg Tab PO 40 mg QHS ARMANDO Administration Bisacodyl 10 mg 03/09/21 23:53 Bisacodyl 10 Mg Rect Supp [place] QDAY PRN Constipation Budesonide 0.5 mg 03/12/21 20:00 03/15/21 09:27 Budesonide 0.5 Mg/2 Ml Nebu IH 0.5 mg Q12HRT ARMANDO Administration Carvedilol 12.5 mg 03/14/21 10:00 03/15/21 10:41 Carvedilol 12.5 Mg Tab PO 12.5 mg BID ARMANDO Administration Ergocalciferol 50,000 unit 03/19/21 10:00 Ergocalciferol (Vit D2) 50,000 Unit Cap PO Sa ARMANDO Folic Acid 1 mg 03/12/21 11:00 03/15/21 10:41 Folic Acid 1 Mg Tab PO 1 mg QDAY ARMANDO Administration Heparin Sodium (Porcine) 5,000 unit 03/10/21 06:00 03/15/21 06:07 Heparin 5,000 Unit/1 Ml Vial SUB-Q 5,000 unit Q8HR ARMANDO Administration Hydralazine HCl 10 mg 03/09/21 23:58 03/12/21 23:29 Hydralazine 20 Mg/1 Ml Inj IV 10 mg Q4HR PRN Administration Blood Pressure Magnesium Hydroxide 30 ml 03/09/21 23:53 Magnesium Hydroxide (Mom) Oral Liqd Udc PO Q4H PRN Constipation Meclizine HCl 25 mg 03/11/21 10:00 Meclizine 25 Mg Tab PO Q8H PRN Vertigo Metoclopramide HCl 10 mg 03/09/21 23:53 Metoclopramide 10 Mg Tab PO Q6H PRN Nausea And Vomiting Morphine Sulfate 2 mg 03/09/21 23:53 Morphine 2 Mg/1 Ml Inj IV Q4H PRN Pain, Moderate (4-6) Morphine Sulfate 4 mg 03/09/21 23:53 Morphine 4 Mg/1 Ml Inj IV Q4H PRN Pain , Severe (7-10) Ondansetron HCl 4 mg 03/09/21 23:53 03/13/21 09:21 Ondansetron 4 Mg/2 Ml Inj IV 4 mg Q8H PRN Administration Nausea And Vomiting Promethazine HCl 25 mg 03/09/21 23:53 Promethazine 25 Mg Rect Supp [place] Q6H PRN Nausea And Vomiting Sodium Chloride 10 ml 03/10/21 10:00 03/15/21 10:41 Sodium Chloride 0.9% 10 Ml Flush Syringe IV 10 ml BID ARMANDO Administration Sodium Chloride 10 ml 03/09/21 23:53 Sodium Chloride 0.9% 10 Ml Flush Syringe IV PRN PRN LINE FLUSH Thiamine HCl 100 mg 03/12/21 11:00 03/15/21 10:41 Thiamine 100 Mg Tab PO 100 mg QDAY ARMANDO Administration Nutrition/Malnutrition Assess - Dietary Evaluation Nutrition/Malnutrition Findings: Nutrition Notes Start: 03/10/21 16:53 Freq: Status: Active Protocol: Document 03/10/21 16:53 GB (Rec: 03/10/21 17:00 GB [id number]) Nutrition Notes Need for Assessment generated from: MD Order Initial or Follow up Assessment Current Diagnosis Hypertension,Heart Failure Other Pertinent Diagnosis dementia Current Diet cardiac Labs/Tests 03/09: Na 136, K 3.5, BUN 21 Pertinent Medications KCl, NaCl Height 5 ft 7 in Weight 81.5 kg [place] Body Weight (kg) 67.27 BMI 28.1 Weight change and time frame no reported weight change Weight Status Overweight Subjective/Other Information Consult for diet education Percent of energy/protein needs met: PO intake of meals 75% or greater. Pt eating meal at time of consult. PO intake meets 100% estimated energy needs Burn Absent Trauma Absent GI Symptoms None Food Allergy No Skin Integrity/Comment no complications reported Current % PO Good (75-100%) Minimum of two criteria No #1 Nutrition Diagnosis Food and nutrition-related knowledge deficit Comments: Pt does have dementia Etiology CHF, HTN As Evidenced by Signs and Symptoms consult for nutrition education Is patient on ventilator? No Is Patient Ambulatory and/or Out of Bed Yes [facility] [ [id number]] Kcal/Kg value to use for calculation 25 Approximate Energy Requirements Using 2037 kcal/Kg Calculation Used for Recommendations Kcal/kg Additional Notes Protein: 0.8-1 g/kg @ 82k -82g Fluids: 1 ml/kcal or per MD Nutrition Intervention Change Diet Order: continue Nutrition Support: n/a Add Supplement/Snack (indicate name/kcal n/a /protein ) Teaching Recipient Patient Learning Readiness Good Teaching Methods Discussion,Handout Response to Teaching Verbalize understanding Education Handouts Provided Hypertension Nutrition Therapy by [facility] Nutrition Dietetics Barriers to Learning No Barriers Anticipated Discharge Needs: normal Revisit per MD consult or patient Sign Off request: Additional Comments Good PO, pt expressed understanding of salt intake management.
--- NOTE | 2021-03-15 13:51 | Consultation ---
History of Present Illness Consult date: 03/15/21 Reason for Consult: Dizziness History of present illness: Dizziness History of present illness: 55-year-old male with known history of hypertension , CHF and dementia presents to the emergency room today for by EMS from [facility] with a complaint of elevated blood pressure, dizziness and lightheadedness for about 5 days. Patient denies any headaches, no diaphoresis, no fever or chills, no chest pain or shortness of breath, no nausea vomiting and no abdominal pain. He denies any weakness, numbness or paresthesias. He states he just feels off balance. Work-up in the emergency room today, significant findings were that of elevated troponin of 0.056, mild leukocytosis of 12.5 and mild hypokalemia of 3.5. CT scan of the head did not show any acute findings. CT angiogram of the head and neck were unremarkable. Patient is being admitted for CVA evaluation. pt. is very bad historian , acccording to family he is still complainig of dizziness CT brain and MRI are unremarkable CTA brain is suggestive of intracranial stenosis. he is on ASA and lipitor Past History Past Medical History: hypertension, other (Dementia) Past Surgical History: denies: No surgical history Social history: denies: no significant social history Family history: denies: no significant family history Medications and Allergies Allergies Allergy/AdvReac Type Severity Reaction Status Date / Time No Known Allergies Allergy Verified 03/09/21 21:41 Active Meds: Active Medications Acetaminophen (Acetaminophen 325 Mg Tab) 650 mg PO Q4H PRN PRN Reason: Pain MILD(1-3)/Fever >100.5/DOUGLAS Aspirin (Aspirin 325 Mg Tab) 325 mg PO QDAY ARMANDO Atorvastatin Calcium (Atorvastatin 40 Mg Tab) 40 mg PO QHS ARMANDO Bisacodyl (Bisacodyl 10 Mg Rect Supp) 10 mg HI QDAY PRN PRN Reason: Constipation Hydralazine HCl (Hydralazine 20 Mg/1 Ml Inj) 10 mg IV Q4HR PRN PRN Reason: Blood Pressure Magnesium Hydroxide (Magnesium Hydroxide (Mom) Oral Liqd Udc) 30 ml PO Q4H PRN PRN Reason: Constipation Magnesium Hydroxide (Magnesium Hydroxide (Mom) Oral Liqd Udc) 30 ml PO Q4H PRN PRN Reason: Constipation Metoclopramide HCl (Metoclopramide 10 Mg Tab) 10 mg PO Q6H PRN PRN Reason: Nausea And Vomiting Morphine Sulfate (Morphine 2 Mg/1 Ml Inj) 2 mg IV Q4H PRN PRN Reason: Pain, Moderate (4-6) Morphine Sulfate (Morphine 4 Mg/1 Ml Inj) 4 mg IV Q4H PRN PRN Reason: Pain , Severe (7-10) Ondansetron HCl (Ondansetron 4 Mg/2 Ml Inj) 4 mg IV Q8H PRN PRN Reason: Nausea And Vomiting Ondansetron HCl (Ondansetron 4 Mg/2 Ml Inj) 4 mg IV Q8H PRN PRN Reason: Nausea And Vomiting Promethazine HCl (Promethazine 25 Mg Rect Supp) 25 mg HI Q6H PRN PRN Reason: Nausea And Vomiting Sodium Chloride (Sodium Chloride 0.9% 10 Ml Flush Syringe) 10 ml IV BID ARMANDO Sodium Chloride (Sodium Chloride 0.9% 10 Ml Flush Syringe) 10 ml IV PRN PRN PRN Reason: LINE FLUSH Sodium Chloride (Sodium Chloride 0.9% 10 Ml Flush Syringe) 10 ml INJ PRN PRN PRN Reason: LINE FLUSH Review of Systems Constitutional: no fever, no chills Ears, nose, mouth and throat: no nasal congestion, no sore throat Cardiovascular: no chest pain, no palpitations Respiratory: no cough, no shortness of breath Gastrointestinal: no abdominal pain, no nausea, no vomiting, no diarrhea Genitourinary Male: no dysuria, no hematuria, no flank pain Musculoskeletal: no neck pain, no low back pain Integumentary: no rash, no pruritis Neurological: balance difficulties, other (Dizziness), no headaches Psychiatric: no anxiety, no depression Endocrine: no polyphagia, no polydipsia, no polyuria, no nocturia Past History Past Medical History: heart failure, hypertension, other (dementia, paranoid personality disorder) Past Surgical History: denies: CABG, PTCA Social history: denies: smoking, alcohol abuse Family history: no significant family history Medications and Allergies Allergies Allergy/AdvReac Type Severity Reaction Status Date / Time No Known Allergies Allergy Verified 03/09/21 21:41 Home Medications Medication Instructions Recorded Confirmed Last Taken Type AtorvaSTATin [Lipitor] 40 mg PO HS 03/10/21 03/10/21 Unknown History Cholecalciferol (Vitamin D3) 50,000 unit PO QWEEK 03/10/21 03/10/21 Unknown History [Vitamin D3 50,000UNIT CAP] Fluticasone Propionate [Flovent 50 mcg IH DAILY 03/10/21 03/10/21 Unknown History Diskus] Folic Acid [Folvite] 1 mg PO QDAY 03/10/21 03/10/21 Unknown History LORazepam [Ativan] 1 mg PO Q6H 03/10/21 03/10/21 Unknown History Spironolactone [Aldactone] 25 mg PO QDAY 03/10/21 03/10/21 Unknown History Thiamine HCl [Vitamin B-1] 100 mg PO DAILY 03/10/21 03/10/21 Unknown History Torsemide [Demadex] 20 mg PO DAILY 03/10/21 03/10/21 Unknown History amLODIPine [Norvasc] 10 mg PO DAILY 03/10/21 03/10/21 Unknown History carvediloL [Coreg] 12.5 mg PO BID 03/10/21 03/10/21 Unknown History hydroCHLOROthiazide [HCTZ] 25 mg PO QDAY 03/10/21 03/10/21 Unknown History lisinopriL [Zestril TAB] 40 mg PO QDAY 03/10/21 03/10/21 Unknown History Active Meds: Active Medications Acetaminophen (Acetaminophen 325 Mg Tab) 650 mg PO Q4H PRN PRN Reason: Pain MILD(1-3)/Fever >100.5/DOUGLAS Amlodipine Besylate (Amlodipine 10 Mg Tab) 10 mg PO DAILY [facility] Last Admin: 03/15/21 10:41 Dose: 10 mg Documented by: Aspirin (Aspirin 325 Mg Tab) 325 mg PO QDAY [facility] Last Admin: 03/15/21 10:41 Dose: 325 mg Documented by: Atorvastatin Calcium (Atorvastatin 40 Mg Tab) 40 mg PO QHS [facility] Last Admin: 03/14/21 21:27 Dose: 40 mg Documented by: Bisacodyl (Bisacodyl 10 Mg Rect Supp) 10 mg HI QDAY PRN PRN Reason: Constipation Budesonide (Budesonide 0.5 Mg/2 Ml Nebu) 0.5 mg IH Q12HRT [facility] Last Admin: 03/15/21 09:27 Dose: 0.5 mg Documented by: Carvedilol (Carvedilol 12.5 Mg Tab) 12.5 mg PO BID [facility] Last Admin: 03/15/21 10:41 Dose: 12.5 mg Documented by: Ergocalciferol (Ergocalciferol (Vit D2) 50,000 Unit Cap) 50,000 unit PO Sa [facility] Folic Acid (Folic Acid 1 Mg Tab) 1 mg PO QDAY [facility] Last Admin: 03/15/21 10:41 Dose: 1 mg Documented by: Heparin Sodium (Porcine) (Heparin 5,000 Unit/1 Ml Vial) 5,000 unit SUB-Q Q8HR [facility] Last Admin: 03/15/21 06:07 Dose: 5,000 unit Documented by: Hydralazine HCl (Hydralazine 20 Mg/1 Ml Inj) 10 mg IV Q4HR PRN PRN Reason: Blood Pressure Last Admin: 03/12/21 23:29 Dose: 10 mg Documented by: Magnesium Hydroxide (Magnesium Hydroxide (Mom) Oral Liqd Udc) 30 ml PO Q4H PRN PRN Reason: Constipation Meclizine HCl (Meclizine 25 Mg Tab) 25 mg PO Q8H PRN PRN Reason: Vertigo Metoclopramide HCl (Metoclopramide 10 Mg Tab) 10 mg PO Q6H PRN PRN Reason: Nausea And Vomiting Morphine Sulfate (Morphine 2 Mg/1 Ml Inj) 2 mg IV Q4H PRN PRN Reason: Pain, Moderate (4-6) Morphine Sulfate (Morphine 4 Mg/1 Ml Inj) 4 mg IV Q4H PRN PRN Reason: Pain , Severe (7-10) Ondansetron HCl (Ondansetron 4 Mg/2 Ml Inj) 4 mg IV Q8H PRN PRN Reason: Nausea And Vomiting Last Admin: 03/13/21 09:21 Dose: 4 mg Documented by: Promethazine HCl (Promethazine 25 Mg Rect Supp) 25 mg HI Q6H PRN PRN Reason: Nausea And Vomiting Sodium Chloride (Sodium Chloride 0.9% 10 Ml Flush Syringe) 10 ml IV BID [facility] Last Admin: 03/15/21 10:41 Dose: 10 ml Documented by: Sodium Chloride (Sodium Chloride 0.9% 10 Ml Flush Syringe) 10 ml IV PRN PRN PRN Reason: LINE FLUSH Thiamine HCl (Thiamine 100 Mg Tab) 100 mg PO QDAY [facility] Last Admin: 03/15/21 10:41 Dose: 100 mg Documented by: Physical Examination - Vital Signs Vital Signs: Vital Signs Temp Pulse Resp BP Pulse Ox 98.2 F 109 H 18 183/86 97 03/09/21 17:13 03/09/21 17:13 03/09/21 17:13 03/09/21 17:13 03/09/21 17:13 - Constitutional General appearance: comfortable - EENT EENT: Present: ATNC, PERRL, mucous membranes moist - Respiratory Respiratory: Present: chest non-tender, lungs clear, rhonchi - Cardiovascular Cardiovascular: Present: regular rate, normal S1, normal S2 Extremities: Present: no peripheral edema bilatateraly, no clubbing, cyanosis - Gastrointestinal Gastrointestinal: Present: normoactive bowel sounds - Integumentary Integumentary: Present: normal - Neurologic Cranial nerve examination: PERRL, facial droop, other (EOM is deviated with difficulty in right side and or possible diplopia) Speech examination: intact Detailed motor examination: other (right side upper droop and dysmetia in right upper extremity) - Level of Consciousness 1a. Level of Consciousness: alert/keenly responsive - LOC Questions 1b. LOC Questions: answers 1 question correctly - LOC Command 1c. LOC Commands: performs tasks correctly - Best Gaze 2. Best Gaze: partial gaze palsy - Visual 3. Visual: no visual loss - Facial Palsy 4. Facial Palsy: minor paralysis - Motor Arm 5a. Motor Arm Left: no drift 5b. Motor Arm Right: drift - Motor Leg 6a. Motor Leg Left: no drift 6b. Motor Leg Right: no drift - Limb Ataxia 7. Limb Ataxia: present 1 limb - Sensory 8. Sensory: normal - Best Language 9. Best Language: no aphasia - Dysarthria 10. Dysarthria: normal - Extinction and Inattention 11. Extinction/Inattention: no abnormality - Scoring Total Score: 5 Stroke Severity: Moderate Stroke Results - Laboratory Findings CBC and BMP: 03/12/21 04:40 03/15/21 05:06 Abnormal Lab Findings: Abnormal Labs 03/09/21 03/09/21 03/10/21 18:06 18:06 00:24 WBC 12.5 H RBC 3.64 L Hgb 11.3 L Hct 32.3 L MCHC 35 H [place] % (Auto) 9.4 H [place] # (Auto) 1.2 H Sodium 136 L Potassium 3.5 L Chloride 97.1 L Carbon Dioxide BUN 21 H Creatinine Glucose 149 H POC Glucose Calcium Troponin T 0.056 H 0.058 H Albumin 3.4 L Prealbumin 03/10/21 03/11/21 03/11/21 18:58 08:24 17:14 WBC RBC Hgb Hct MCHC [place] % (Auto) [place] # (Auto) Sodium Potassium Chloride Carbon Dioxide BUN Creatinine Glucose POC Glucose 165 H 181 H Calcium Troponin T Albumin Prealbumin 0.186 L 03/11/21 03/12/21 03/12/21 22:08 04:40 04:40 WBC 11.6 H RBC 2.98 L Hgb 9.4 L Hct 26.5 L MCHC 36 H [place] % (Auto) 11.1 H [place] # (Auto) 1.3 H Sodium Potassium Chloride Carbon Dioxide 21 L D BUN 27 H Creatinine 2.7 H D Glucose 141 H POC Glucose 167 H Calcium 7.6 L Troponin T Albumin Prealbumin 03/12/21 03/12/21 03/13/21 07:55 15:43 08:08 WBC RBC Hgb Hct MCHC [place] % (Auto) [place] # (Auto) Sodium Potassium Chloride Carbon Dioxide BUN Creatinine Glucose POC Glucose 127 H 167 H 119 H Calcium Troponin T Albumin Prealbumin 03/13/21 03/13/21 03/14/21 11:42 16:12 08:08 WBC RBC Hgb Hct MCHC [place] % (Auto) [place] # (Auto) Sodium Potassium Chloride Carbon Dioxide BUN Creatinine Glucose POC Glucose 111 H 107 H 107 H Calcium Troponin T Albumin Prealbumin 03/14/21 03/14/21 03/14/21 10:26 12:42 17:04 WBC RBC Hgb Hct MCHC [place] % (Auto) [place] # (Auto) Sodium Potassium Chloride Carbon Dioxide BUN 31 H Creatinine 2.8 H Glucose 142 H POC Glucose 166 H 168 H Calcium 8.3 L Troponin T Albumin Prealbumin 03/15/21 05:06 WBC RBC Hgb Hct MCHC [place] % (Auto) [place] # (Auto) Sodium Potassium Chloride Carbon Dioxide BUN 34 H Creatinine 2.6 H Glucose 121 H POC Glucose Calcium 8.1 L Troponin T Albumin Prealbumin Assessment and Plan Assessment and Plan Assessment and plan: #Acute CVA with right-sided weakness -Unsteady gait -exam is remarkable for dysmetria and right pronator drift R/O brain stem i nfarct -CT brain and MRI are unremarkable CTA brain is remarkable for intracranial stenosis -astherosclerotic changest #Accelerated hypertension # Underlying dementia -Multi infarct vs alzheimer? #Chronic heart failure with preserved EF55-60%. Compensated. #Hyperlipidemia LDL# 76 #Elevated troponin #Acute kidney injury. #DVT prophylaxis PLAN 1- Repeat MRI brain r/o brain stem infarct 2- Maintain ASA and lipitor 3- PT therapy to see will follow
--- NOTE | 2021-03-15 13:56 | Progress Note ---
Assessment and Plan Gait Dysfunction // ?Vertigo / Ischemic stroke? * Neuro following * May trial Meclizine if sx persist Chronic HFpEF(compensated) * Currently on Torsemide 20mg daily * Echo 03/09/2021-EF 55 to 60%, moderate concentric left ventricular hypertrophy, mild diastolic dysfunction impaired relaxation pattern right ventricular s ystolic function is normal, left atrium is mildly dilated, right atrium normal in size bubble study did not demonstrate PFO Accelerated HTN * Outpatient regimen: Amlodipine 10mg daily, Coreg 12.5mg BID, Aldactone 25mg daily, HCTZ 25mg daily, & Lisinopril 40mg daily HEIDE * Creatinine 1.1->2.8 * Nephrology following Non-[place] Troponin Elevation * EKG shows normal sinus rhythm with no acute ischemic changes. AMI ruled out * Pt denies chest pain * Troponins minimally elevated likely elevated in the setting of accelerated HTN HLD * Continue Atorvastatin 40mg daily once Dementia * Paranoid Personality Disorder * Mgmt per Primary Plan: Repeat ekg shows normal sinus rhythm with no ST depression. In setting of HEIDE will continue to hold torsemide and lisinopril. Will continue to follow Pt seen in conjunction with Dr. Bejarano, who agrees with the assessment and plan of care. - Patient Problems (1) Accelerated hypertension Current Visit: Yes Status: Acute (2) Dysequilibrium Current Visit: Yes Status: Acute (3) Elevated troponin Current Visit: Yes Status: Acute (4) Hypertensive urgency Current Visit: Yes Status: Acute (5) Leukocytosis Current Visit: Yes Status: Acute (6) Chronic heart failure with preserved ejection fraction (HFpEF) Current Visit: Yes Status: Chronic (7) Dementia Current Visit: Yes Status: Chronic (8) HLD (hyperlipidemia) Current Visit: Yes Status: Chronic Qualifiers: Hyperlipidemia type: mixed hyperlipidemia Qualified Code(s): E78.2 - Mixed hyperlipidemia (9) Paranoid personality disorder Current Visit: Yes Status: Chronic (10) Vertigo Current Visit: Yes Status: Suspected Subjective Date of service: 03/15/21 Principal diagnosis: vertigo/weakness Interval history: Patient lying in bed and reports feeling much better sinus 60s with no events on monitor Objective Vital Signs Temp Pulse Pulse Resp Resp BP Pulse Ox 03/15/21 11:54 98.6 F 60 18 123/63 99 03/15/21 09:44 65 18 03/15/21 08:44 61 11 L 144/65 98 03/15/21 08:03 61 100 03/15/21 03:30 98.4 F 61 18 137/63 97 03/14/21 23:18 98.0 F 61 18 111/51 98 03/14/21 21:00 18 98 03/14/21 19:20 98.2 F 64 18 148/60 97 - Physical Examination General: No Apparent Distress HEENT: Positive: EOMI, Normocephaly, Mucus Membranes Moist Neck: Positive: neck supple Cardiac: Positive: Reg Rate and Rhythm Neuro: Positive: Grossly Intact Abdomen: Positive: Soft. Negative: Tender Skin: Negative: Rash Musculoskeletal: No Pain Extremities: Present: upper extr. pulses, lower extr. pulses. Absent: edema - Labs and Meds Comprehensive Metabolic Panel 03/15/21 Range/Units 05:06 Sodium 137 (137-145) mmol/L Potassium 3.9 (3.6-5.0) mmol/L Chloride 98.8 (98-107) mmol/L Carbon Dioxide 26 (22-30) mmol/L BUN 34 H (9-20) mg/dL Creatinine 2.6 H (0.8-1.3) mg/dL Glucose 121 H (75-100) mg/dL Calcium 8.1 L (8.4-10.2) mg/dL - Imaging and Cardiology EKG: report reviewed, image reviewed Echo: report reviewed - Telemetry EKG Rhythm: Sinus Rhythm - EKG Sinus rhythms and dysrhythmias: sinus rhythm
[2021-03-15] MEDS ORDERED: SODIUM CHLORIDE 0.9% 1000 ML 1,000 ML IV SCH (15:30)
--- NOTE | 2021-03-15 15:36 | Event Note ---
Date: 03/15/21 Spoke to brother, Rhett Vasquez and gave update.
--- NOTE | 2021-03-15 18:17 | Ultrasound Report ---
US renal BILAT INDICATION / CLINICAL INFORMATION: renal failure. COMPARISON: None available. FINDINGS: RIGHT KIDNEY: Size = 12.3 cm. - Echogenicity: Normal. - Cortical thickness: Normal. - Hydronephrosis: None. - Cyst or mass: 1.5cm right mid pole simple appearing cyst. - Stones: None seen.. LEFT KIDNEY: Size = 12.5 cm. - Echogenicity: Normal. - Cortical thickness: Normal. - Hydronephrosis: None. - Cyst or mass: 8mm simple appearing cyst. - Stones: 5mm echogenic focus likely a nonobstructing calculus.. URINARY BLADDER: No significant abnormality. FREE FLUID: None. ADDITIONAL FINDINGS: None. IMPRESSION 1. 5 mm nonobstructing left renal stone. No significant sonographic abnormality of the kidneys. Signer Name: Eron Crow MD Signed: 03/15/2021 6:12 PM Workstation Name: [id number]
[2021-03-16 06:18] LABS: Hematocrit 27.2 % (35.5-45.6); Hemoglobin 9.3 gm/dl (11.8-15.2); Mean Corpuscular HGB Conc 34 % (32-34); Mean Corpuscular Volume 90 fl (84-94); Platelet Count 186 K/mm3 (140-440); Red Blood Count 3.03 M/mm3 (3.65-5.03); Red Cell Distribution Width 14.7 % (13.2-15.2)
[2021-03-16] MEDS: HEPARIN 5,000 UNIT/1 ML VIAL SUB-Q SCH ×3 (07:02→22:53)
[2021-03-16] MEDS: BUDESONIDE 0.5 MG/2 ML NEBU IH SCH ×2 (08:00→20:23)
[2021-03-16] MEDS: amLODIPine 10 MG TAB PO SCH (10:58)
[2021-03-16] MEDS: THIAMINE 100 MG TAB PO SCH (10:58)
[2021-03-16] MEDS: ASPIRIN 325 MG TAB PO SCH (10:58)
[2021-03-16] MEDS: carvediloL 12.5 MG TAB PO SCH ×2 (10:58→22:52)
[2021-03-16] MEDS: FOLIC ACID 1 MG TAB PO SCH (10:58)
--- NOTE | 2021-03-16 11:47 | Electrocardiograph Report ---
[facility] Test Date: 2021-03-15 Test Time: 10:48:45 Pat Name: MARIANNE ANGUIANO Department: Room: A467 1 Gender: M Pre Planning Advisor: ADÁN : 1965 Requested By: YANN ORTEGA Order Number: [id number] Reading MD: Yann Ortega Measurements Intervals [place] Rate: 59 P: 60 SC: 159 QRS: 67 QRSD: 103 T: 91 QT: 425 QTc: 422 Interpretive Statements Sinus rhythm Nonspecific T abnormalities, lateral leads Compared to ECG 03/10/2021 12:25:04 T-wave abnormality now present Intraventricular conduction delay no longer present Possible ischemia no longer present Electronically Signed On 03-16-2021 11:47:21 EDT by Yann Ortega
--- NOTE | 2021-03-16 12:05 | Progress Note ---
Assessment and Plan Assessment and Plan Assessment and plan: #Acute CVA with right-sided weakness -Unsteady gait -exam is remarkable for dysmetria and right pronator drift R/O brain stem infarct -CT brain and MRI are unremarkable CTA brain is remarkable for intracranial stenosis -astherosclerotic changest #Accelerated hypertension # Underlying dementia -Multi infarct vs alzheimer? #Chronic heart failure with preserved EF55-60%. Compensated. #Hyperlipidemia LDL# 76 #Elevated troponin #Acute kidney injury. #DVT prophylaxis PLAN 1- Repeat MRI brain r/o brain stem infarct stil pending 2- Maintain ASA and lipitor 3- PT therapy to see will follow Subjective Date of service: 03/16/21 Principal diagnosis: vertigo/weakness Interval history: status is unchanged he is with right side weakness and dysmetria right side repeat MRI not done he is more alert interactive today Pt therapy is pending??? Objective - Vital Sign Vital Signs - 12hr 03/16/21 03/16/21 03/16/21 02:51 08:22 11:14 Temperature 99.0 F 97.6 F Pulse Rate 57 L 57 L Respiratory 18 18 Rate Blood Pressure 119/54 142/70 O2 Sat by Pulse 98 98 Oximetry - General Apperance Constitutional: comfortable - EENT EENT: PERRL, mucous membranes moist - Respiratory Respiratory: chest non-tender, lungs clear, rhonchi - Cardiovascular Cardiovascular: regular rate, normal S1, normal S2 Extremities: no peripheral edema bilat, no clubbing, cyanosis - Gastrointestinal Gastrointestinal: normoactive bowel sounds - Integumentary Integumentary: normal - Neurologic Cranial nerve examination: PERRL, EOMI, other (slight right lat. lazy eye ? diplopia) Detailed motor examination: other (right pronator drift and dysmetria right upper ,gait not done..) - Laboratory Findings CBC and BMP: 03/16/21 04:19 03/16/21 04:19 Abnormal Lab Findings: Abnormal Labs 03/09/21 03/09/21 03/10/21 18:06 18:06 00:24 WBC 12.5 H RBC 3.64 L Hgb 11.3 L Hct 32.3 L MCHC 35 H [place] % (Auto) 9.4 H [place] # (Auto) 1.2 H Sodium 136 L Potassium 3.5 L Chloride 97.1 L Carbon Dioxide BUN 21 H Creatinine Glucose 149 H POC Glucose Calcium Troponin T 0.056 H 0.058 H Albumin 3.4 L Prealbumin 03/10/21 03/11/21 03/11/21 18:58 08:24 17:14 WBC RBC Hgb Hct MCHC [place] % (Auto) [place] # (Auto) Sodium Potassium Chloride Carbon Dioxide BUN Creatinine Glucose POC Glucose 165 H 181 H Calcium Troponin T Albumin Prealbumin 0.186 L 03/11/21 03/12/21 03/12/21 22:08 04:40 04:40 WBC 11.6 H RBC 2.98 L Hgb 9.4 L Hct 26.5 L MCHC 36 H [place] % (Auto) 11.1 H [place] # (Auto) 1.3 H Sodium Potassium Chloride Carbon Dioxide 21 L D BUN 27 H Creatinine 2.7 H D Glucose 141 H POC Glucose 167 H Calcium 7.6 L Troponin T Albumin Prealbumin 03/12/21 03/12/21 03/13/21 07:55 15:43 08:08 WBC RBC Hgb Hct MCHC [place] % (Auto) [place] # (Auto) Sodium Potassium Chloride Carbon Dioxide BUN Creatinine Glucose POC Glucose 127 H 167 H 119 H Calcium Troponin T Albumin Prealbumin 03/13/21 03/13/21 03/14/21 11:42 16:12 08:08 WBC RBC Hgb Hct MCHC [place] % (Auto) [place] # (Auto) Sodium Potassium Chloride Carbon Dioxide BUN Creatinine Glucose POC Glucose 111 H 107 H 107 H Calcium Troponin T Albumin Prealbumin 03/14/21 03/14/21 03/14/21 10:26 12:42 17:04 WBC RBC Hgb Hct MCHC [place] % (Auto) [place] # (Auto) Sodium Potassium Chloride Carbon Dioxide BUN 31 H Creatinine 2.8 H Glucose 142 H POC Glucose 166 H 168 H Calcium 8.3 L Troponin T Albumin Prealbumin 03/15/21 03/16/21 03/16/21 05:06 04:19 04:19 WBC RBC 3.03 L Hgb 9.3 L Hct 27.2 L MCHC [place] % (Auto) [place] # (Auto) Sodium Potassium Chloride Carbon Dioxide BUN 34 H 38 H Creatinine 2.6 H 2.4 H Glucose 121 H 133 H POC Glucose Calcium 8.1 L 8.0 L Troponin T Albumin Prealbumin
--- NOTE | 2021-03-16 12:43 | Progress Note ---
Assessment and Plan Gait Dysfunction // ?Vertigo / Ischemic stroke? * Neuro following * Repeat MRI pending Chronic HFpEF(compensated) * Previously on Torsemide 20mg daily * Echo 03/09/2021-EF 55 to 60%, moderate concentric left ventricular hypertrophy, mild diastolic dysfunction impaired relaxation pattern right ventricular systolic function is normal, left atrium is mildly dilated, right atrium normal in size bubble study did not demonstrate PFO Accelerated HTN * Outpatient regimen: Amlodipine 10mg daily, Coreg 12.5mg BID, Aldactone 25mg daily, HCTZ 25mg daily, & Lisinopril 40mg daily HEIDE * Creatinine 1.1->2.8 * Nephrology following Non-AL Troponin Elevation * EKG shows normal sinus rhythm with no acute ischemic changes. AMI ruled out * Pt denies chest pain * Troponins minimally elevated likely elevated in the setting of accelerated HTN HLD * Continue Atorvastatin 40mg daily once Dementia * Paranoid Personality Disorder * Mgmt per Primary Plan: In setting of HEIDE will continue to hold torsemide and lisinopril. Will continue to follow Pt seen in conjunction with Dr. Ambrose, who agrees with the assessment and plan of care. - Patient Problems (1) Accelerated hypertension Current Visit: Yes Status: Acute (2) Dysequilibrium Current Visit: Yes Status: Acute (3) Elevated troponin Current Visit: Yes Status: Acute (4) Hypertensive urgency Current Visit: Yes Status: Acute (5) Leukocytosis Current Visit: Yes Status: Acute (6) Chronic heart failure with preserved ejection fraction (HFpEF) Current Visit: Yes Status: Chronic (7) Dementia Current Visit: Yes Status: Chronic (8) HLD (hyperlipidemia) Current Visit: Yes Status: Chronic Qualifiers: Hyperlipidemia type: mixed hyperlipidemia Qualified Code(s): E78.2 - Mixed hyperlipidemia (9) Paranoid personality disorder Current Visit: Yes Status: Chronic (10) Vertigo Current Visit: Yes Status: Suspected Subjective Date of service: 03/16/21 Principal diagnosis: vertigo/weakness Interval history: Patient lying in bed and reports well today Patient not on monitor. Previously trending sinus 60s with no events on monitor Objective Vital Signs Temp Pulse Pulse Resp Resp BP BP 03/16/21 11:14 57 L 03/16/21 08:22 97.6 F 18 142/70 03/16/21 02:51 99.0 F 57 L 18 119/54 03/15/21 23:57 67 132/62 03/15/21 23:08 98.0 F 63 18 138/73 03/15/21 21:00 56 L 03/15/21 20:00 66 18 03/15/21 19:24 97.5 F L 67 18 132/62 03/15/21 15:23 98.2 F 60 20 127/62 Pulse Ox 03/16/21 11:14 98 03/16/21 08:22 03/16/21 02:51 98 03/15/21 23:57 03/15/21 23:08 100 03/15/21 21:00 98 03/15/21 20:00 03/15/21 19:24 98 03/15/21 15:23 97 - Physical Examination General: No Apparent Distress HEENT: Positive: EOMI, Normocephaly, Mucus Membranes Moist Neck: Positive: neck supple Cardiac: Positive: Reg Rate and Rhythm Lungs: Positive: Normal Breath Sounds Neuro: Positive: Grossly Intact Abdomen: Positive: Soft. Negative: Tender Skin: Negative: Rash Musculoskeletal: No Pain Extremities: Present: upper extr. pulses, lower extr. pulses. Absent: edema - Labs and Meds CBC 03/16/21 Range/Units 04:19 WBC 9.5 (4.5-11.0) K/mm3 RBC 3.03 L (3.65-5.03) M/mm3 Hgb 9.3 L (11.8-15.2) gm/dl Hct 27.2 L (35.5-45.6) % Plt Count 186 (140-440) K/mm3 Comprehensive Metabolic Panel 03/16/21 Range/Units 04:19 Sodium 138 (137-145) mmol/L Potassium 3.9 (3.6-5.0) mmol/L Chloride 99.6 (98-107) mmol/L Carbon Dioxide 26 (22-30) mmol/L BUN 38 H (9-20) mg/dL Creatinine 2.4 H (0.8-1.3) mg/dL Glucose 133 H (75-100) mg/dL Calcium 8.0 L (8.4-10.2) mg/dL - Imaging and Cardiology EKG: report reviewed, image reviewed Echo: report reviewed - Telemetry EKG Rhythm: Sinus Rhythm - EKG Sinus rhythms and dysrhythmias: sinus rhythm
--- NOTE | 2021-03-16 15:02 | Progress Note ---
Assessment and Plan Assessment and plan: Hypertensive Urgency. BP now stable Unsteady gait Orthostatic vertigo Possible stroke. Evaluation ongoing Chronic heart failure with preserved EF. Hyperlipidemia Elevated troponin Acute kidney injury. DVT prophylaxis 03/10/2021. Follow-up MRI and echocardiogram. CT of head negative. Neurology consultation pending. PT/OT. Cardiology consultation for elevated troponin. Continue antihypertensive medications. 03/11/2021. MRI and CTA of neck reveals no acute findings. CT of the head revea ls atherosclerotic disease along the M1 segment of left middle cerebral artery and at the P1 segment of the right posterior cerebral artery. Follow-up echocardiogram and speech evaluation. We will start a trial of meclizine for vertigo. Cardiology suspects that the troponin elevation is related to accelerated hypertension 03/12/2021. Echocardiogram reveals left ventricle with normal size and systolic function also normal. EF is 55 to 60%. Moderate concentric left ventricular hypertrophy. Physical therapy recommends CHASTITY. Speech therapy recommends regular diet with thin liquids. Await placement. 03/13/2021. Await placement. Continue aspirin and Lipitor. Continue medications for blood pressure control. 03/14/2021. Await placement. Continue aspirin and Lipitor. Continue medicati ons for blood pressure control. Patient with increase in creatinine. Recheck BMP today. Consider renal ultrasound. Patient is currently with Demadex, spironolactone and lisinopril. 03/15/2021 Patient with hypertensive urgency, HEIDE. He initially presented with elevated BP, dizziness, lightheadedness. He was thought to have had a stroke but MRI Brain negative. Will re-consult Neurology, Dr. Galindo to re-evaluate. His family enquiring about stroke diagnosis. I discussed case with Dr. Galindo. Also he has HEIDE. Consult Nephrology. He denies any previous history of Renal Failure. 03/16/2021 Patient with hypertensive urgency, HEIDE. He initially presented with elevated BP, dizziness, lightheadedness. He was thought to have had a stroke but MRI Brain negative. Re-consulted Neurology, Dr. Galindo to re-evaluate. His family enquiring about stroke diagnosis. I discussed case with Dr. Galindo. He evaluated patient and ordered repeat MRI Brain, pending. Patient also has HEIDE. Nephrology following. Cr 2.4 today, improved from 2.6 yesterday. To go to SNF when stable. He is not ready yet. History Interval history: Patient initially presented with elevated BP, dizziness, lightheadedness Hospitalist Physical - Physical exam Narrative exam: Gen: Not in acute distress, lying in bed HEENT: Normocephalic, atraumatic Neck:supple, Lungs: Clear to auscultation bilaterally, no wheee Heart: S1 and S2 reg, no murmurs, rubs or gallop Abd:soft, non-tender, non distended, normal bowel sounds Ext: No edema, clubbing or cyanosis Neuro: Awake, alert - Constitutional Vitals: Temp Pulse Resp BP Pulse Ox 97.6 F 57 L 18 142/70 98 03/16/21 08:22 03/16/21 11:14 03/16/21 08:22 03/16/21 08:22 03/16/21 11:14 General appearance: Present: no acute distress HEART Score - HEART Score Troponin: Troponin T 0.058 ng/mL (0.00-0.029) H 03/10/21 00:24 Results - Labs CBC & Chem 7: 03/16/21 04:19 03/16/21 04:19 Labs: Laboratory Last Values WBC 9.5 K/mm3 (4.5-11.0) 03/16/21 04:19 RBC 3.03 M/mm3 (3.65-5.03) L 03/16/21 04:19 Hgb 9.3 gm/dl (11.8-15.2) L 03/16/21 04:19 Hct 27.2 % (35.5-45.6) L 03/16/21 04:19 MCV 90 fl (84-94) 03/16/21 04:19 MCH 31 pg (28-32) 03/16/21 04:19 MCHC 34 % (32-34) 03/16/21 04:19 RDW 14.7 % (13.2-15.2) 03/16/21 04:19 Plt Count 186 K/mm3 (140-440) 03/16/21 04:19 Lymph % (Auto) 27.2 % (13.4-35.0) 03/12/21 04:40 [place] % (Auto) 11.1 % (0.0-7.3) H 03/12/21 04:40 Eos % (Auto) 3.3 % (0.0-4.3) 03/12/21 04:40 Baso % (Auto) 0.2 % (0.0-1.8) 03/12/21 04:40 Lymph # (Auto) 3.2 K/mm3 (1.2-5.4) 03/12/21 04:40 [place] # (Auto) 1.3 K/mm3 (0.0-0.8) H 03/12/21 04:40 Eos # (Auto) 0.4 K/mm3 (0.0-0.4) 03/12/21 04:40 Baso # (Auto) 0.0 K/mm3 (0.0-0.1) 03/12/21 04:40 Seg Neutrophils % 58.2 % (40.0-70.0) 03/12/21 04:40 Seg Neutrophils # 6.8 K/mm3 (1.8-7.7) 03/12/21 04:40 Sodium 138 mmol/L (137-145) 03/16/21 04:19 Potassium 3.9 mmol/L (3.6-5.0) 03/16/21 04:19 Chloride 99.6 mmol/L (98-107) 03/16/21 04:19 Carbon Dioxide 26 mmol/L (22-30) 03/16/21 04:19 Anion Gap 16 mmol/L 03/16/21 04:19 BUN 38 mg/dL (9-20) H 03/16/21 04:19 Creatinine 2.4 mg/dL (0.8-1.3) H 03/16/21 04:19 Estimated GFR 34 ml/min 03/16/21 04:19 BUN/Creatinine Ratio 16 % 03/16/21 04:19 Glucose 133 mg/dL (75-100) H 03/16/21 04:19 POC Glucose 168 mg/dL (70-105) H 03/14/21 17:04 Calcium 8.0 mg/dL (8.4-10.2) L 03/16/21 04:19 Phosphorus 3.70 mg/dL (2.5-4.5) 03/16/21 04:19 Magnesium 2.00 mg/dL (1.7-2.3) 03/09/21 18:06 Total Bilirubin 1.00 mg/dL (0.1-1.2) 03/09/21 18:06 AST 15 units/L (5-40) 03/09/21 18:06 ALT 9 units/L (7-56) 03/09/21 18:06 Alkaline Phosphatase 104 units/L (35-129) 03/09/21 18:06 Ammonia 27.0 umol/L (25-60) 03/09/21 18:06 Troponin T 0.058 ng/mL (0.00-0.029) H 03/10/21 00:24 Total Protein 6.9 g/dL (6.3-8.2) 03/09/21 18:06 Albumin 3.4 g/dL (3.9-5) L 03/09/21 18:06 Albumin/Globulin Ratio 1.0 % 03/09/21 18:06 Prealbumin 0.186 g/L (0.200-0.400) L 03/10/21 18:58 Triglycerides 115 mg/dL (2-149) 03/09/21 18:06 Cholesterol 138 mg/dL (50-199) 03/09/21 18:06 LDL Cholesterol Direct 76 mg/dL (50-130) 03/09/21 18:06 HDL Cholesterol 45 mg/dL (40-59) 03/09/21 18:06 Cholesterol/HDL Ratio 3.06 % 03/09/21 18:06 Vitamin B12 867.2 pg/mL (211-911) 03/10/21 18:58 Folate 19.96 ng/mL (7.3-26.0) 03/10/21 18:58 TSH 1.720 mlU/mL (0.270-4.200) 03/10/21 18:58 Urine Color Yellow (Yellow) 03/09/21 Unknown Urine Turbidity Clear (Clear) 03/09/21 Unknown Urine pH 5.0 (5.0-7.0) 03/09/21 Unknown Ur Specific [place] 1.008 (1.003-1.030) 03/09/21 Unknown Urine Protein >500 mg/dL (Negative) 03/09/21 Unknown Urine Glucose (UA) 50 mg/dL (Negative) 03/09/21 Unknown Urine Ketones Neg mg/dL (Negative) 03/09/21 Unknown Urine Blood Sm (Negative) 03/09/21 Unknown Urine Nitrite Neg (Negative) 03/09/21 Unknown Urine Bilirubin Neg (Negative) 03/09/21 Unknown Urine Urobilinogen < 2.0 mg/dL (<2.0) 03/09/21 Unknown Ur Leukocyte Esterase Neg (Negative) 03/09/21 Unknown Urine WBC (Auto) 1.0 /HPF (0.0-6.0) 03/09/21 Unknown Urine RBC (Auto) 2.0 /HPF (0.0-6.0) 03/09/21 Unknown U Epithel Cells (Auto) < 1.0 /HPF (0-13.0) 03/09/21 Unknown Syphilis IgG Antibody Nonreactive (NonReactive) 03/10/21 18:58 Coronavirus (PCR) Negative (Negative) 03/15/21 Unknown Kendall/IV: Voiding Method Toilet Active Medications - Current Medications Current Medications: Generic Name Dose Route Start Last Admin Trade Name Freq PRN Reason Stop Dose Admin Acetaminophen 650 mg 03/09/21 23:53 Acetaminophen 325 Mg Tab PO Q4H PRN Pain MILD(1-3)/Fever >100.5/DOUGLAS Amlodipine Besylate 10 mg 03/12/21 11:00 03/16/21 10:58 Amlodipine 10 Mg Tab PO 10 mg DAILY ARMANDO Administration Aspirin 325 mg 03/10/21 10:00 03/16/21 10:58 Aspirin 325 Mg Tab PO 325 mg QDAY ARMANDO Administration Atorvastatin Calcium 40 mg 03/10/21 22:00 03/15/21 23:57 Atorvastatin 40 Mg Tab PO 40 mg QHS ARMANDO Administration Bisacodyl 10 mg 03/09/21 23:53 Bisacodyl [address] QDAY PRN Constipation Budesonide 0.5 mg 03/12/21 20:00 03/16/21 08:00 Budesonide 0.5 Mg/2 Ml Nebu IH 0.5 mg Q12HRT ARMANDO Administration Carvedilol 12.5 mg 03/14/21 10:00 03/16/21 10:58 Carvedilol 12.5 Mg Tab PO 12.5 mg BID ARMANDO Administration Ergocalciferol 50,000 unit 03/19/21 10:00 Ergocalciferol (Vit D2) 50,000 Unit Cap PO Sa [facility] Folic Acid 1 mg 03/12/21 11:00 03/16/21 10:58 Folic Acid 1 Mg Tab PO 1 mg QDAY ARMANDO Administration Heparin Sodium (Porcine) 5,000 unit 03/10/21 06:00 03/16/21 14:58 Heparin 5,000 Unit/1 Ml Vial SUB-Q 5,000 unit Q8HR ARMANDO Administration Hydralazine HCl 10 mg 03/09/21 23:58 03/12/21 23:29 Hydralazine 20 Mg/1 Ml Inj IV 10 mg Q4HR PRN Administration Blood Pressure Magnesium Hydroxide 30 ml 03/09/21 23:53 Magnesium Hydroxide (Mom) Oral Liqd Udc PO Q4H PRN Constipation Meclizine HCl 25 mg 03/11/21 10:00 Meclizine 25 Mg Tab PO Q8H PRN Vertigo Metoclopramide HCl 10 mg 03/09/21 23:53 Metoclopramide 10 Mg Tab PO Q6H PRN Nausea And Vomiting Morphine Sulfate 2 mg 03/09/21 23:53 Morphine 2 Mg/1 Ml Inj IV Q4H PRN Pain, Moderate (4-6) Morphine Sulfate 4 mg 03/09/21 23:53 Morphine 4 Mg/1 Ml Inj IV Q4H PRN Pain , Severe (7-10) Ondansetron HCl 4 mg 03/09/21 23:53 03/13/21 09:21 Ondansetron 4 Mg/2 Ml Inj IV 4 mg Q8H PRN Administration Nausea And Vomiting Promethazine HCl 25 mg 03/09/21 23:53 Promethazine [address] Q6H PRN Nausea And Vomiting Sodium Chloride 10 ml 03/10/21 10:00 03/16/21 10:58 Sodium Chloride 0.9% 10 Ml Flush Syringe IV 10 ml BID ARMANDO Administration Sodium Chloride 10 ml 03/09/21 23:53 Sodium Chloride 0.9% 10 Ml Flush Syringe IV PRN PRN LINE FLUSH Thiamine HCl 100 mg 03/12/21 11:00 03/16/21 10:58 Thiamine 100 Mg Tab PO 100 mg QDAY ARMANDO Administration Nutrition/Malnutrition Assess - Dietary Evaluation Nutrition/Malnutrition Findings: Nutrition Notes Start: 03/10/21 16:53 Freq: Status: Active Protocol: Document 03/10/21 16:53 GB (Rec: 03/10/21 17:00 GB [email or web address]) Nutrition Notes Need for Assessment generated from: MD Order Initial or Follow up Assessment Current Diagnosis Hypertension,Heart Failure Other Pertinent Diagnosis dementia Current Diet cardiac Labs/Tests 03/09: Na 136, K 3.5, BUN 21 Pertinent Medications KCl, NaCl Height 5 ft 7 in Weight 81.5 kg Howard Body Weight (kg) 67.27 BMI 28.1 Weight change and time frame no reported weight change Weight Status Overweight Subjective/Other Information Consult for diet education Percent of energy/protein needs met: PO intake of meals 75% or greater. Pt eating meal at time of consult. PO intake meets 100% estimated energy needs Burn Absent Trauma Absent GI Symptoms None Food Allergy No Skin Integrity/Comment no complications reported Current % PO Good (75-100%) Minimum of two criteria No #1 Nutrition Diagnosis Food and nutrition-related knowledge deficit Comments: Pt does have dementia Etiology CHF, HTN As Evidenced by Signs and Symptoms consult for nutrition education Is patient on ventilator? No Is Patient Ambulatory and/or Out of Bed Yes REE-([facility]-ambulatory/OOB) [ NUTR.MSJOOB] Kcal/Kg value to use for calculation 25 Approximate Energy Requirements Using 2037 kcal/Kg Calculation Used for Recommendations Kcal/kg Additional Notes Protein: 0.8-1 g/kg @ 82k -82g Fluids: 1 ml/kcal or per MD Nutrition Intervention Change Diet Order: continue Nutrition Support: n/a Add Supplement/Snack (indicate name/kcal n/a /protein ) Teaching Recipient Patient Learning Readiness Good Teaching Methods Discussion,Handout Response to Teaching Verbalize understanding Education Handouts Provided Hypertension Nutrition Therapy by [facility] Nutrition Dietetics Barriers to Learning No Barriers Anticipated Discharge Needs: normal Revisit per MD consult or patient Sign Off request: Additional Comments Good PO, pt expressed understanding of salt intake management.
--- NOTE | 2021-03-16 15:04 | Magnetic Resonance Report ---
MRI BRAIN 03/16/2021 INDICATION / CLINICAL INFORMATION: CVA, DIZZINESS. TECHNIQUE: Multiplanar, multisequence MR images of the brain were obtained. COMPARISON: CT brain 03/09/2021 FINDINGS: BRAIN / INTRACRANIAL CONTENTS: Unenhanced MR images of the brain demonstrate no evidence of acute int racranial abnormality. Ventricles and sulci are normal in size and shape. There is no evidence of ischemic injury, demyelination, hemorrhage, or mass. Some minimal chronic deb nilda past white matter T2 weighted signal changes present. Focal chronic lacunar changes present in the right thalamus. There are no abnormal extra-axial fluid collections. EXTRACRANIAL: Unremarkable CRANIOCERVICAL JUNCTION: No significant abnormality. VASCULAR FLOW-VOIDS: No significant abnormality. IMPRESSION: No acute abnormality. Signer Name: Cr Doherty MD Signed: 03/16/2021 3:00 PM Workstation Name: [id number]
--- NOTE | 2021-03-16 16:09 | Progress Note ---
Assessment and Plan Assessment: Acute Renal Failure Hypertension CHF, Compensated Troponin Elevation Vertigo Dementia Plan: Renal labs reviewed. Serum creatinine 2.4 today, yesterday's was 2.6, and was 1. 12 on admission. Baseline serum creatinine unknown Renal ultrasound reviewed- No hydronephrosis. 5mm non-obstruction left renal stone Urine lytes, protein and eosinophils-pending Was on HCTZ, Lisinopril, Spironolactone and Torsemide, now held Strict I/O's daily Avoid nephrotoxic agents Renally dose medications Monitor renal function closely Plan of care reviewed by Dr. Lieberman Subjective Date of service: 03/16/21 Principal diagnosis: vertigo/weakness Interval history: Patient seen lying in bed. Objective - Vital Signs Vital signs: Vital Signs - 12hr 03/16/21 03/16/21 03/16/21 08:00 08:22 11:14 Temperature 97.6 F Pulse Rate 57 L Pulse Rate [ 65 Bilateral] Respiratory 18 Rate Respiratory 20 Rate [Bilateral ] Blood Pressure 142/70 O2 Sat by Pulse 98 Oximetry - General Appearance General appearance: well-developed, appears stated age EENT: ATNC, PERRL Neck: no JVD, supple Respiratory: Present: Decreased Breath Sounds Cardiology: S1S2 Gastrointestinal: normoactive bowel sounds Integumentary: warm and dry Neurologic: other (Awake and alert) Musculoskeletal: other (No edema) - Lab 03/16/21 04:19 03/16/21 04:19 Most recent lab results Calcium 8.0 mg/dL (8.4-10.2) L 03/16/21 04:19 Phosphorus 3.70 mg/dL (2.5-4.5) 03/16/21 04:19 Magnesium 2.00 mg/dL (1.7-2.3) 03/09/21 18:06 Medications & Allergies - Medications Allergies/Adverse Reactions: Allergies No Known Allergies Allergy (Verified 03/09/21 21:41) Home Medications: Home Medications Medication Instructions Recorded Confirmed Last Taken Type AtorvaSTATin [Lipitor] 40 mg PO HS 03/10/21 03/10/21 Unknown History Cholecalciferol (Vitamin D3) 50,000 unit PO QWEEK 03/10/21 03/10/21 Unknown History [Vitamin D3 50,000UNIT CAP] Fluticasone Propionate [Flovent 50 mcg IH DAILY 03/10/21 03/10/21 Unknown History Diskus] Folic Acid [Folvite] 1 mg PO QDAY 03/10/21 03/10/21 Unknown History LORazepam [Ativan] 1 mg PO Q6H 03/10/21 03/10/21 Unknown History Spironolactone [Aldactone] 25 mg PO QDAY 03/10/21 03/10/21 Unknown History Thiamine HCl [Vitamin B-1] 100 mg PO DAILY 03/10/21 03/10/21 Unknown History Torsemide [Demadex] 20 mg PO DAILY 03/10/21 03/10/21 Unknown History amLODIPine [Norvasc] 10 mg PO DAILY 03/10/21 03/10/21 Unknown History carvediloL [Coreg] 12.5 mg PO BID 03/10/21 03/10/21 Unknown History hydroCHLOROthiazide [HCTZ] 25 mg PO QDAY 03/10/21 03/10/21 Unknown History lisinopriL [Zestril TAB] 40 mg PO QDAY 03/10/21 03/10/21 Unknown History Active Medications: Generic Name Dose Route Start Last Admin Trade Name Freq PRN Reason Stop Dose Admin Acetaminophen 650 mg 03/09/21 23:53 Acetaminophen 325 Mg Tab PO Q4H PRN Pain MILD(1-3)/Fever >100.5/DOUGLAS Amlodipine Besylate 10 mg 03/12/21 11:00 03/16/21 10:58 Amlodipine 10 Mg Tab PO 10 mg DAILY ARMANDO Administration Aspirin 325 mg 03/10/21 10:00 03/16/21 10:58 Aspirin 325 Mg Tab PO 325 mg QDAY ARMANDO Administration Atorvastatin Calcium 40 mg 03/10/21 22:00 03/15/21 23:57 Atorvastatin 40 Mg Tab PO 40 mg QHS ARMANDO Administration Bisacodyl 10 mg 03/09/21 23:53 Bisacodyl 10 Mg Rect Supp [place] QDAY PRN Constipation Budesonide 0.5 mg 03/12/21 20:00 03/16/21 08:00 Budesonide 0.5 Mg/2 Ml Nebu IH 0.5 mg Q12HRT ARMANDO Administration Carvedilol 12.5 mg 03/14/21 10:00 03/16/21 10:58 Carvedilol 12.5 Mg Tab PO 12.5 mg BID ARMANDO Administration Ergocalciferol 50,000 unit 10/09/21 10:00 Ergocalciferol (Vit D2) 50,000 Unit Cap PO Sa ARMANDO Folic Acid 1 mg 03/12/21 11:00 03/16/21 10:58 Folic Acid 1 Mg Tab PO 1 mg QDAY ARMANDO Administration Heparin Sodium (Porcine) 5,000 unit 03/10/21 06:00 03/16/21 14:58 Heparin 5,000 Unit/1 Ml Vial SUB-Q 5,000 unit Q8HR ARMANDO Administration Hydralazine HCl 10 mg 03/09/21 23:58 03/12/21 23:29 Hydralazine 20 Mg/1 Ml Inj IV 10 mg Q4HR PRN Administration Blood Pressure Magnesium Hydroxide 30 ml 03/09/21 23:53 Magnesium Hydroxide (Mom) Oral Liqd Udc PO Q4H PRN Constipation Meclizine HCl 25 mg 03/11/21 10:00 Meclizine 25 Mg Tab PO Q8H PRN Vertigo Metoclopramide HCl 10 mg 03/09/21 23:53 Metoclopramide 10 Mg Tab PO Q6H PRN Nausea And Vomiting Morphine Sulfate 2 mg 03/09/21 23:53 Morphine 2 Mg/1 Ml Inj IV Q4H PRN Pain, Moderate (4-6) Morphine Sulfate 4 mg 03/09/21 23:53 Morphine 4 Mg/1 Ml Inj IV Q4H PRN Pain , Severe (7-10) Ondansetron HCl 4 mg 03/09/21 23:53 03/13/21 09:21 Ondansetron 4 Mg/2 Ml Inj IV 4 mg Q8H PRN Administration Nausea And Vomiting Promethazine HCl 25 mg 03/09/21 23:53 Promethazine 25 Mg Rect Supp [place] Q6H PRN Nausea And Vomiting Sodium Chloride 10 ml 03/10/21 10:00 03/16/21 10:58 Sodium Chloride 0.9% 10 Ml Flush Syringe IV 10 ml BID ARMANDO Administration Sodium Chloride 10 ml 03/09/21 23:53 Sodium Chloride 0.9% 10 Ml Flush Syringe IV PRN PRN LINE FLUSH Thiamine HCl 100 mg 03/12/21 11:00 03/16/21 10:58 Thiamine 100 Mg Tab PO 100 mg QDAY ARMANDO Administration
[2021-03-17 05:07] LABS: Hematocrit 28.4 % (35.5-45.6); Hemoglobin 9.7 gm/dl (11.8-15.2); Mean Corpuscular HGB Conc 34 % (32-34); Mean Corpuscular Volume 91 fl (84-94); Platelet Count 186 K/mm3 (140-440); Red Blood Count 3.13 M/mm3 (3.65-5.03); Red Cell Distribution Width 14.9 % (13.2-15.2)
[2021-03-17 05:27] LABS: Calcium 8.3 mg/dL (8.4-10.2)
[2021-03-17] MEDS: HEPARIN 5,000 UNIT/1 ML VIAL SUB-Q SCH ×3 (08:11→21:41)
--- NOTE | 2021-03-17 08:40 | Progress Note ---
Assessment and Plan Assessment: Acute kidney injury possibly 2/2 prerenal/ATN, no obstruction Hypertension Chronic HFpEF Elevated Troponin Vertigo Dementia Plan: Renal labs reviewed. Serum creatinine level was 1.8 today, yesterday's SCr level was 2.4 Baseline serum creatinine unknown Renal ultrasound reviewed showed 5mm non-obstruction left renal stone, no hydronephrosis Urine lytes, protein and eosinophils pending Holding HCTZ, Lisinopril, Spironolactone and Torsemide for now, monitor volume status closely Strict I/O's daily Renally dose medications Kendall Catheter: No Monitor renal function closely Intake= 240 ml Output= 1800 ml (Net= -1500 ml) Renal plan reviewed by Dr Lieberman Subjective Date of service: 03/17/21 Principal diagnosis: vertigo/weakness Interval history: Pt seen in bed having breathing treatment, pt denies shortness of breath, nausea, or vomiting Objective - Vital Signs Vital signs: Vital Signs - 12hr 03/16/21 03/16/21 03/16/21 22:52 23:00 23:43 Temperature 97.9 F Pulse Rate 69 64 62 Respiratory 18 Rate Blood Pressure 150/77 143/67 O2 Sat by Pulse 98 97 Oximetry 03/17/21 03:25 Temperature 97.6 F Pulse Rate 57 L Respiratory 18 Rate Blood Pressure 132/62 O2 Sat by Pulse 98 Oximetry - General Appearance General appearance: well-developed EENT: ATNC Neck: no JVD Respiratory: Present: Decreased Breath Sounds Cardiology: S1S2 Gastrointestinal: normoactive bowel sounds, no tenderness Integumentary: warm and dry Neurologic: other (awake, oriented to person, place, but not year, follows simple commands) Musculoskeletal: other (trace edema to BLE) Psychiatric: cooperative - Lab 03/17/21 04:39 03/17/21 04:39 Most recent lab results Calcium 8.3 mg/dL (8.4-10.2) L 03/17/21 04:39 Phosphorus 3.70 mg/dL (2.5-4.5) 03/16/21 04:19 Magnesium 2.00 mg/dL (1.7-2.3) 03/09/21 18:06 Medications & Allergies - Medications Allergies/Adverse Reactions: Allergies No Known Allergies Allergy (Verified 03/09/21 21:41) Home Medications: Home Medications Medication Instructions Recorded Confirmed Last Taken Type AtorvaSTATin [Lipitor] 40 mg PO HS 03/10/21 03/10/21 Unknown History Cholecalciferol (Vitamin D3) 50,000 unit PO QWEEK 03/10/21 03/10/21 Unknown History [Vitamin D3 50,000UNIT CAP] Fluticasone Propionate [Flovent 50 mcg IH DAILY 03/10/21 03/10/21 Unknown History Diskus] Folic Acid [Folvite] 1 mg PO QDAY 03/10/21 03/10/21 Unknown History LORazepam [Ativan] 1 mg PO Q6H 03/10/21 03/10/21 Unknown History Spironolactone [Aldactone] 25 mg PO QDAY 03/10/21 03/10/21 Unknown History Thiamine HCl [Vitamin B-1] 100 mg PO DAILY 03/10/21 03/10/21 Unknown History Torsemide [Demadex] 20 mg PO DAILY 03/10/21 03/10/21 Unknown History amLODIPine [Norvasc] 10 mg PO DAILY 03/10/21 03/10/21 Unknown History carvediloL [Coreg] 12.5 mg PO BID 03/10/21 03/10/21 Unknown History hydroCHLOROthiazide [HCTZ] 25 mg PO QDAY 03/10/21 03/10/21 Unknown History lisinopriL [Zestril TAB] 40 mg PO QDAY 03/10/21 03/10/21 Unknown History Active Medications: Generic Name Dose Route Start Last Admin Trade Name Freq PRN Reason Stop Dose Admin Acetaminophen 650 mg 03/09/21 23:53 Acetaminophen 325 Mg Tab PO Q4H PRN Pain MILD(1-3)/Fever >100.5/DOUGLAS Amlodipine Besylate 10 mg 03/12/21 11:00 03/16/21 10:58 Amlodipine 10 Mg Tab PO 10 mg DAILY ARMANDO Administration Aspirin 325 mg 03/10/21 10:00 03/16/21 10:58 Aspirin 325 Mg Tab PO 325 mg QDAY ARMANDO Administration Atorvastatin Calcium 40 mg 03/10/21 22:00 03/16/21 22:52 Atorvastatin 40 Mg Tab PO 40 mg QHS ARMANDO Administration Bisacodyl 10 mg 03/09/21 23:53 Bisacodyl 10 Mg Rect Supp AL QDAY PRN Constipation Budesonide 0.5 mg 03/12/21 20:00 03/16/21 20:23 Budesonide 0.5 Mg/2 Ml Nebu IH 0.5 mg Q12HRT ARMANDO Administration Carvedilol 12.5 mg 03/14/21 10:00 03/16/21 22:52 Carvedilol 12.5 Mg Tab PO 12.5 mg BID ARMANDO Administration Ergocalciferol 50,000 unit 03/19/21 10:00 Ergocalciferol (Vit D2) 50,000 Unit Cap PO Sa ARMANDO Folic Acid 1 mg 03/12/21 11:00 03/16/21 10:58 Folic Acid 1 Mg Tab PO 1 mg QDAY ARMANDO Administration Heparin Sodium (Porcine) 5,000 unit 03/10/21 06:00 03/17/21 08:11 Heparin 5,000 Unit/1 Ml Vial SUB-Q 5,000 unit Q8HR ARMANDO Administration Hydralazine HCl 10 mg 03/09/21 23:58 03/12/21 23:29 Hydralazine 20 Mg/1 Ml Inj IV 10 mg Q4HR PRN Administration Blood Pressure Magnesium Hydroxide 30 ml 03/09/21 23:53 Magnesium Hydroxide (Mom) Oral Liqd Udc PO Q4H PRN Constipation Meclizine HCl 25 mg 03/11/21 10:00 Meclizine 25 Mg Tab PO Q8H PRN Vertigo Metoclopramide HCl 10 mg 03/09/21 23:53 Metoclopramide 10 Mg Tab PO Q6H PRN Nausea And Vomiting Morphine Sulfate 2 mg 03/09/21 23:53 Morphine 2 Mg/1 Ml Inj IV Q4H PRN Pain, Moderate (4-6) Morphine Sulfate 4 mg 03/09/21 23:53 Morphine 4 Mg/1 Ml Inj IV Q4H PRN Pain , Severe (7-10) Ondansetron HCl 4 mg 03/09/21 23:53 03/13/21 09:21 Ondansetron 4 Mg/2 Ml Inj IV 4 mg Q8H PRN Administration Nausea And Vomiting Promethazine HCl 25 mg 03/09/21 23:53 Promethazine 25 Mg Rect Supp AL Q6H PRN Nausea And Vomiting Sodium Chloride 10 ml 03/10/21 10:00 03/16/21 22:53 Sodium Chloride 0.9% 10 Ml Flush Syringe IV 10 ml BID ARMANDO Administration Sodium Chloride 10 ml 03/09/21 23:53 Sodium Chloride 0.9% 10 Ml Flush Syringe IV PRN PRN LINE FLUSH Thiamine HCl 100 mg 03/12/21 11:00 03/16/21 10:58 Thiamine 100 Mg Tab PO 100 mg QDAY ARMANDO Administration
[2021-03-17] MEDS: BUDESONIDE 0.5 MG/2 ML NEBU IH SCH ×2 (08:50→20:38)
[2021-03-17] MEDS: FOLIC ACID 1 MG TAB PO SCH (10:10)
[2021-03-17] MEDS: amLODIPine 10 MG TAB PO SCH (10:10)
[2021-03-17] MEDS: ASPIRIN 325 MG TAB PO SCH (10:10)
[2021-03-17] MEDS: carvediloL 12.5 MG TAB PO SCH ×2 (10:10→21:41)
[2021-03-17] MEDS: THIAMINE 100 MG TAB PO SCH (10:11)
--- NOTE | 2021-03-17 13:21 | Progress Note ---
Assessment and Plan Assessment and Plan Assessment and plan: # NO Sign of CVA with right-sided weakness? -Unsteady gait -exam is remarkable for dysmetria and right pronator Repeat MRI brain is unremarkable. -CT brain and MRI are unremarkable CTA brain is remarkable for intracranial stenosis -astherosclerotic changest #Accelerated hypertension # Underlying dementia -Multi infarct vs alzheimer? #Chronic heart failure with preserved EF55-60%. Compensated. #Hyperlipidemia LDL# 76 #Elevated troponin #Acute kidney injury. #DVT prophylaxis PLAN 1- Repeat MRI brain showed no acute event 2- Maintain ASA and lipitor 3- PT therapy to see 4- Suggest ACH ab titer ? MG 5- Thiamin IV will follow as needed Subjective Date of service: 03/17/21 Principal diagnosis: vertigo/weakness Interval history: status is unchanged he is with right side weakness and dysmetria right side repeat MRI showed no acute event he is more alert interactive today Pt therapy is pending??? Objective - Vital Sign Vital Signs - 12hr 03/17/21 03/17/21 03/17/21 03:25 07:59 08:50 Temperature 97.6 F 98.1 F Pulse Rate 57 L 63 Pulse Rate [ 72 Bilateral] Respiratory 18 18 Rate Respiratory 18 Rate [Bilateral ] Blood Pressure 132/62 159/73 O2 Sat by Pulse 98 97 Oximetry 03/17/21 10:10 Temperature Pulse Rate 74 Pulse Rate [ Bilateral] Respiratory Rate Respiratory Rate [Bilateral ] Blood Pressure O2 Sat by Pulse Oximetry - General Apperance Constitutional: comfortable - EENT EENT: PERRL, mucous membranes moist - Respiratory Respiratory: chest non-tender, lungs clear, rhonchi - Cardiovascular Cardiovascular: regular rate, normal S1, normal S2 Extremities: no peripheral edema bilat, no clubbing, cyanosis - Gastrointestinal Gastrointestinal: normoactive bowel sounds - Integumentary Integumentary: normal - Neurologic Cranial nerve examination: PERRL, EOMI, other (diplopia ? EOMI ) Detailed motor examination: other (slight right upper ext. weakness and dysmetria , planter is down going difficulty with finger to nose R>L and or d iplopia ??) - Laboratory Findings CBC and BMP: 03/17/21 04:39 03/17/21 04:39 Abnormal Lab Findings: Abnormal Labs 03/09/21 03/09/21 03/10/21 18:06 18:06 00:24 WBC 12.5 H RBC 3.64 L Hgb 11.3 L Hct 32.3 L MCHC 35 H [place] % (Auto) 9.4 H [place] # (Auto) 1.2 H Sodium 136 L Potassium 3.5 L Chloride 97.1 L Carbon Dioxide BUN 21 H Creatinine Glucose 149 H POC Glucose Calcium Troponin T 0.056 H 0.058 H Albumin 3.4 L Prealbumin 03/10/21 03/11/21 03/11/21 18:58 08:24 17:14 WBC RBC Hgb Hct MCHC [place] % (Auto) [place] # (Auto) Sodium Potassium Chloride Carbon Dioxide BUN Creatinine Glucose POC Glucose 165 H 181 H Calcium Troponin T Albumin Prealbumin 0.186 L 03/11/21 03/12/21 03/12/21 22:08 04:40 04:40 WBC 11.6 H RBC 2.98 L Hgb 9.4 L Hct 26.5 L MCHC 36 H [place] % (Auto) 11.1 H [place] # (Auto) 1.3 H Sodium Potassium Chloride Carbon Dioxide 21 L D BUN 27 H Creatinine 2.7 H D Glucose 141 H POC Glucose 167 H Calcium 7.6 L Troponin T Albumin Prealbumin 03/12/21 03/12/21 03/13/21 07:55 15:43 08:08 WBC RBC Hgb Hct MCHC [place] % (Auto) [place] # (Auto) Sodium Potassium Chloride Carbon Dioxide BUN Creatinine Glucose POC Glucose 127 H 167 H 119 H Calcium Troponin T Albumin Prealbumin 03/13/21 03/13/21 03/14/21 11:42 16:12 08:08 WBC RBC Hgb Hct MCHC [place] % (Auto) [place] # (Auto) Sodium Potassium Chloride Carbon Dioxide BUN Creatinine Glucose POC Glucose 111 H 107 H 107 H Calcium Troponin T Albumin Prealbumin 03/14/21 03/14/21 03/14/21 10:26 12:42 17:04 WBC RBC Hgb Hct MCHC [place] % (Auto) [place] # (Auto) Sodium Potassium Chloride Carbon Dioxide BUN 31 H Creatinine 2.8 H Glucose 142 H POC Glucose 166 H 168 H Calcium 8.3 L Troponin T Albumin Prealbumin 03/15/21 03/16/21 03/16/21 05:06 04:19 04:19 WBC RBC 3.03 L Hgb 9.3 L Hct 27.2 L MCHC [place] % (Auto) [place] # (Auto) Sodium Potassium Chloride Carbon Dioxide BUN 34 H 38 H Creatinine 2.6 H 2.4 H Glucose 121 H 133 H POC Glucose Calcium 8.1 L 8.0 L Troponin T Albumin Prealbumin 03/17/21 03/17/21 04:39 04:39 WBC RBC 3.13 L Hgb 9.7 L Hct 28.4 L MCHC [place] % (Auto) [place] # (Auto) Sodium 136 L Potassium Chloride Carbon Dioxide BUN 34 H Creatinine 1.8 H Glucose 183 H POC Glucose Calcium 8.3 L Troponin T Albumin Prealbumin
--- NOTE | 2021-03-17 14:25 | Progress Note ---
Assessment and Plan Assessment and plan: A 55-year-old male with known history of hypertension , CHF and dementia presents to the emergency room today for by EMS from [facility] with a complaint of elevated blood pressure, dizziness and lightheadedness for about 5 days. Patient denies any headaches, no diaphoresis, no fever or chills, no chest pain or shortness of breath, no nausea vomiting and no abdominal pain. He denies any weakness, numbness or paresthesias. He states he just feels off balance. Hypertensive Urgency. BP has improved. Continue current medication. Unsteady gait. Stroke has been ruled out. Brain MRI x2. Head CT scan negative. CT of the neck negative for significant stenosis. Carotid Doppler ultrasound negative for significant stenosis. CT of the head showed atherosclerosis disease along the M1 segment of left middle cerebral artery and at the P1 segment of the right posterior cerebral artery.. Continue thiamine. Neurology input appreciated. Orthostatic vertigo Chronic heart failure with preserved EF. Continue to hold diuretics. Hyperlipidemia. On statin. Elevated troponin. Evaluated by cardiology and no further work-up recommended. Acute kidney injury. Baseline serum creatinine unknown. We will continue to h old HCTZ, lisinopril, Aldactone and torsemide. Nephrology input appreciated. Nephrolithiasis. Renal ultrasound reviewed showed 5mm non-obstruction left renal stone, no hydronephrosis Constipation. Continue current. Laxative. DVT prophylaxis. Subcu heparin. 03/10/2021. Follow-up MRI and echocardiogram. CT of head negative. Neurology consultation pending. PT/OT. Cardiology consultation for elevated troponin. Continue antihypertensive medications. 03/11/2021. MRI and CTA of neck reveals no acute findings. CT of the head reveals atherosclerotic disease along the M1 segment of left middle cerebral artery and at the P1 segment of the right posterior cerebral artery.Follow-up echocardiogram and speech evaluation. We will start a trial of meclizine for vertigo. Cardiology suspects that the troponin elevation is related to accelerated hypertension 03/12/2021. Echocardiogram reveals left ventricle with normal size and systolic function also normal. EF is 55 to 60%. Moderate concentric left ventricular hypertrophy. Physical therapy recommends CHASTITY. Speech therapy recommends regular diet with thin liquids. Await placement. 03/13/2021. Await placement. Continue aspirin and Lipitor. Continue medications for blood pressure control. 03/14/2021. Await placement. Continue aspirin and Lipitor. Continue medications for blood pressure control. Patient with increase in creatinine. Recheck BMP today. Consider renal ultrasound. Patient is currently with Demadex, spironolactone and lisinopril. 03/15/2021 Patient with hypertensive urgency, HEIDE. He initially presented with elevated BP, dizziness, lightheadedness. He was thought to have had a stroke but MRI Brain negative. Will re-consult Neurology, Dr. Galindo to re-evaluate. His family enquiring about stroke diagnosis. I discussed case with Dr. Galindo. Also he has HEIDE. Consult Nephrology. He denies any previous history of Renal Failure. 03/16/2021 Patient with hypertensive urgency, HEIDE. He initially presented with elevated BP, dizziness, lightheadedness. He was thought to have had a stroke but MRI Brain negative. Re-consulted Neurology, Dr. Galindo to re-evaluate. His family enquiring about stroke diagnosis. I discussed case with Dr. Galindo. He evaluated patient and ordered repeat MRI Brain, pending. Patient also has HEIDE. Nephrology following. Cr 2.4 today, improved from 2.6 yesterday. To go to SNF when stable. He is not ready yet. 03/17/2021. Repeat brain MRI negative. Neurology input appreciated. Patient has constipation and will continue as needed Colace. History Interval history: Has constipation. No other complaints. No shortness of breath or cough. Hospitalist Physical - Constitutional Vitals: Temp Pulse Resp BP Pulse Ox 98.1 F 74 18 159/73 97 03/17/21 07:59 03/17/21 10:10 03/17/21 08:50 03/17/21 07:59 03/17/21 07:59 General appearance: Present: no acute distress - EENT Eyes: Present: PERRL, EOM intact ENT: hearing intact - Neck Neck: Present: supple, normal ROM - Respiratory Respiratory effort: normal Respiratory: bilateral: CTA - Cardiovascular Rhythm: regular Heart Sounds: Present: S1 & S2 - Extremities Extremities: No edema - Abdominal General gastrointestinal: soft, non-tender, non-distended, normal bowel sounds - Integumentary Integumentary: Present: clear, warm, dry HEART Score - HEART Score Troponin: Troponin T 0.058 ng/mL (0.00-0.029) H 03/10/21 00:24 Results - Labs CBC & Chem 7: 03/17/21 04:39 03/17/21 04:39 Labs: Laboratory Last Values WBC 10.2 K/mm3 (4.5-11.0) 03/17/21 04:39 RBC 3.13 M/mm3 (3.65-5.03) L 03/17/21 04:39 Hgb 9.7 gm/dl (11.8-15.2) L 03/17/21 04:39 Hct 28.4 % (35.5-45.6) L 03/17/21 04:39 MCV 91 fl (84-94) 03/17/21 04:39 MCH 31 pg (28-32) 03/17/21 04:39 MCHC 34 % (32-34) 03/17/21 04:39 RDW 14.9 % (13.2-15.2) 03/17/21 04:39 Plt Count 186 K/mm3 (140-440) 03/17/21 04:39 Lymph % (Auto) 27.2 % (13.4-35.0) 03/12/21 04:40 [place] % (Auto) 11.1 % (0.0-7.3) H 03/12/21 04:40 Eos % (Auto) 3.3 % (0.0-4.3) 03/12/21 04:40 Baso % (Auto) 0.2 % (0.0-1.8) 03/12/21 04:40 Lymph # (Auto) 3.2 K/mm3 (1.2-5.4) 03/12/21 04:40 [place] # (Auto) 1.3 K/mm3 (0.0-0.8) H 03/12/21 04:40 Eos # (Auto) 0.4 K/mm3 (0.0-0.4) 03/12/21 04:40 Baso # (Auto) 0.0 K/mm3 (0.0-0.1) 03/12/21 04:40 Seg Neutrophils % 58.2 % (40.0-70.0) 03/12/21 04:40 Seg Neutrophils # 6.8 K/mm3 (1.8-7.7) 03/12/21 04:40 Sodium 136 mmol/L (137-145) L 03/17/21 04:39 Potassium 4.1 mmol/L (3.6-5.0) 03/17/21 04:39 Chloride 100.3 mmol/L (98-107) 03/17/21 04:39 Carbon Dioxide 25 mmol/L (22-30) 03/17/21 04:39 Anion Gap 15 mmol/L 03/17/21 04:39 BUN 34 mg/dL (9-20) H 03/17/21 04:39 Creatinine 1.8 mg/dL (0.8-1.3) H 03/17/21 04:39 Estimated GFR 48 ml/min 03/17/21 04:39 BUN/Creatinine Ratio 19 % 03/17/21 04:39 Glucose 183 mg/dL (75-100) H 03/17/21 04:39 POC Glucose 168 mg/dL (70-105) H 03/14/21 17:04 Calcium 8.3 mg/dL (8.4-10.2) L 03/17/21 04:39 Phosphorus 3.70 mg/dL (2.5-4.5) 03/16/21 04:19 Magnesium 2.00 mg/dL (1.7-2.3) 03/09/21 18:06 Total Bilirubin 1.00 mg/dL (0.1-1.2) 03/09/21 18:06 AST 15 units/L (5-40) 03/09/21 18:06 ALT 9 units/L (7-56) 03/09/21 18:06 Alkaline Phosphatase 104 units/L (35-129) 03/09/21 18:06 Ammonia 27.0 umol/L (25-60) 03/09/21 18:06 Troponin T 0.058 ng/mL (0.00-0.029) H 03/10/21 00:24 Total Protein 6.9 g/dL (6.3-8.2) 03/09/21 18:06 Albumin 3.4 g/dL (3.9-5) L 03/09/21 18:06 Albumin/Globulin Ratio 1.0 % 03/09/21 18:06 Prealbumin 0.186 g/L (0.200-0.400) L 03/10/21 18:58 Triglycerides 115 mg/dL (2-149) 03/09/21 18:06 Cholesterol 138 mg/dL (50-199) 03/09/21 18:06 LDL Cholesterol Direct 76 mg/dL (50-130) 03/09/21 18:06 HDL Cholesterol 45 mg/dL (40-59) 03/09/21 18:06 Cholesterol/HDL Ratio 3.06 % 03/09/21 18:06 Vitamin B12 867.2 pg/mL (211-911) 03/10/21 18:58 Folate 19.96 ng/mL (7.3-26.0) 03/10/21 18:58 TSH 1.720 mlU/mL (0.270-4.200) 03/10/21 18:58 Urine Color Yellow (Yellow) 03/09/21 Unknown Urine Turbidity Clear (Clear) 03/09/21 Unknown Urine pH 5.0 (5.0-7.0) 03/09/21 Unknown Ur Specific [place] 1.008 (1.003-1.030) 03/09/21 Unknown Urine Protein >500 mg/dL (Negative) 03/09/21 Unknown Urine Glucose (UA) 50 mg/dL (Negative) 03/09/21 Unknown Urine Ketones Neg mg/dL (Negative) 03/09/21 Unknown Urine Blood Sm (Negative) 03/09/21 Unknown Urine Nitrite Neg (Negative) 03/09/21 Unknown Urine Bilirubin Neg (Negative) 03/09/21 Unknown Urine Urobilinogen < 2.0 mg/dL (<2.0) 03/09/21 Unknown Ur Leukocyte Esterase Neg (Negative) 03/09/21 Unknown Urine WBC (Auto) 1.0 /HPF (0.0-6.0) 03/09/21 Unknown Urine RBC (Auto) 2.0 /HPF (0.0-6.0) 03/09/21 Unknown U Epithel Cells (Auto) < 1.0 /HPF (0-13.0) 03/09/21 Unknown Syphilis IgG Antibody Nonreactive (NonReactive) 03/10/21 18:58 Coronavirus (PCR) Negative (Negative) 03/15/21 Unknown Kendall/IV: Voiding Method Urinal Active Medications - Current Medications Current Medications: Generic Name Dose Route Start Last Admin Trade Name Freq PRN Reason Stop Dose Admin Acetaminophen 650 mg 03/09/21 23:53 Acetaminophen 325 Mg Tab PO Q4H PRN Pain MILD(1-3)/Fever >100.5/DOUGLAS Amlodipine Besylate 10 mg 03/12/21 11:00 03/17/21 10:10 Amlodipine 10 Mg Tab PO 10 mg DAILY ARMANDO Administration Aspirin 325 mg 03/10/21 10:00 03/17/21 10:10 Aspirin 325 Mg Tab PO 325 mg QDAY ARMANDO Administration Atorvastatin Calcium 40 mg 03/10/21 22:00 03/16/21 22:52 Atorvastatin 40 Mg Tab PO 40 mg QHS ARMANDO Administration Bisacodyl 10 mg 03/09/21 23:53 Bisacodyl 10 Mg Rect Supp DE QDAY PRN Constipation Budesonide 0.5 mg 03/12/21 20:00 03/17/21 08:50 Budesonide 0.5 Mg/2 Ml Nebu IH 0.5 mg Q12HRT ARMANDO Administration Carvedilol 12.5 mg 03/14/21 10:00 03/17/21 10:10 Carvedilol 12.5 Mg Tab PO 12.5 mg BID ARMANDO Administration Ergocalciferol 50,000 unit 03/19/21 10:00 Ergocalciferol (Vit D2) 50,000 Unit Cap PO Sa ARMANDO Folic Acid 1 mg 03/12/21 11:00 03/17/21 10:10 Folic Acid 1 Mg Tab PO 1 mg QDAY ARMANDO Administration Heparin Sodium (Porcine) 5,000 unit 03/10/21 06:00 03/17/21 08:11 Heparin 5,000 Unit/1 Ml Vial SUB-Q 5,000 unit Q8HR ARMANDO Administration Hydralazine HCl 10 mg 03/09/21 23:58 03/12/21 23:29 Hydralazine 20 Mg/1 Ml Inj IV 10 mg Q4HR PRN Administration Blood Pressure Thiamine HCl 100 mg/ Sodium 51 mls @ 100 mls/hr 03/17/21 14:00 Chloride IV 03/19/21 23:59 QDAY ARMANDO Magnesium Hydroxide 30 ml 03/09/21 23:53 Magnesium Hydroxide (Mom) Oral Liqd Udc PO Q4H PRN Constipation Meclizine HCl 25 mg 03/11/21 10:00 Meclizine 25 Mg Tab PO Q8H PRN Vertigo Metoclopramide HCl 10 mg 03/09/21 23:53 Metoclopramide 10 Mg Tab PO Q6H PRN Nausea And Vomiting Morphine Sulfate 2 mg 03/09/21 23:53 Morphine 2 Mg/1 Ml Inj IV Q4H PRN Pain, Moderate (4-6) Morphine Sulfate 4 mg 03/09/21 23:53 Morphine 4 Mg/1 Ml Inj IV Q4H PRN Pain , Severe (7-10) Ondansetron HCl 4 mg 03/09/21 23:53 03/13/21 09:21 Ondansetron 4 Mg/2 Ml Inj IV 4 mg Q8H PRN Administration Nausea And Vomiting Promethazine HCl 25 mg 03/09/21 23:53 Promethazine 25 Mg Rect Supp DE Q6H PRN Nausea And Vomiting Sodium Chloride 10 ml 03/10/21 10:00 03/17/21 10:11 Sodium Chloride 0.9% 10 Ml Flush Syringe IV 10 ml BID ARMANDO Administration Sodium Chloride 10 ml 03/09/21 23:53 Sodium Chloride 0.9% 10 Ml Flush Syringe IV PRN PRN LINE FLUSH Thiamine HCl 100 mg 03/12/21 11:00 03/17/21 10:11 Thiamine 100 Mg Tab PO 100 mg QDAY ARMANDO Administration Nutrition/Malnutrition Assess - Dietary Evaluation Nutrition/Malnutrition Findings: Nutrition Notes Start: 03/10/21 16:53 Freq: Status: Active Protocol: Document 03/10/21 16:53 GB (Rec: 03/10/21 17:00 GB [email or web address]) Nutrition Notes Need for Assessment generated from: MD Order Initial or Follow up Assessment Current Diagnosis Hypertension,Heart Failure Other Pertinent Diagnosis dementia Current Diet cardiac Labs/Tests 03/09: Na 136, K 3.5, BUN 21 Pertinent Medications KCl, NaCl Height 5 ft 7 in Weight 81.5 kg [place] Body Weight (kg) 67.27 BMI 28.1 Weight change and time frame no reported weight change Weight Status Overweight Subjective/Other Information Consult for diet education Percent of energy/protein needs met: PO intake of meals 75% or greater. Pt eating meal at time of consult. PO intake meets 100% estimated energy needs Burn Absent Trauma Absent GI Symptoms None Food Allergy No Skin Integrity/Comment no complications reported Current % PO Good (75-100%) Minimum of two criteria No #1 Nutrition Diagnosis Food and nutrition-related knowledge deficit Comments: Pt does have dementia Etiology CHF, HTN As Evidenced by Signs and Symptoms consult for nutrition education Is patient on ventilator? No Is Patient Ambulatory and/or Out of Bed Yes REE-([employer]-St. Jeor-ambulatory/OOB) [ [id number]] Kcal/Kg value to use for calculation 25 Approximate Energy Requirements Using 2037 kcal/Kg Calculation Used for Recommendations Kcal/kg Additional Notes Protein: 0.8-1 g/kg @ 82k -82g Fluids: 1 ml/kcal or per MD Nutrition Intervention Change Diet Order: continue Nutrition Support: n/a Add Supplement/Snack (indicate name/kcal n/a /protein ) Teaching Recipient Patient Learning Readiness Good Teaching Methods Discussion,Handout Response to Teaching Verbalize understanding Education Handouts Provided Hypertension Nutrition Therapy by [facility] Nutrition Dietetics Barriers to Learning No Barriers Anticipated Discharge Needs: normal Revisit per MD consult or patient Sign Off request: Additional Comments Good PO, pt expressed understanding of salt intake management.
--- NOTE | 2021-03-17 15:49 | Progress Note ---
Assessment and Plan Diuretics and ACEI remain on hold. Continue to follow renal indices. BP stable on current regimen. Recommend resumption of at least daily maintenance diuretic (previously on Torsemide 20mg daily) prior to discharge. Otherwise stable cardiac status. Follow-up with [facility] within 1-2 weeks of discharge. Pt seen in conjunction with Dr. Anu Ambrose, who agrees with the assessment and plan of care. - Patient Problems (1) Dysequilibrium Current Visit: Yes Status: Acute (2) Vertigo Current Visit: Yes Status: Acute (3) Chronic heart failure with preserved ejection fraction (HFpEF) Current Visit: Yes Status: Chronic (4) HEIDE (acute kidney injury) Current Visit: Yes Status: Acute (5) Anemia Current Visit: Yes Status: Acute (6) Elevated troponin Current Visit: Yes Status: Acute (7) HTN (hypertension) Current Visit: Yes Status: Chronic Qualifiers: Hypertension type: primary hypertension Qualified Code(s): I10 - Essential (primary) hypertension (8) HLD (hyperlipidemia) Current Visit: Yes Status: Chronic Qualifiers: Hyperlipidemia type: mixed hyperlipidemia Qualified Code(s): E78.2 - Mixed hyperlipidemia (9) Paranoid personality disorder Current Visit: Yes Status: Chronic (10) Dementia Current Visit: Yes Status: Chronic Subjective Date of service: 03/17/21 Principal diagnosis: Vertigo Interval history: Resting comfortably in bed. States he is feeling good. SR 60s on tele this AM, with no events captured. Objective Last Vital Signs Temp 98.1 F 03/17/21 07:59 Pulse 74 03/17/21 10:10 Resp 18 03/17/21 08:50 BP 159/73 03/17/21 07:59 Pulse Ox 97 03/17/21 07:59 - Physical Examination General: No Apparent Distress HEENT: Positive: EOMI, Normocephaly, Mucus Membranes Moist Neck: Positive: neck supple, trachea midline Cardiac: Positive: Reg Rate and Rhythm, S1/S2 Lungs: Positive: clear to auscultation Neuro: Positive: Grossly Intact Abdomen: Positive: Soft. Negative: Tender Skin: Negative: Rash Musculoskeletal: No Pain Extremities: Present: upper extr. pulses, lower extr. pulses. Absent: edema - Labs and Meds CBC 03/17/21 Range/Units 04:39 WBC 10.2 (4.5-11.0) K/mm3 RBC 3.13 L (3.65-5.03) M/mm3 Hgb 9.7 L (11.8-15.2) gm/dl Hct 28.4 L (35.5-45.6) % Plt Count 186 (140-440) K/mm3 Comprehensive Metabolic Panel 03/17/21 Range/Units 04:39 Sodium 136 L (137-145) mmol/L Potassium 4.1 (3.6-5.0) mmol/L Chloride 100.3 (98-107) mmol/L Carbon Dioxide 25 (22-30) mmol/L BUN 34 H (9-20) mg/dL Creatinine 1.8 H (0.8-1.3) mg/dL Glucose 183 H (75-100) mg/dL Calcium 8.3 L (8.4-10.2) mg/dL - Imaging and Cardiology EKG: report reviewed, image reviewed Echo: report reviewed (03/09/2021 - EF 55-60%, mod LVH, mild diastolic dysfxn, negative bubble study) - Telemetry EKG Rhythm: Sinus Rhythm - EKG Sinus rhythms and dysrhythmias: sinus rhythm - Allied health notes Allied health notes reviewed: nursing
[2021-03-17] MEDS: THIAMINE 100 MG in SODIUM CHLORIDE 0.9% 50 ML IV SCH (16:49)
[2021-03-18] MEDS: HEPARIN 5,000 UNIT/1 ML VIAL SUB-Q SCH ×2 (06:25→14:17)
[2021-03-18] MEDS: BUDESONIDE 0.5 MG/2 ML NEBU IH SCH ×2 (09:51→19:15)
[2021-03-18 10:27] LABS: BUN/Creatinine Ratio 21; Blood Urea Nitrogen 27 mg/dL (9-20); Calcium 8.4 mg/dL (8.4-10.2); Hemolysis Index 4
[2021-03-18] MEDS: amLODIPine 10 MG TAB PO SCH (11:26)
[2021-03-18] MEDS: carvediloL 12.5 MG TAB PO SCH (11:29)
[2021-03-18] MEDS: ASPIRIN 325 MG TAB PO SCH (11:30)
[2021-03-18] MEDS: THIAMINE 100 MG in SODIUM CHLORIDE 0.9% 50 ML IV SCH (11:30)
[2021-03-18] MEDS: THIAMINE 100 MG TAB PO SCH (11:30)
[2021-03-18] MEDS: FOLIC ACID 1 MG TAB PO SCH (11:30)
[2021-03-18 11:32] VITALS: BP 149/71
--- NOTE | 2021-03-18 12:55 | Discharge Summary ---
Providers - Providers Date of Admission: 03/10/21 16:18 Date of discharge: 03/18/21 Attending physician: CHARMAINE KNIGHT MD 03/09/21 23:53 Consult to Dietitian/Nutrition [CONS] Routine Physician Instructions: Reason For Exam: Reason for Consult: Nutrition Recommendations Reason for Consult: Diet education Consult to Physician [CONS] Routine Comment: Consulting Provider: KATE KHAN Physician Instructions: Reason For Exam: Disequilibrium Occupational Therapy Evaluate and Treat [CONS] Routine Comment: Reason For Exam: Neuro deficits Physical Therapy Evaluation and Treat [CONS] Routine Comment: Reason For Exam: Neuro deficits 03/09/21 23:56 Speech Therapy Evaluation and Treat [CONS] Stat Reason For Exam: swallow eval 03/10/21 07:52 Consult to Physician [CONS] Routine Comment: Consulting Provider: VEE ORTEGA Physician Instructions: Reason For Exam: elevated trop 03/15/21 09:52 Consult to Physician [CONS] Routine Comment: Consulting Provider: PHILIPPE CAMPBELL Physician Instructions: Reason For Exam: HEIDE Cr 2.6 03/15/21 11:49 Consult to Physician [CONS] Routine Comment: Consulting Provider: TIARRA MALDONADO Physician Instructions: Reason For Exam: Dizziness. to r/o stroke Primary care physician: ZULMA PUGH Hospitalization Condition: Stable Hospital course: A 55-year-old male with known history of hypertension , CHF and dementia presents to the emergency room brought by EMS from [facility] with a complaint of elevated blood pressure, unsteady gait, dizziness and lightheadedness for about 5 days. He also complains of headache, localized weakness, paresthesia. He was admitted to the hospital was ruled out for stroke with brain MRI negative x2. Head CT scan negative for acute finding. CT of the neck negative for significant stenosis. Carotid Doppler ultrasound negative for significant stenosis. CT of the head showed atherosclerosis disease along the M1 segment of left middle cerebral artery and at the P1 segment of the right posterior cerebral artery. He was evaluated by neurologist and recommended continued. He was evaluated by PT/OT recommendations to return back to subacute rehab. His blood pressure was uncontrolled and was resumed on his home medication. He was also started on hydralazine prior to discharge his blood pressure had improved. He has CHF with preserved EF and no sign of decompensation. He had acute kidney injury which improved. He was on diuretics outpatient which was held and was told to resume torsemide upon discharge. Renal ultrasound showed 5mm non-obstruction left renal stone, no hydronephrosis. Had constipation and was on laxative. He had elevated troponin and there was no further work-up recommended by cardiology. At the time of discharge, there was no new complaints. Disposition: 01 HOME / SELF CARE / HOMELESS Final Discharge Diagnosis (Prints w/discharge instructions): Dizziness. Unsteady gait. Uncontrolled hypertension Core Measure Documentation - Palliative Care Palliative Care/ Comfort Measures: Not Applicable - Core Measures Any of the following diagnoses?: history only - VTE Discharge Requirements Deep Vein Thrombosis/Pulmonary Embolism Present on Admission: No Has pt received <5 days of overlap therapy or INR<2.0: No Anticoagulant overlap therapy prescribed at discharge: No Contraindication No Overlap Therapy order at DC: Not Indicated - Acute [place] Discharge Requirements Aspirin at discharge: No Reason for no aspirin on DC: Medical contraindication LUPE/ARB for LVSD if EF <40%: Not Applicable Reason for no LUPE/ARB: Renal impairment Beta jerod at discharge: No Reason for no beta jeord on DC: Medical contraindication Statin for LDL = or >100 mg/dl on DC: Not Applicable Reason for no statin on DC: Medical contraindication - Heart Failure Discharge Requirements LUPE/ARB for LVSD if EF <40%: Not Applicable Reason for no LUPE/ARB: Medical contraindication Beta jerod at discharge: No Reason for no beta jerod on DC: Medical contraindication - Stroke Discharge Requirements Statin for LDL = or >70 mg/dl on DC: Not Applicable Reason for no statin on DC: Medical Contraindication Anticoag for atrial fib/atrial flutter: Not Applicable Reason for no anticoag for AF/F on DC: Not Indicated Antithrombotic for ischemic stroke: No Reason for no antithrombotic on DC: Not Indicated Exam - Constitutional Vitals: Temp Pulse Resp BP Pulse Ox 97.7 F 66 18 149/71 98 03/18/21 07:37 03/18/21 11:29 03/18/21 09:54 03/18/21 11:29 03/18/21 07:38 General appearance: Present: no acute distress, well-nourished - EENT Eyes: Present: PERRL, EOM intact ENT: hearing intact - Neck Neck: Present: supple, normal ROM - Respiratory Respiratory effort: normal - Cardiovascular Rhythm: regular Heart Sounds: Present: S1 & S2 - Extremities Extremities: No edema - Abdominal General gastrointestinal: Present: soft, non-tender, non-distended, normal bowel sounds - Integumentary Integumentary: Present: clear, warm, dry - Psychiatric Psychiatric: appropriate mood/affect - Neurologic Neurologic: CNII-XII intact, moves all extremities Plan Activity: advance as tolerated Weight Bearing Status: Weight Bear as Tolerated Diet: low salt Follow up with: ZULMA PUGH MD [Primary Care Provider] - 3-5 Days PHILIPPE CAMPBELL MD [Staff Physician] - 7 Days Prescriptions: Aspirin [Adult Aspirin] 81 mg PO DAILY 30 Days tablet.
--- NOTE | 2021-03-18 13:16 | Progress Note ---
Assessment and Plan Gait Dysfunction // ?Vertigo / Ischemic stroke? * Neuro following * Repeat MRI negative for stroke Chronic HFpEF(compensated) * Previously on Torsemide 20mg daily * Echo 03/09/2021-EF 55 to 60%, moderate concentric left ventricular hypertrophy, mild diastolic dysfunction impaired relaxation pattern right ventricular sys tolic function is normal, left atrium is mildly dilated, right atrium normal in size bubble study did not demonstrate PFO Accelerated HTN * Outpatient regimen: Amlodipine 10mg daily, Coreg 12.5mg BID, Aldactone 25mg daily, HCTZ 25mg daily, & Lisinopril 40mg daily HEIDE * Creatinine 1.3 today * Nephrology following Non-AL Troponin Elevation * EKG shows normal sinus rhythm with no acute ischemic changes. AMI ruled out * Pt denies chest pain * Troponins minimally elevated likely elevated in the setting of accelerated HTN HLD * Continue Atorvastatin 40mg daily once Dementia * Paranoid Personality Disorder * Mgmt per Primary Plan: In setting of HEIDE will continue to hold torsemide and lisinopril. BP stable on current regimen. Recommend resumption of at previously on Torsemide 20mg daily prior to discharge. Will continue to follow Cardiac status stable. Patient should follow up with their [facility] Pt seen in conjunction with Dr. Ambrose, who agrees with the assessment and plan of care. - Patient Problems (1) Accelerated hypertension Current Visit: Yes Status: Acute (2) Dysequilibrium Current Visit: Yes Status: Acute (3) Elevated troponin Current Visit: Yes Status: Acute (4) Hypertensive urgency Current Visit: Yes Status: Acute (5) Leukocytosis Current Visit: Yes Status: Acute (6) Chronic heart failure with preserved ejection fraction (HFpEF) Current Visit: Yes Status: Chronic (7) Dementia Current Visit: Yes Status: Chronic (8) HLD (hyperlipidemia) Current Visit: Yes Status: Chronic Qualifiers: Hyperlipidemia type: mixed hyperlipidemia Qualified Code(s): E78.2 - Mixed hyperlipidemia (9) Paranoid personality disorder Current Visit: Yes Status: Chronic (10) Vertigo Current Visit: Yes Status: Acute Subjective Date of service: 03/18/21 Principal diagnosis: Vertigo Interval history: Patient lying in bed with no cardiac complaints Patient sinus 60s with no events on monitor Objective Vital Signs Temp Pulse Pulse Resp Resp BP Pulse Ox 03/18/21 11:29 66 149/71 10/08/21 11:26 66 149/71 03/18/21 09:54 66 18 03/18/21 09:05 56 L 03/18/21 07:38 98 03/18/21 07:37 97.7 F 52 L 17 141/59 100 03/18/21 04:26 98.2 F 59 L 18 143/69 98 03/18/21 00:04 98.0 F 87 18 151/76 98 03/17/21 23:00 98 03/17/21 20:41 72 18 03/17/21 19:23 98.6 F 70 18 167/71 98 03/17/21 16:09 98.0 F 61 18 101/55 100 - Physical Examination General: No Apparent Distress HEENT: Positive: EOMI, Normocephaly, Mucus Membranes Moist Neck: Positive: neck supple, trachea midline Cardiac: Positive: Reg Rate and Rhythm Lungs: Positive: Normal Breath Sounds Neuro: Positive: Grossly Intact Abdomen: Positive: Soft. Negative: Tender Skin: Negative: Rash Musculoskeletal: No Pain Extremities: Present: upper extr. pulses, lower extr. pulses. Absent: edema - Labs and Meds Comprehensive Metabolic Panel 03/18/21 Range/Units 09:25 Sodium 138 (137-145) mmol/L Potassium 4.5 (3.6-5.0) mmol/L Chloride 103.0 (98-107) mmol/L Carbon Dioxide 25 (22-30) mmol/L BUN 27 H (9-20) mg/dL Creatinine 1.3 (0.8-1.3) mg/dL Glucose 147 H (75-100) mg/dL Calcium 8.4 (8.4-10.2) mg/dL - Imaging and Cardiology EKG: report reviewed, image reviewed Echo: report reviewed (03/09/2021 - EF 55-60%, mod LVH, mild diastolic dysfxn, negative bubble study) - Telemetry EKG Rhythm: Sinus Rhythm - EKG Sinus rhythms and dysrhythmias: sinus rhythm - Allied health notes Allied health notes reviewed: nursing
--- NOTE | 2021-03-18 14:46 | Progress Note ---
Assessment and Plan Assessment: Acute kidney injury possibly 2/2 prerenal/ATN, no obstruction Hypertension Chronic HFpEF Elevated Troponin Vertigo Dementia Plan: Renal labs reviewed. Serum creatinine level was 1.3 today, yesterday's SCr level was 1.8 Baseline serum creatinine unknown Renal ultrasound reviewed showed 5mm non-obstruction left renal stone, no hydronephrosis Pt has discharge orders, pt will need to follow up with us in the office within 2 wks for further evaluation Urine lytes, protein and eosinophils pending Held HCTZ, Lisinopril, Spironolactone and Torsemide, monitor volume status closely Strict I/O's daily Renally dose medications Kendall Catheter: No Monitor renal function closely Renal plan reviewed by Dr Lieberman Subjective Date of service: 03/18/21 Principal diagnosis: Vertigo Interval history: Pt seen in bed, c/o right ankle itching, denies shortness of breath, nausea, or vomiting. Nurse at bedside, states she will apply cream to his right ankle for itching. Objective - Vital Signs Vital signs: Vital Signs - 12hr 03/18/21 03/18/21 03/18/21 04:26 07:37 07:38 Temperature 98.2 F 97.7 F Pulse Rate 59 L 52 L Pulse Rate [ Bilateral] Respiratory 18 17 Rate Respiratory Rate [Bilateral ] Blood Pressure 143/69 141/59 O2 Sat by Pulse 98 100 98 Oximetry 03/18/21 03/18/21 03/18/21 09:05 09:54 11:26 Temperature Pulse Rate 56 L 66 Pulse Rate [ 66 Bilateral] Respiratory Rate Respiratory 18 Rate [Bilateral ] Blood Pressure 149/71 O2 Sat by Pulse Oximetry 03/18/21 11:29 Temperature Pulse Rate 66 Pulse Rate [ Bilateral] Respiratory Rate Respiratory Rate [Bilateral ] Blood Pressure 149/71 O2 Sat by Pulse Oximetry - General Appearance General appearance: well-developed EENT: ATNC Neck: no JVD Respiratory: Present: Clear to Ascultation Cardiology: regular, S1S2 Gastrointestinal: normoactive bowel sounds, no tenderness Integumentary: warm and dry Neurologic: other (awake, oriented to person, place, but not year, follows simple commands) Musculoskeletal: other (no edema to BLE) Psychiatric: cooperative - Lab 03/17/21 04:39 03/18/21 09:25 Most recent lab results Calcium 8.4 mg/dL (8.4-10.2) 03/18/21 09:25 Phosphorus 3.70 mg/dL (2.5-4.5) 03/16/21 04:19 Magnesium 2.00 mg/dL (1.7-2.3) 03/09/21 18:06 Medications & Allergies - Medications Allergies/Adverse Reactions: Allergies No Known Allergies Allergy (Verified 03/09/21 21:41) Home Medications: Home Medications Medication Instructions Recorded Confirmed Last Taken Type AtorvaSTATin [Lipitor] 40 mg PO HS 03/10/21 03/10/21 Unknown History Thiamine HCl [Vitamin B-1] 100 mg PO DAILY 03/10/21 03/10/21 Unknown History Torsemide [Demadex] 20 mg PO DAILY 03/10/21 03/10/21 Unknown History carvediloL [Coreg] 12.5 mg PO BID 03/10/21 03/10/21 Unknown History lisinopriL [Zestril TAB] 40 mg PO QDAY 03/10/21 03/10/21 Unknown History Aspirin [Adult Aspirin] 81 mg PO DAILY 30 Days tablet. 03/18/21 Unknown Rx Active Medications: Generic Name Dose Route Start Last Admin Trade Name Freq PRN Reason Stop Dose Admin Acetaminophen 650 mg 03/09/21 23:53 Acetaminophen 325 Mg Tab PO Q4H PRN Pain MILD(1-3)/Fever >100.5/DOUGLAS Amlodipine Besylate 10 mg 03/12/21 11:00 03/18/21 11:26 Amlodipine 10 Mg Tab PO 10 mg DAILY ARMANDO Administration Aspirin 325 mg 03/10/21 10:00 03/18/21 11:30 Aspirin 325 Mg Tab PO 325 mg QDAY ARMANDO Administration Atorvastatin Calcium 40 mg 03/10/21 22:00 03/17/21 21:41 Atorvastatin 40 Mg Tab PO 40 mg QHS ARMANDO Administration Bisacodyl 10 mg 03/09/21 23:53 Bisacodyl 10 Mg Rect Supp [place] QDAY PRN Constipation Budesonide 0.5 mg 03/12/21 20:00 03/18/21 09:51 Budesonide 0.5 Mg/2 Ml Nebu IH 0.5 mg Q12HRT ARMANDO Administration Carvedilol 12.5 mg 03/14/21 10:00 03/18/21 11:29 Carvedilol 12.5 Mg Tab PO 12.5 mg BID ARMANDO Administration Ergocalciferol 50,000 unit 03/19/21 10:00 Ergocalciferol (Vit D2) 50,000 Unit Cap PO Sa RAMANDO Folic Acid 1 mg 03/12/21 11:00 03/18/21 11:30 Folic Acid 1 Mg Tab PO 1 mg QDAY ARMANDO Administration Heparin Sodium (Porcine) 5,000 unit 03/10/21 06:00 03/18/21 14:17 Heparin 5,000 Unit/1 Ml Vial SUB-Q 5,000 unit Q8HR ARMANDO Administration Hydralazine HCl 10 mg 03/09/21 23:58 03/12/21 23:29 Hydralazine 20 Mg/1 Ml Inj IV 10 mg Q4HR PRN Administration Blood Pressure Thiamine HCl 100 mg/ Sodium 51 mls @ 100 mls/hr 03/17/21 14:00 03/18/21 11:30 Chloride IV 03/19/21 23:59 100 mls/hr QDAY ARMANDO Administration Magnesium Hydroxide 30 ml 03/09/21 23:53 Magnesium Hydroxide (Mom) Oral Liqd Udc PO Q4H PRN Constipation Meclizine HCl 25 mg 03/11/21 10:00 Meclizine 25 Mg Tab PO Q8H PRN Vertigo Metoclopramide HCl 10 mg 03/09/21 23:53 Metoclopramide 10 Mg Tab PO Q6H PRN Nausea And Vomiting Morphine Sulfate 2 mg 03/09/21 23:53 Morphine 2 Mg/1 Ml Inj IV Q4H PRN Pain, Moderate (4-6) Morphine Sulfate 4 mg 03/09/21 23:53 Morphine 4 Mg/1 Ml Inj IV Q4H PRN Pain , Severe (7-10) Ondansetron HCl 4 mg 03/09/21 23:53 03/13/21 09:21 Ondansetron 4 Mg/2 Ml Inj IV 4 mg Q8H PRN Administration Nausea And Vomiting Promethazine HCl 25 mg 03/09/21 23:53 Promethazine 25 Mg Rect Supp [place] Q6H PRN Nausea And Vomiting Sodium Chloride 10 ml 03/10/21 10:00 03/18/21 11:31 Sodium Chloride 0.9% 10 Ml Flush Syringe IV 10 ml BID ARMANDO Administration Sodium Chloride 10 ml 03/09/21 23:53 Sodium Chloride 0.9% 10 Ml Flush Syringe IV PRN PRN LINE FLUSH Thiamine HCl 100 mg 03/12/21 11:00 03/18/21 11:30 Thiamine 100 Mg Tab PO 100 mg QDAY ARMANDO Administration
[2021-03-19] MEDS ORDERED: ERGOCALCIFEROL (VIT D2) 50,000 UNIT CAP PO SCH (10:00)
[2021-03-19] MEDS ORDERED: NON-FORMULARY EACH (Cholecalciferol (Vitamin D3) [Vitamin D3 50,000unit Cap] 1,250 MCG Cap PO SCH (10:00)
--- NOTE | 2021-04-04 10:28 | Event Note ---
Date: 04/04/21 Addendum to discharge diagnosis: Acute kidney injury due to ATN.
[2021-04-24 09:38] LABS: Vitamin D, 25-OH, D2 SEE SCANNED RESULT
== END 2021-03-18 22:18 | DRG 304 ==
LOC: ED 16:34 → 4A 23:04 → OBSVTOIN 03-10 16:18
PROVIDERS: ADMIT Internal Medicine Geriatric Medicine; ATTEND Internal Medicine
DX: I16.0 Hypertensive urgency (principal); N17.0 Acute kidney failure with tubular necrosis; I50.32 Chronic diastolic (congestive) heart failure; Z20.822 Contact with and (suspected) exposure to COVID-19; I11.0 Hypertensive heart disease with heart failure; F03.90 Unspecified dementia, unspecified severity, without behavioral disturbance, psychotic disturbance, mood disturbance, and anxiety; Z79.899 Other long term (current) drug therapy; R77.8 Other specified abnormalities of plasma proteins; R26.81 Unsteadiness on feet; E78.5 Hyperlipidemia, unspecified
CPT/HCPCS: 36415; 70450; 70496; 70498; 70551; 76770; 80048; 80053; 80061; 81001; 82140; 82306; 82607; 82747; 82962; 83519; 83735; 84100; 84134; 84425; 84443; 84484; 85025; 85027; 86592; 89050; 93005; 93306; 93880; 94640; 97129; 97130; G0378; J0360; J1644; J2405; J3411; Q9967; U0003

== ENCOUNTER 2021-09-03 00:04 | Inpatient (IN) | payer MEDICAID ==
[2021-09-03 00:47] LABS: Basophils # (Auto) 0.1 K/mm3 (0.0-0.1); Basophils % (Auto) 0.5 % (0.0-1.8); Eosinophils # (Auto) 0.3 K/mm3 (0.0-0.4); Eosinophils % (Auto) 2.9 % (0.0-4.3); Hematocrit 22.4 % (35.5-45.6); Hemoglobin 7.2 gm/dl (11.8-15.2); Lymphocytes # (Auto) 1.9 K/mm3 (1.2-5.4); Lymphocytes % (Auto) 17.6 % (13.4-35.0); Mean Corpuscular HGB Conc 32 % (32-34); Mean Corpuscular Volume 85 fl (84-94); Monocytes # (Auto) 1.3 K/mm3 (0.0-0.8); Monocytes % (Auto) 11.7 % (0.0-7.3); Platelet Count 419 K/mm3 (140-440); Red Blood Count 2.63 M/mm3 (3.65-5.03); Red Cell Distribution Width 14.2 % (13.2-15.2)
--- NOTE | 2021-09-03 01:21 | Emergency Department Report ---
ED General Adult HPI - General Chief complaint: Recheck/Abnormal Lab/Rx Stated complaint: LOW H&H Source: patient, EMS Mode of arrival: Stretcher Limitations: No Limitations - History of Present Illness Initial comments: This patient presents to the emergency department for evaluation of a low hemoglobin and hematocrit. The patient complained of a cough. He has a medical history of congestive heart failure, dementia and paranoid schizophrenia. The patient also has a history of nephrotic syndrome. He has been reported that the patient was experiencing weakness and excessive sleeping. He has been refusing to sit up or get out of bed. He was also notable decrease in p.o. intake. - Related Data Home Medications Medication Instructions Recorded Confirmed Last Taken AtorvaSTATin [Lipitor] 40 mg PO HS 03/10/21 09/03/21 Unknown Thiamine HCl [Vitamin B-1] 100 mg PO DAILY 03/10/21 09/03/21 Unknown Torsemide [Demadex] 20 mg PO DAILY 03/10/21 09/03/21 Unknown carvediloL [Coreg] 12.5 mg PO BID 03/10/21 09/03/21 Unknown lisinopriL [Zestril TAB] 40 mg PO QDAY 03/10/21 09/03/21 Unknown Previous Rx's Medication Instructions Recorded Last Taken Type Aspirin [Adult Aspirin] 81 mg PO DAILY #30 tablet. 03/18/21 Unknown Rx Benzonatate [Tessalon Perles] 100 mg PO Q8HR #14 cap 09/03/21 Unknown Rx Ferrous Sulfate [Ferrous Sulfate 324 mg PO QDAY #14 09/03/21 Unknown Rx 324 MG] Allergies Allergy/AdvReac Type Severity Reaction Status Date / Time No Known Allergies Allergy Verified 03/09/21 21:41 ED Review of Systems ROS: Stated complaint: LOW H&H Other details as noted in HPI Comment: All other systems reviewed and negative Constitutional: weakness Eyes: denies: eye pain, eye discharge, vision change ENT: denies: ear pain, throat pain Respiratory: cough (Ms. sounds productive). denies: shortness of breath Cardiovascular: denies: chest pain, palpitations, edema Endocrine: no symptoms reported Gastrointestinal: denies: abdominal pain, nausea, vomiting, diarrhea Genitourinary: denies: urgency, dysuria Musculoskeletal: denies: joint swelling, arthralgia, myalgia Skin: denies: rash, lesions Neurological: denies: headache Psychiatric: denies: anxiety, depression Hematological/Lymphatic: denies: easy bleeding ED Past Medical Hx - Past Medical History Previous Medical History?: Yes Hx Hypertension: Yes Hx Congestive Heart Failure: No Hx Diabetes: No Hx Asthma: No Hx COPD: No Hx Dementia: Yes - Surgical History Past Surgical History?: No - Social History Smoking Status: Never Smoker Substance Use Type: None - Medications Home Medications: Home Medications Medication Instructions Recorded Confirmed Last Taken Type AtorvaSTATin [Lipitor] 40 mg PO HS 03/10/21 09/03/21 Unknown History Thiamine HCl [Vitamin B-1] 100 mg PO DAILY 03/10/21 09/03/21 Unknown History Torsemide [Demadex] 20 mg PO DAILY 03/10/21 09/03/21 Unknown History carvediloL [Coreg] 12.5 mg PO BID 03/10/21 09/03/21 Unknown History lisinopriL [Zestril TAB] 40 mg PO QDAY 03/10/21 09/03/21 Unknown History Aspirin [Adult Aspirin] 81 mg PO DAILY #30 tablet.dr 03/18/21 09/03/21 Unknown Rx Benzonatate [Tessalon Perles] 100 mg PO Q8HR #14 cap 09/03/21 Unknown Rx Ferrous Sulfate [Ferrous Sulfate 324 mg PO QDAY #14 09/03/21 Unknown Rx 324 MG] ED Physical Exam - General Limitations: Other (The patient is a very poor conversationalist resulting in difficulty in extracting information) General appearance: alert (But slow to arouse) - Head Head exam: Present: atraumatic, normocephalic - Eye Eye exam: Present: normal appearance - ENT ENT exam: Present: normal exam, mucous membranes dry - Neck Neck exam: Present: normal inspection - Respiratory Respiratory exam: Present: normal lung sounds bilaterally. Absent: respiratory distress - Cardiovascular Cardiovascular Exam: Present: regular rate, normal rhythm - GI/Abdominal GI/Abdominal exam: Present: soft. Absent: distended, tenderness - Rectal Rectal exam: Present: deferred - Extremities Exam Extremities exam: Present: normal inspection. Absent: pedal edema - Back Exam Back exam: Present: normal inspection. Absent: CVA tenderness (R), CVA tenderness (L) - Neurological Exam Neurological exam: Present: alert - Psychiatric Psychiatric exam: Present: flat affect - Skin Skin exam: Present: warm, dry ED Course Vital Signs 09/03/21 09/03/21 09/03/21 00:07 00:32 00:46 Temperature 98 F Pulse Rate 100 H 68 64 Respiratory 18 20 17 Rate Blood Pressure 150/80 Blood Pressure [Left] O2 Sat by Pulse 100 97 98 Oximetry 09/03/21 09/03/21 09/03/21 01:00 01:16 01:30 Temperature Pulse Rate 65 65 63 Respiratory 17 23 18 Rate Blood Pressure Blood Pressure [Left] O2 Sat by Pulse 99 98 99 Oximetry 09/03/21 09/03/21 09/03/21 01:46 02:00 02:10 Temperature Pulse Rate 68 70 Respiratory 17 22 Rate Blood Pressure Blood Pressure 114/52 [Left] O2 Sat by Pulse 98 98 Oximetry 09/03/21 09/03/21 09/03/21 02:16 02:30 02:46 Temperature Pulse Rate 73 77 78 Respiratory 19 18 14 Rate Blood Pressure 114/52 140/69 140/69 Blood Pressure [Left] O2 Sat by Pulse 99 98 98 Oximetry 09/03/21 09/03/21 09/03/21 03:00 03:16 03:30 Temperature Pulse Rate 78 74 78 Respiratory 17 19 14 Rate Blood Pressure 151/71 151/71 160/78 Blood Pressure [Left] O2 Sat by Pulse 100 99 98 Oximetry 09/03/21 09/03/21 09/03/21 03:46 04:00 04:16 Temperature Pulse Rate 71 70 69 Respiratory 17 16 15 Rate Blood Pressure 160/78 135/72 135/72 Blood Pressure [Left] O2 Sat by Pulse 99 99 99 Oximetry 09/03/21 09/03/21 09/03/21 04:30 04:46 05:00 Temperature Pulse Rate 66 68 68 Respiratory 16 18 15 Rate Blood Pressure 135/67 135/67 135/67 Blood Pressure [Left] O2 Sat by Pulse 99 100 100 Oximetry 09/03/21 09/03/21 09/03/21 05:16 05:19 05:30 Temperature Pulse Rate 66 65 Respiratory 16 10 L Rate Blood Pressure 135/67 135/67 Blood Pressure [Left] O2 Sat by Pulse 100 98 100 Oximetry 09/03/21 09/03/21 09/03/21 05:46 06:00 06:16 Temperature Pulse Rate 65 64 65 Respiratory 15 14 14 Rate Blood Pressure 135/67 135/67 135/67 Blood Pressure [Left] O2 Sat by Pulse 100 100 100 Oximetry 09/03/21 09/03/21 09/03/21 06:30 06:40 06:50 Temperature Pulse Rate 69 72 69 Respiratory 16 20 10 L Rate Blood Pressure 135/67 135/67 135/67 Blood Pressure [Left] O2 Sat by Pulse 100 100 100 Oximetry 09/03/21 09/03/21 09/03/21 07:00 07:10 07:20 Temperature Pulse Rate 66 65 65 Respiratory 16 14 13 Rate Blood Pressure 135/67 135/67 135/67 Blood Pressure [Left] O2 Sat by Pulse 100 100 100 Oximetry 09/03/21 09/03/21 09/03/21 07:30 07:40 07:50 Temperature Pulse Rate 64 64 64 Respiratory 14 14 10 L Rate Blood Pressure 135/67 135/67 135/67 Blood Pressure [Left] O2 Sat by Pulse 98 99 99 Oximetry 09/03/21 08:00 Temperature Pulse Rate 64 Respiratory 14 Rate Blood Pressure 135/67 Blood Pressure [Left] O2 Sat by Pulse 99 Oximetry ED Medical Decision Making - Lab Data Result diagrams: 09/04/21 06:50 09/04/21 06:50 Consistent with anemia which is moderate. The BUN and creatinine are consistent with dehydration and chronic renal failure - Radiology Data Radiology results: report reviewed, image reviewed There were no significant findings - Medical Decision Making I briefly spoke with the hospitalist about this patient. He agreed to admit the patient for further evaluation and hydration Critical care attestation.: If time is entered above; I have spent that time in minutes in the direct care of this critically ill patient, excluding procedure time. ED Disposition Clinical Impression: Dehydration, HEIDE (acute kidney injury) Anemia Qualifiers: Anemia type: iron deficiency Iron deficiency anemia type: unspecified iron deficiency Qualified Code(s): D50.9 - Iron deficiency anemia, unspecified Disposition: 09 ADMITTED INPATIENT Is pt being admited?: Yes Condition: Stable
[2021-09-03] MEDS ORDERED: SODIUM CHLORIDE 0.9% 1000 ML 1,000 ML IV ONE (01:23)
[2021-09-03 02:28] LABS: Alanine Aminotransferase 30 units/L (7-56); Albumin 2.4 g/dL (3.9-5); BUN/Creatinine Ratio 44; Blood Urea Nitrogen 61 mg/dL (9-20); Calcium 7.9 mg/dL (8.4-10.2); Hemolysis Index 0
[2021-09-03] MEDS ORDERED: ACETAMINOPHEN 325 MG TAB PO PRN (05:54)
[2021-09-03] MEDS ORDERED: HYDROmorphone 1 MG/1 ML INJ IV PRN (05:54)
[2021-09-03] MEDS ORDERED: ALBUTEROL 2.5 MG/3 ML NEBU IH PRN (05:54)
[2021-09-03] MEDS ORDERED: MORPHINE 2 MG/1 ML INJ IV PRN (05:54)
[2021-09-03] MEDS ORDERED: ONDANSETRON 4 MG/2 ML INJ IV PRN (05:54)
[2021-09-03 05:58] LABS: Alanine Aminotransferase 27 units/L (7-56); Albumin 2.4 g/dL (3.9-5); BUN/Creatinine Ratio 49; Blood Urea Nitrogen 59 mg/dL (9-20); Calcium 7.7 mg/dL (8.4-10.2); Hemolysis Index 0
[2021-09-03] MEDS ORDERED: guaiFENesin DM 200/20 MG ORAL LIQD 10 ML PO PRN (06:03)
--- NOTE | 2021-09-03 06:09 | History and Physical Report ---
History of Present Illness Date of examination: 09/03/21 Date of admission: 09/03/21 Chief complaint: Coughing Weakness History of present illness: 56 years old male with history of congestive heart failure, dementia and paranoid schizophreniaand nephrotic syndrome was brought to the emergency room because of coughing and low hemoglobin and hematocrit. He has been reported that the patient was experiencing weakness and excessive sleeping. He has been refusing to sit up or get out of bed. He was also notable decrease in p.o. intake. In the emergency room patient is found to have a hemoglobin of 7.2, hematocrit 22.4 BUN of 61 and creatinine 1.4. Patient is on Demadex. Still going to admit the patient will consult nephrology for evaluation Past History Past Medical History: heart failure, hypertension, renal failure, other (Dementia and paranoid schizophrenia) Past Surgical History: No surgical history Social history: other (No smoke) Family history: no significant family history Medications and Allergies Allergies Allergy/AdvReac Type Severity Reaction Status Date / Time No Known Allergies Allergy Verified 03/09/21 21:41 Home Medications Medication Instructions Recorded Confirmed Last Taken Type AtorvaSTATin [Lipitor] 40 mg PO HS 03/10/21 03/10/21 Unknown History Thiamine HCl [Vitamin B-1] 100 mg PO DAILY 03/10/21 03/10/21 Unknown History Torsemide [Demadex] 20 mg PO DAILY 03/10/21 03/10/21 Unknown History carvediloL [Coreg] 12.5 mg PO BID 03/10/21 03/10/21 Unknown History lisinopriL [Zestril TAB] 40 mg PO QDAY 03/10/21 03/10/21 Unknown History Aspirin [Adult Aspirin] 81 mg PO DAILY #30 tablet. 03/18/21 Unknown Rx Benzonatate [Tessalon Perles] 100 mg PO Q8HR #14 cap 09/03/21 Unknown Rx Ferrous Sulfate [Ferrous Sulfate 324 mg PO QDAY #14 09/03/21 Unknown Rx 324 MG] Active Meds: Active Medications Acetaminophen (Acetaminophen 325 Mg Tab) 650 mg PO Q4H PRN PRN Reason: Pain MILD(1-3)/Fever >100.5/DOUGLAS Albuterol (Albuterol 2.5 Mg/3 Ml Nebu) 2.5 mg IH Q3HRT PRN PRN Reason: Shortness Of Breath Albuterol/Ipratropium (Ipratropium/Albuterol Sulfate 3 Ml Ampul.Neb) 1 ampul IH Q6HRT [facility] Aspirin (Aspirin Ec 81 Mg Tab) 81 mg PO DAILY [facility] Atorvastatin Calcium (Atorvastatin 40 Mg Tab) 40 mg PO HS [facility] Carvedilol (Carvedilol 12.5 Mg Tab) 12.5 mg PO BID [facility] Famotidine (Famotidine 20 Mg Tab) 20 mg PO BID [facility] Ferrous Sulfate (Ferrous Sulfate 325 Mg Tab) 325 mg PO BID [facility] Guaifenesin (Guaifenesin Dm 200/20 Mg Oral Liqd 10 Ml) 10 ml PO Q4H PRN PRN Reason: Cough Hydromorphone HCl (Hydromorphone 1 Mg/1 Ml Inj) 0.5 mg IV Q3H PRN PRN Reason: Pain , Severe (7-10) Sodium Chloride (Nacl 0.9% 1000 Ml) 1,000 mls @ 125 mls/hr IV ONCE ONE Stop: 09/03/21 09:22 Last Admin: 09/03/21 02:09 Dose: 125 mls/hr Lisinopril (Lisinopril 40 Mg Tab) 40 mg PO QDAY [facility] Miscellaneous Medication (Thiamine Hcl [Vitamin B-1]) 100 mg PO DAILY [facility] Morphine Sulfate (Morphine 2 Mg/1 Ml Inj) 2 mg IV Q4H PRN PRN Reason: Pain, Moderate (4-6) Ondansetron HCl (Ondansetron 4 Mg/2 Ml Inj) 4 mg IV Q8H PRN PRN Reason: Nausea And Vomiting Sodium Chloride (Sodium Chloride 0.9% 10 Ml Flush Syringe) 10 ml IV BID [facility] Sodium Chloride (Sodium Chloride 0.9% 10 Ml Flush Syringe) 10 ml IV PRN PRN PRN Reason: LINE FLUSH Review of Systems Constitutional: fatigue, weakness, malaise Cardiovascular: shortness of breath Respiratory: cough, shortness of breath Exam - Constitutional Vitals: Temp Pulse Resp BP Pulse Ox 98 F 68 18 135/67 98 09/03/21 00:07 09/03/21 04:46 09/03/21 04:46 09/03/21 04:46 09/03/21 05:19 General appearance: Present: no acute distress, well-nourished - EENT Eyes: Present: PERRL ENT: hearing intact, clear oral mucosa - Neck Neck: Present: supple, normal ROM - Respiratory Respiratory effort: normal Respiratory: bilateral: diminished - Cardiovascular Heart Sounds: Present: S1 & S2. Absent: rub, click - Extremities Extremities: pulses symmetrical, No edema Peripheral Pulses: within normal limits - Abdominal General gastrointestinal: Present: soft, non-tender, non-distended, normal bowel sounds Male genitourinary: Present: normal - Integumentary Integumentary: Present: clear, warm, dry - Musculoskeletal Musculoskeletal: gait normal, strength equal bilaterally - Psychiatric Psychiatric: appropriate mood/affect, intact judgment & insight - Neurologic Neurologic: CNII-XII intact, moves all extremities Results - Labs CBC & Chem 7: 09/03/21 00:29 09/03/21 05:24 Labs: Laboratory Last Values WBC 10.8 K/mm3 (4.5-11.0) 09/03/21 00: RBC 2.63 M/mm3 (3.65-5.03) L 09/03/21 00: Hgb 7.2 gm/dl (11.8-15.2) L 09/03/21 00:29 Hct 22.4 % (35.5-45.6) L 09/03/21 00:29 MCV 85 fl (84-94) 09/03/21 00: MCH 27 pg (28-32) L 09/03/21 00:29 MCHC 32 % (32-34) 09/03/21 00: RDW 14.2 % (13.2-15.2) 09/03/21 00: Plt Count 419 K/mm3 (140-440) 09/03/21 00: Lymph % (Auto) 17.6 % (13.4-35.0) 09/03/21 00: [place] % (Auto) 11.7 % (0.0-7.3) H 09/03/21 00: Eos % (Auto) 2.9 % (0.0-4.3) 09/03/21 00: Baso % (Auto) 0.5 % (0.0-1.8) 09/03/21 00: Lymph # (Auto) 1.9 K/mm3 (1.2-5.4) 09/03/21 00:29 [place] # (Auto) 1.3 K/mm3 (0.0-0.8) H 09/03/21 00:29 Eos # (Auto) 0.3 K/mm3 (0.0-0.4) 09/03/21 00:29 Baso # (Auto) 0.1 K/mm3 (0.0-0.1) 09/03/21 00:29 Seg Neutrophils % 67.3 % (40.0-70.0) 09/03/21 00:29 Seg Neutrophils # 7.3 K/mm3 (1.8-7.7) 09/03/21 00:29 Sodium 132 mmol/L (137-145) L 09/03/21 05:24 Potassium 4.0 mmol/L (3.6-5.0) 09/03/21 05:24 Chloride 100.8 mmol/L (98-107) 09/03/21 05:24 Carbon Dioxide 19 mmol/L (22-30) L 09/03/21 05:24 Anion Gap 16 mmol/L 09/03/21 05:24 BUN 59 mg/dL (9-20) H 09/03/21 05:24 Creatinine 1.2 mg/dL (0.8-1.3) 09/03/21 05:24 Estimated GFR > 60 ml/min 09/03/21 05:24 BUN/Creatinine Ratio 49 % 09/03/21 05:24 Glucose 152 mg/dL (75-100) H 09/03/21 05:24 Lactic Acid 0.90 mmol/L (0.7-2.0) 09/03/21 05:24 Calcium 7.7 mg/dL (8.4-10.2) L 09/03/21 05:24 Total Bilirubin 0.20 mg/dL (0.1-1.2) 09/03/21 05:24 AST 34 units/L (5-40) 09/03/21 05:24 ALT 27 units/L (7-56) 09/03/21 05:24 Alkaline Phosphatase 123 units/L (35-129) 09/03/21 05:24 Total Protein 6.0 g/dL (6.3-8.2) L 09/03/21 05:24 Albumin 2.4 g/dL (3.9-5) L 09/03/21 05:24 Albumin/Globulin Ratio 0.7 % 09/03/21 05:24 Blood Type O POSITIVE 09/03/21 01:38 Antibody Screen Negative 09/03/21 01:38 - Imaging and Cardiology Chest x-ray: pending Assessment and Plan VTE prophylaxis?: Mechanical Plan of care discussed with patient/family: Yes - Patient Problems (1) HEIDE (acute kidney injury) Current Visit: No Status: Acute Plan to address problem: Admit the patient to the medical floor. Cardiac diet. Avoid nephrotoxic drug. Renally dose medication. We will hold the Demadex. Will consult nephrology for evaluation. Recheck BMP in the (2) Anemia Current Visit: Yes Status: Acute Qualifiers: Anemia type: iron deficiency Plan to address problem: Iron tablet 325 p.o. twice daily. Anemia most likely secondary to chronic kidney disease. Nephrology evaluation. Recheck CBC in the morning (3) Bronchitis Current Visit: Yes Status: Acute Plan to address problem: Oxygen via nasal catheter per minute. DuoNeb by nebulizer every 4 hours. Albuterol via nebulizer every 4 hours as needed. Robitussin-DM 10 mL p.o. 4 times daily as needed. (4) Chronic heart failure with preserved ejection fraction (HFpEF) Current Visit: No Status: Chronic Plan to address problem: Fluid restriction. Maintain input output. Daily weight. Continue home medication (5) HTN (hypertension) Current Visit: No Status: Chronic Qualifiers: Hypertension type: primary hypertension Qualified Code(s): I10 - Essential (primary) hypertension Plan to address problem: Coreg 12.5 mg p.o. twice daily. Lisinopril 40 mg p.o. daily (6) Paranoid personality disorder Current Visit: No Status: Chronic Plan to address problem: Stable. We will continue the home medication (7) DVT prophylaxis Current Visit: No Status: Acute Plan to address problem: SCD for DVT prophylaxis. Pepcid 20 mg p.o. twice daily for GI prophylaxis. Patient is a full code
--- NOTE | 2021-09-03 07:31 | Progress Note ---
Assessment and Plan - Patient Problems (1) HEIDE (acute kidney injury) Current Visit: No Status: Acute Plan to address problem: Admit the patient to the medical floor. Cardiac diet. Avoid nephrotoxic drug. Renally dose medication. We will hold the Demadex. Significant improvement after discontinuation of Demadex. Clearly has prerenal component. Follow-up chemistry in a.m. Will treat pruritus with Atarax. (2) Anemia Current Visit: Yes Status: Acute Qualifiers: Anemia type: iron deficiency Plan to address problem: Iron tablet 325 p.o. twice daily. Anemia most likely secondary to chronic kidney disease. Nephrology evaluation. Recheck CBC in the morning Much improved. Continue iron. (3) Bronchitis Current Visit: Yes Status: Acute Plan to address problem: Oxygen via nasal catheter per minute. DuoNeb by nebulizer every 4 hours. Albuterol via nebulizer every 4 hours as needed. Robitussin-DM 10 mL p.o. 4 times daily as needed. No further wheezing. No shortness of breath no dyspnea (4) Chronic heart failure with preserved ejection fraction (HFpEF) Current Visit: No Status: Chronic Plan to address problem: Fluid restriction. Maintain input output. Daily weight. Continue home medication Currently well compensated diuretics, beta-blockers (5) HTN (hypertension) Current Visit: No Status: Chronic Qualifiers: Hypertension type: primary hypertension Qualified Code(s): I10 - Essential (primary) hypertension Plan to address problem: Coreg 12.5 mg p.o. twice daily. Lisinopril 40 mg p.o. daily (6) Paranoid personality disorder Current Visit: No Status: Chronic Plan to address problem: Stable. We will continue the home medication (7) DVT prophylaxis Current Visit: No Status: Acute Plan to address problem: SCD for DVT prophylaxis. Pepcid 20 mg p.o. twice daily for GI prophylaxis. Patient is a full code Subjective Date of service: 09/03/21 Principal diagnosis: heide, anemia Interval history: 56 years old male with history of congestive heart failure, dementia and paranoid schizophreniaand nephrotic syndrome was brought to the emergency room because of coughing and low hemoglobin and hematocrit. He has been reported that the patient was experiencing weakness and excessive sleeping. He has been refusing to sit up or get out of bed. He was also notable decrease in p.o. i ntake. Patient now laying with cover over his head. Did complain of pruritus and itching all over. No other concerns overnight. Objective - Constitutional Vitals: Vital Signs - 12hr 09/03/21 09/03/21 09/03/21 00:07 00:32 00:46 Temperature 98 F Pulse Rate 100 H 68 64 Respiratory 18 20 17 Rate Blood Pressure 150/80 Blood Pressure [Left] O2 Sat by Pulse 100 97 98 Oximetry 09/03/21 09/03/21 09/03/21 01:00 01:16 01:30 Temperature Pulse Rate 65 65 63 Respiratory 17 23 18 Rate Blood Pressure Blood Pressure [Left] O2 Sat by Pulse 99 98 99 Oximetry 09/03/21 09/03/21 09/03/21 01:46 02:00 02:10 Temperature Pulse Rate 68 70 Respiratory 17 22 Rate Blood Pressure Blood Pressure 114/52 [Left] O2 Sat by Pulse 98 98 Oximetry 09/03/21 09/03/21 09/03/21 02:16 02:30 02:46 Temperature Pulse Rate 73 77 78 Respiratory 19 18 14 Rate Blood Pressure 114/52 140/69 140/69 Blood Pressure [Left] O2 Sat by Pulse 99 98 98 Oximetry 09/03/21 09/03/21 09/03/21 03:00 03:16 03:30 Temperature Pulse Rate 78 74 78 Respiratory 17 19 14 Rate Blood Pressure 151/71 151/71 160/78 Blood Pressure [Left] O2 Sat by Pulse 100 99 98 Oximetry 09/03/21 09/03/21 09/03/21 03:46 04:00 04:16 Temperature Pulse Rate 71 70 69 Respiratory 17 16 15 Rate Blood Pressure 160/78 135/72 135/72 Blood Pressure [Left] O2 Sat by Pulse 99 99 99 Oximetry 09/03/21 09/03/21 09/03/21 04:30 04:46 05:00 Temperature Pulse Rate 66 68 68 Respiratory 16 18 15 Rate Blood Pressure 135/67 135/67 135/67 Blood Pressure [Left] O2 Sat by Pulse 99 100 100 Oximetry 09/03/21 09/03/21 09/03/21 05:16 05:19 05:30 Temperature Pulse Rate 66 65 Respiratory 16 10 L Rate Blood Pressure 135/67 135/67 Blood Pressure [Left] O2 Sat by Pulse 100 98 100 Oximetry 03/26/22 03/26/22 03/26/22 05:46 06:00 06:16 Temperature Pulse Rate 65 64 65 Respiratory 15 14 14 Rate Blood Pressure 135/67 135/67 135/67 Blood Pressure [Left] O2 Sat by Pulse 100 100 100 Oximetry General appearance: Present: no acute distress, well-nourished - EENT Eyes: PERRL, EOM intact ENT: hearing intact, clear oral mucosa Ears: bilateral: normal - Neck Neck: supple, normal ROM - Respiratory Respiratory effort: normal Respiratory: bilateral: CTA - Breasts Breasts: normal - Cardiovascular Rhythm: regular Heart Sounds: Present: S1 & S2. Absent: gallop, rub Extremities: pulses intact, No edema, normal color, Full ROM - Gastrointestinal General gastrointestinal: Present: soft, non-tender, non-distended, normal bowel sounds - Genitourinary Male genitourinary: normal - Integumentary Integumentary: clear, warm, dry - Musculoskeletal Musculoskeletal: 1, strength equal bilaterally - Neurologic Neurologic: moves all extremities, other - Psychiatric Psychiatric: other (Poor cognition. Dementia) - Labs CBC & Chem 7: 09/03/21 00:29 09/03/21 05:24 Labs: Abnormal lab results 09/03/21 09/03/21 09/03/21 Range/Units 00:29 01:38 05:24 RBC 2.63 L (3.65-5.03) M/mm3 Hgb 7.2 L (11.8-15.2) gm/dl Hct 22.4 L (35.5-45.6) % MCH 27 L (28-32) pg [place] % (Auto) 11.7 H (0.0-7.3) % [place] # (Auto) 1.3 H (0.0-0.8) K/mm3 Sodium 134 L 132 L (137-145) mmol/L Chloride 96.7 L (98-107) mmol/L Carbon Dioxide 19 L (22-30) mmol/L BUN 61 H 59 H (9-20) mg/dL Creatinine 1.4 H (0.8-1.3) mg/dL Glucose 167 H 152 H (75-100) mg/dL Calcium 7.9 L 7.7 L (8.4-10.2) mg/dL Alkaline Phosphatase 138 H (35-129) units/L Total Protein 6.0 L (6.3-8.2) g/dL Albumin 2.4 L 2.4 L (3.9-5) g/dL
[2021-09-03] MEDS: IPRATROPIUM/ALBUTEROL SULFATE 3 ML AMPUL.NEB IH SCH ×3 (08:30→19:37)
[2021-09-03] MEDS: carvediloL 12.5 MG TAB PO SCH ×2 (09:14→22:03)
[2021-09-03] MEDS: ASPIRIN EC 81 MG TAB PO SCH (09:14)
[2021-09-03] MEDS: LISINOPRIL 40 MG TAB PO SCH (09:14)
[2021-09-03] MEDS: THIAMINE 100 MG TAB PO SCH (09:15)
[2021-09-03] MEDS: FERROUS SULFATE 325 MG TAB PO SCH ×2 (09:15→22:03)
[2021-09-03] MEDS: FAMOTIDINE 20 MG TAB PO SCH ×2 (09:15→22:03)
--- NOTE | 2021-09-03 09:58 | Consultation ---
<ZULMA PUGH - Last Filed: 09/03/21 13:22> Medications and Allergies Allergies Allergy/AdvReac Type Severity Reaction Status Date / Time No Known Allergies Allergy Verified 03/09/21 21:41 Home Medications Medication Instructions Recorded Confirmed Last Taken Type AtorvaSTATin [Lipitor] 40 mg PO HS 03/10/21 03/10/21 Unknown History Thiamine HCl [Vitamin B-1] 100 mg PO DAILY 03/10/21 03/10/21 Unknown History Torsemide [Demadex] 20 mg PO DAILY 03/10/21 03/10/21 Unknown History carvediloL [Coreg] 12.5 mg PO BID 03/10/21 03/10/21 Unknown History lisinopriL [Zestril TAB] 40 mg PO QDAY 03/10/21 03/10/21 Unknown History Aspirin [Adult Aspirin] 81 mg PO DAILY #30 tablet. 03/18/21 Unknown Rx Benzonatate [Tessalon Perles] 100 mg PO Q8HR #14 cap 09/03/21 Unknown Rx Ferrous Sulfate [Ferrous Sulfate 324 mg PO QDAY #14 09/03/21 Unknown Rx 324 MG] Active Meds: Active Medications Acetaminophen (Acetaminophen 325 Mg Tab) 650 mg PO Q4H PRN PRN Reason: Pain MILD(1-3)/Fever >100.5/DOUGLAS Albuterol (Albuterol 2.5 Mg/3 Ml Nebu) 2.5 mg IH Q3HRT PRN PRN Reason: Shortness Of Breath Albuterol/Ipratropium (Ipratropium/Albuterol Sulfate 3 Ml Ampul.Neb) 1 ampul IH Q6HRT [facility] Last Admin: 09/03/21 08:30 Dose: Not Given Aspirin (Aspirin Ec 81 Mg Tab) 81 mg PO DAILY [facility] Last Admin: 09/03/21 09:14 Dose: 81 mg Atorvastatin Calcium (Atorvastatin 40 Mg Tab) 40 mg PO [facility] Carvedilol (Carvedilol 12.5 Mg Tab) 12.5 mg PO BID [facility] Last Admin: 09/03/21 09:14 Dose: 12.5 mg Famotidine (Famotidine 20 Mg Tab) 20 mg PO BID [facility] Last Admin: 09/03/21 09:15 Dose: 20 mg Ferrous Sulfate (Ferrous Sulfate 325 Mg Tab) 325 mg PO BID [facility] Last Admin: 09/03/21 09:15 Dose: 325 mg Guaifenesin (Guaifenesin Dm 200/20 Mg Oral Liqd 10 Ml) 10 ml PO Q4H PRN PRN Reason: Cough Last Admin: 09/03/21 09:14 Dose: 10 ml Hydromorphone HCl (Hydromorphone 1 Mg/1 Ml Inj) 0.5 mg IV Q3H PRN PRN Reason: Pain , Severe (7-10) Hydroxyzine HCl (Hydroxyzine Hcl 25 Mg Tab) 25 mg PO Q6H PRN PRN Reason: Itching Lisinopril (Lisinopril 40 Mg Tab) 40 mg PO QDAY [facility] Last Admin: 09/03/21 09:14 Dose: 40 mg Morphine Sulfate (Morphine 2 Mg/1 Ml Inj) 2 mg IV Q4H PRN PRN Reason: Pain, Moderate (4-6) Ondansetron HCl (Ondansetron 4 Mg/2 Ml Inj) 4 mg IV Q8H PRN PRN Reason: Nausea And Vomiting Sodium Chloride (Sodium Chloride 0.9% 10 Ml Flush Syringe) 10 ml IV BID [facility] Last Admin: 09/03/21 09:15 Dose: 10 ml Sodium Chloride (Sodium Chloride 0.9% 10 Ml Flush Syringe) 10 ml IV PRN PRN PRN Reason: LINE FLUSH Thiamine HCl (Thiamine 100 Mg Tab) 100 mg PO QDAY [facility] Last Admin: 09/03/21 09:15 Dose: 100 mg Exam - Vital Signs Vital signs: Vital Signs Temp Pulse Resp BP Pulse Ox 98 F 100 H 18 150/80 100 09/03/21 00:07 09/03/21 00:07 09/03/21 00:07 09/03/21 00:07 09/03/21 00:07 Results - Lab Results 09/03/21 00:29 09/03/21 05:24 Most recent lab results Calcium 7.7 mg/dL (8.4-10.2) L 09/03/21 05:24 <ELLY SANCHEZ - Last Filed: 09/03/21 16:21> History of Present Illness - Reason for Consult Consult date: 09/03/21 acute renal failure, chronic renal failure - History of Present Illness 56 years old male with history of congestive heart failure, dementia and paranoid schizophrenia and nephrotic syndrome admitted with cough and low hg. Pt has also had dec PO intake, weakness and excessive sleeping. ROS: As in HPI otherwise 12 point review of systems -ve Past History Past Medical History: heart failure, hypertension, renal failure, other (Dementia and paranoid schizophrenia) Past Surgical History: No surgical history Social history: other (No smoke) Family history: no significant family history Medications and Allergies Active Meds: Active Medications Acetaminophen (Acetaminophen 325 Mg Tab) 650 mg PO Q4H PRN PRN Reason: Pain MILD(1-3)/Fever >100.5/DOUGLAS Albuterol (Albuterol 2.5 Mg/3 Ml Nebu) 2.5 mg IH Q3HRT PRN PRN Reason: Shortness Of Breath Albuterol/Ipratropium (Ipratropium/Albuterol Sulfate 3 Ml Ampul.Neb) 1 ampul IH Q6HRT [facility] Aspirin (Aspirin Ec 81 Mg Tab) 81 mg PO DAILY [facility] Last Admin: 09/03/21 09:14 Dose: 81 mg Atorvastatin Calcium (Atorvastatin 40 Mg Tab) 40 mg PO HS [facility] Carvedilol (Carvedilol 12.5 Mg Tab) 12.5 mg PO BID [facility] Last Admin: 09/03/21 09:14 Dose: 12.5 mg Famotidine (Famotidine 20 Mg Tab) 20 mg PO BID [facility] Last Admin: 09/03/21 09:15 Dose: 20 mg Ferrous Sulfate (Ferrous Sulfate 325 Mg Tab) 325 mg PO BID [facility] Last Admin: 09/03/21 09:15 Dose: 325 mg Guaifenesin (Guaifenesin Dm 200/20 Mg Oral Liqd 10 Ml) 10 ml PO Q4H PRN PRN Reason: Cough Last Admin: 09/03/21 09:14 Dose: 10 ml Hydromorphone HCl (Hydromorphone 1 Mg/1 Ml Inj) 0.5 mg IV Q3H PRN PRN Reason: Pain , Severe (7-10) Lisinopril (Lisinopril 40 Mg Tab) 40 mg PO QDAY [facility] Last Admin: 09/03/21 09:14 Dose: 40 mg Morphine Sulfate (Morphine 2 Mg/1 Ml Inj) 2 mg IV Q4H PRN PRN Reason: Pain, Moderate (4-6) Ondansetron HCl (Ondansetron 4 Mg/2 Ml Inj) 4 mg IV Q8H PRN PRN Reason: Nausea And Vomiting Sodium Chloride (Sodium Chloride 0.9% 10 Ml Flush Syringe) 10 ml IV BID [facility] Last Admin: 09/03/21 09:15 Dose: 10 ml Sodium Chloride (Sodium Chloride 0.9% 10 Ml Flush Syringe) 10 ml IV PRN PRN PRN Reason: LINE FLUSH Thiamine HCl (Thiamine 100 Mg Tab) 100 mg PO QDAY [facility] Last Admin: 09/03/21 09:15 Dose: 100 mg Exam - Vital Signs Vital signs: Vital Signs Temp Pulse Resp BP Pulse Ox 98 F 100 H 18 150/80 100 09/03/21 00:07 09/03/21 00:07 09/03/21 00:07 09/03/21 00:07 09/03/21 00:07 - Physical Exam Narrative exam: General appearance: Present: no acute distress, well-nourished - EENT Eyes: Present: PERRL ENT: hearing intact, clear oral mucosa - Neck Neck: Present: supple, normal ROM - Respiratory Respiratory effort: normal Respiratory: bilateral: diminished - Cardiovascular Heart Sounds: Present: S1 & S2. Absent: rub, click - Extremities Extremities: pulses symmetrical, No edema Peripheral Pulses: within normal limits - Abdominal General gastrointestinal: Present: soft, non-tender, non-distended, normal bowel sounds Male genitourinary: Present: normal - Integumentary Integumentary: Present: clear, warm, dry - Musculoskeletal Musculoskeletal: gait normal, strength equal bilaterally - Psychiatric Psychiatric: appropriate mood/affect, intact judgment & insight - Neurologic Neurologic: CNII-XII intact, moves all extremities Results - Lab Results 09/03/21 00:29 09/03/21 05:24 Most recent lab results Calcium 7.7 mg/dL (8.4-10.2) L 09/03/21 05:24 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
[2021-09-03] MEDS ORDERED: NON-FORMULARY EACH (Thiamine Hcl [Vitamin B-1] 100 MG Tablet) PO SCH (10:00)
[2021-09-03] MEDS ORDERED: hydrOXYzine HCL 25 MG TAB PO PRN (10:09)
--- NOTE | 2021-09-03 11:32 | XRay Report ---
CHEST 1 VIEW INDICATION / CLINICAL INFORMATION: Cough. COMPARISON: None available. FINDINGS: SUPPORT DEVICES: None. HEART / MEDIASTINUM: No significant abnormality. LUNGS / PLEURA: The lungs are clear. No pneumothorax. ADDITIONAL FINDINGS: No significant additional findings. IMPRESSION: 1. No active cardiopulmonary disease. Signer Name: Elgin Mccormack II, MD Signed: 09/03/2021 6:23 AM Workstation Name: [id number]
[2021-09-03 19:41] LABS: Bacteria,Urine 1+ /HPF (Negative); Bilirubin,Urine NEG (Negative); Blood,Urine SM (Negative); Color,Urine Amber (Yellow); Mucus,Urine 1+ /HPF; Urobilinogen,Urine < 2.0 mg/dL (<2.0)
[2021-09-03 19:54] LABS: Protein,Urine >500 mg/dL (Negative)
[2021-09-03 20:31] LABS: Creatinine,Urine 51.9 mg/dL (0.1-20.0)
[2021-09-03 20:53] LABS: Protein/Creatinine Ratio,Urine 7.92
[2021-09-03 22:22] LABS: Iron 12 ug/dL (49-181); Total Iron Binding Capacity 96 mcg/dL (250-450)
[2021-09-04 07:46] LABS: Basophils # (Auto) 0.1 K/mm3 (0.0-0.1); Basophils % (Auto) 0.4 % (0.0-1.8); Eosinophils # (Auto) 0.3 K/mm3 (0.0-0.4); Eosinophils % (Auto) 2.4 % (0.0-4.3); Hematocrit 22.4 % (35.5-45.6); Lymphocytes # (Auto) 2.2 K/mm3 (1.2-5.4); Lymphocytes % (Auto) 17.1 % (13.4-35.0); Mean Corpuscular HGB Conc 31 % (32-34); Mean Corpuscular Volume 85 fl (84-94); Monocytes # (Auto) 1.4 K/mm3 (0.0-0.8); Monocytes % (Auto) 11.2 % (0.0-7.3); Platelet Count 450 K/mm3 (140-440); Red Blood Count 2.63 M/mm3 (3.65-5.03); Red Cell Distribution Width 14.5 % (13.2-15.2)
[2021-09-04 07:55] LABS: BUN/Creatinine Ratio 40; Blood Urea Nitrogen 52 mg/dL (9-20); Hemolysis Index 0
[2021-09-04] MEDS ORDERED: CALCIUM GLUCONATE 2,000 MG in SODIUM CHLORIDE 0.9% 100 ML IV ONE (08:37)
--- NOTE | 2021-09-04 08:46 | Progress Note ---
Assessment and Plan Assessment and plan: #HEIDE on CKD stage IIIresolved -Creatinine 1.3 (baseline unknown) Nephrology consulted; appreciate recs Renally dose medications and avoid nephrotoxic drugs. Continue to monitor #Iron deficiency anemia Hemoglobin 7.0 -Iron 12, TIBC 96 Starting IV iron infusion daily x2 doses given patient's significant iron deficiency. Patient will need to follow-up in outpatient setting with gastroenterology for possible colonoscopy. Transfuse if hemoglobin less than 7 or patient becomes symptomatic. #Bronchitis Continue DuoNeb by nebulizer every 4 hours. Albuterol via nebulizer every 4 hours as needed. Robitussin-DM 10 mL p.o. 4 times daily as needed. #Chronic heart failure with preserved ejection fraction (HFpEF) stable Continue fluid restriction, maintain input output, daily weight, and continue home medication Currently well compensated diuretics, beta-blockers #HTN (hypertension) Continue Coreg 12.5 mg p.o. twice daily. Lisinopril 40 mg p.o. daily #Paranoid personality disorder continue the home medication #Advanced care planning -Disease education conducted, care plan discussed, diagnoses discussed, p rognosis discussed, and patient acknowledges understanding with care plan -Time: +30 min Disposition Plan: Continue medical management Total Time Spent with Patient (Minutes): 30 min History Interval history: No acute events overnight. Hospitalist Physical - Constitutional Vitals: Temp Pulse Resp BP Pulse Ox 97.5 F L 78 18 142/60 99 09/04/21 04:06 09/04/21 04:06 09/04/21 04:06 09/04/21 04:06 09/04/21 04:06 General appearance: Present: no acute distress, well-nourished - EENT Eyes: Present: PERRL, EOM intact ENT: hearing intact, clear oral mucosa - Neck Neck: Present: supple, normal ROM - Respiratory Respiratory effort: normal Respiratory: bilateral: CTA - Cardiovascular Rhythm: regular Heart Sounds: Present: S1 & S2 - Extremities Extremities: no ischemia, pulses intact, pulses symmetrical, No edema, normal te mperature, normal color Peripheral Pulses: within normal limits - Abdominal General gastrointestinal: soft, non-tender, non-distended, normal bowel sounds - Integumentary Integumentary: Present: clear, warm, dry - Psychiatric Psychiatric: appropriate mood/affect - Neurologic Neurologic: CNII-XII intact, moves all extremities - Allied Health Allied health notes reviewed: nursing Results - Labs CBC & Chem 7: 09/04/21 06:50 09/04/21 06:50 Labs: Laboratory Last Values WBC 12.8 K/mm3 (4.5-11.0) H 09/04/21 06:50 RBC 2.63 M/mm3 (3.65-5.03) L 09/04/21 06:50 Hgb 7.0 gm/dl (11.8-15.2) L 09/04/21 06:50 Hct 22.4 % (35.5-45.6) L 09/04/21 06:50 MCV 85 fl (84-94) 09/04/21 06:50 MCH 27 pg (28-32) L 09/04/21 06:50 MCHC 31 % (32-34) L 09/04/21 06:50 RDW 14.5 % (13.2-15.2) 09/04/21 06:50 Plt Count 450 K/mm3 (140-440) H 09/04/21 06:50 Lymph % (Auto) 17.1 % (13.4-35.0) 09/04/21 06:50 [place] % (Auto) 11.2 % (0.0-7.3) H 09/04/21 06:50 Eos % (Auto) 2.4 % (0.0-4.3) 09/04/21 06:50 Baso % (Auto) 0.4 % (0.0-1.8) 09/04/21 06:50 Lymph # (Auto) 2.2 K/mm3 (1.2-5.4) 09/04/21 06:50 [place] # (Auto) 1.4 K/mm3 (0.0-0.8) H 09/04/21 06:50 Eos # (Auto) 0.3 K/mm3 (0.0-0.4) 09/04/21 06:50 Baso # (Auto) 0.1 K/mm3 (0.0-0.1) 09/04/21 06:50 Seg Neutrophils % 68.9 % (40.0-70.0) 09/04/21 06:50 Seg Neutrophils # 8.9 K/mm3 (1.8-7.7) H 09/04/21 06:50 Sodium 136 mmol/L (137-145) L 09/04/21 06:50 Potassium 3.8 mmol/L (3.6-5.0) 09/04/21 06:50 Chloride 103.1 mmol/L (98-107) 09/04/21 06:50 Carbon Dioxide 20 mmol/L (22-30) L 09/04/21 06:50 Anion Gap 17 mmol/L 09/04/21 06:50 BUN 52 mg/dL (9-20) H 09/04/21 06:50 Creatinine 1.3 mg/dL (0.8-1.3) 09/04/21 06:50 Estimated GFR > 60 ml/min 09/04/21 06:50 BUN/Creatinine Ratio 40 % 09/04/21 06:50 Glucose 232 mg/dL (75-100) H 09/04/21 06:50 Lactic Acid 0.90 mmol/L (0.7-2.0) 09/03/21 05:24 Calcium 8.0 mg/dL (8.4-10.2) L 09/04/21 06:50 Iron 12 ug/dL (49-181) L 09/03/21 05:24 TIBC 96 mcg/dL (250-450) L 09/03/21 05:24 Total Bilirubin 0.20 mg/dL (0.1-1.2) 09/03/21 05:24 AST 34 units/L (5-40) 09/03/21 05:24 ALT 27 units/L (7-56) 09/03/21 05:24 Alkaline Phosphatase 123 units/L (35-129) 09/03/21 05:24 Total Protein 6.0 g/dL (6.3-8.2) L 09/03/21 05:24 Albumin 2.4 g/dL (3.9-5) L 09/03/21 05:24 Albumin/Globulin Ratio 0.7 % 09/03/21 05:24 Urine Color Meghna (Yellow) 09/03/21 18:00 Urine Turbidity Turbid (Clear) 09/03/21 18:00 Urine pH 9.0 (5.0-7.0) H 09/03/21 18:00 Ur Specific [place] 1.010 (1.003-1.030) 09/03/21 18:00 Urine Protein >500 mg/dL (Negative) 09/03/21 18:00 Urine Glucose (UA) Neg mg/dL (Negative) 09/03/21 18:00 Urine Ketones Neg mg/dL (Negative) 09/03/21 18:00 Urine Blood Sm (Negative) 09/03/21 18:00 Urine Nitrite Pos (Negative) 09/03/21 18:00 Urine Bilirubin Neg (Negative) 09/03/21 18:00 Urine Urobilinogen < 2.0 mg/dL (<2.0) 09/03/21 18:00 Ur Leukocyte Esterase Lg (Negative) 09/03/21 18:00 Urine WBC (Auto) 57.0 /HPF (0.0-6.0) H 09/03/21 18:00 Urine RBC (Auto) 8.0 /HPF (0.0-6.0) 09/03/21 18:00 U Epithel Cells (Auto) 1.0 /HPF (0-13.0) 09/03/21 18:00 Urine Bacteria (Auto) 1+ /HPF (Negative) 09/03/21 18:00 Urine WBC Clumps 2+ /HPF 09/03/21 18:00 Urine Mucus 1+ /HPF 09/03/21 18:00 Urine Yeast (Budding) 2+ /HPF 09/03/21 18:00 Urine Creatinine 51.9 mg/dL (0.1-20.0) H 09/03/21 18:00 Protein/Creatinin Ratio 7.92 09/03/21 18:00 Urine Total Protein 411 mg/dL (5-11.8) H 09/03/21 18:00 Blood Type O POSITIVE 09/03/21 01:38 Antibody Screen Negative 09/03/21 01:38 Kendall/IV: Voiding Method Indwelling Catheter Active Medications - Current Medications Current Medications: Generic Name Dose Route Start Last Admin Trade Name Freq PRN Reason Stop Dose Admin Acetaminophen 650 mg 09/03/21 05:54 Acetaminophen 325 Mg Tab PO Q4H PRN Pain MILD(1-3)/Fever >100.5/DOUGLAS Albuterol 2.5 mg 09/03/21 05:54 Albuterol 2.5 Mg/3 Ml Nebu IH Q3HRT PRN Shortness Of Breath Aspirin 81 mg 09/03/21 10:00 09/03/21 09:14 Aspirin Ec 81 Mg Tab PO 81 mg DAILY [facility] Administration Atorvastatin Calcium 40 mg 09/03/21 22:00 09/03/21 22:03 Atorvastatin 40 Mg Tab PO 40 mg HS [facility] Administration Carvedilol 12.5 mg 09/03/21 10:00 09/03/21 22:03 Carvedilol 12.5 Mg Tab PO 12.5 mg BID [facility] Administration Famotidine 20 mg 09/03/21 10:00 09/03/21 22:03 Famotidine 20 Mg Tab PO 20 mg BID [facility] Administration Ferrous Sulfate 325 mg 09/03/21 10:00 09/03/21 22:03 Ferrous Sulfate 325 Mg Tab PO 325 mg BID [facility] Administration Guaifenesin 10 ml 09/03/21 06:03 09/03/21 09:14 Guaifenesin Dm 200/20 Mg Oral Liqd 10 Ml PO 10 ml Q4H PRN Administration Cough Hydromorphone HCl 0.5 mg 09/03/21 05:54 Hydromorphone 1 Mg/1 Ml Inj IV Q3H PRN Pain , Severe (7-10) Hydroxyzine HCl 25 mg 09/03/21 10:09 09/03/21 15:06 Hydroxyzine Hcl 25 Mg Tab PO 25 mg Q6H PRN Administration Itching Calcium Gluconate 2,000 mg/ 120 mls @ 660 mls/hr 09/04/21 08:37 Sodium Chloride IV 09/04/21 08:47 ONCE ONE Ferric Sodium Gluconate 110 mls @ 100 mls/hr 09/04/21 10:00 Complex 125 mg/ Sodium IV 09/05/21 11:05 Chloride DAILY [facility] Lisinopril 40 mg 09/03/21 10:00 09/03/21 09:14 Lisinopril 40 Mg Tab PO 40 mg QDAY [facility] Administration Morphine Sulfate 2 mg 09/03/21 05:54 Morphine 2 Mg/1 Ml Inj IV Q4H PRN Pain, Moderate (4-6) Ondansetron HCl 4 mg 09/03/21 05:54 Ondansetron 4 Mg/2 Ml Inj IV Q8H PRN Nausea And Vomiting Sodium Chloride 10 ml 09/03/21 10:00 09/03/21 22:04 Sodium Chloride 0.9% 10 Ml Flush Syringe IV 10 ml BID [facility] Administration Sodium Chloride 10 ml 09/03/21 05:54 Sodium Chloride 0.9% 10 Ml Flush Syringe IV PRN PRN LINE FLUSH Thiamine HCl 100 mg 09/03/21 10:00 09/03/21 09:15 Thiamine 100 Mg Tab PO 100 mg QDAY [facility] Administration Trimethoprim/Sulfamethoxazole 1 each 09/04/21 10:00 Sulfamethoxazole/Trimethoprim 800/160mg Ds Tab PO 09/07/21 09:59 Q12HR [facility] Protocol
[2021-09-04 09:18] LABS: ABG Base Excess -3.9 mmol/L (-2.0-3.0); ABG HCO3 19.9 mmol/L (20.0-26.0); ABG Methemoglobin 0.6 % (0.0-1.5); ABG Oxygen Saturation 98.8 % (95.0-99.0); ABG PCO2 30.7 mm Hg; ABG PH 7.43 pH Units (7.350-7.450); ABG PO2 144.4 mm Hg (80.0-90.0)
[2021-09-04] MEDS: FAMOTIDINE 20 MG TAB PO SCH ×2 (10:24→22:46)
[2021-09-04] MEDS: LISINOPRIL 40 MG TAB PO SCH (10:24)
[2021-09-04] MEDS: SULFAMETHOXAZOLE/TRIMETHOPRIM 800/160MG DS TAB PO SCH ×2 (10:24→22:46)
[2021-09-04] MEDS: THIAMINE 100 MG TAB PO SCH (10:24)
[2021-09-04] MEDS: FERROUS SULFATE 325 MG TAB PO SCH ×2 (10:24→22:46)
[2021-09-04] MEDS: carvediloL 12.5 MG TAB PO SCH ×2 (10:24→22:46)
[2021-09-04] MEDS: ASPIRIN EC 81 MG TAB PO SCH (10:24)
[2021-09-04] MEDS: SODIUM FERRIC GLUCON/SUCRO 125 MG in SODIUM CHLORIDE 0.9% 100 ML IV SCH (10:36)
[2021-09-04] MEDS: CALC GLUCONATE 1GM/NS 100 ML 1 GM/100 ML BAG IV SCH ×2 (10:36→14:33)
--- NOTE | 2021-09-04 10:56 | Progress Note ---
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 (2) Anemia (3) Bronchitis (4) Chronic heart failure with preserved ejection fraction (HFpEF) (5) HTN (hypertension) (6) Paranoid personality disorder Has CKD Cr stable UA suggests UTI, follow Urine Cx, start rocephin. Urine PCR high but could be due to UTI as well. Renally dose all meds Avoid Nephrotoxic meds Monitor Acidosis Check Iron panel for anemia Subjective Date of service: 09/04/21 Principal diagnosis: leon, anemia Interval history: Making urine. NAD. Objective - Exam Narrative Exam: General appearance: Present: no acute distress, well-nourished - EENT Eyes: Present: PERRL ENT: hearing intact, clear oral mucosa - Neck Neck: Present: supple, normal ROM - Respiratory Respiratory effort: normal Respiratory: bilateral: diminished - Cardiovascular Heart Sounds: Present: S1 & S2. Absent: rub, click - Extremities Extremities: pulses symmetrical, No edema Peripheral Pulses: within normal limits - Abdominal General gastrointestinal: Present: soft, non-tender, non-distended, normal bowel sounds Male genitourinary: Present: normal - Integumentary Integumentary: Present: clear, warm, dry - Musculoskeletal Musculoskeletal: gait normal, strength equal bilaterally - Psychiatric Psychiatric: appropriate mood/affect, intact judgment & insight - Neurologic Neurologic: CNII-XII intact, moves all extremities - Vital Signs Vital signs: Vital Signs - 12hr 09/04/21 04:06 Temperature 97.5 F L Pulse Rate 78 Respiratory 18 Rate Blood Pressure 142/60 O2 Sat by Pulse 99 Oximetry - Lab 09/04/21 06:50 09/04/21 06:50 Most recent lab results ABG pH 7.430 pH Units (7.350-7.450) 09/04/21 09:10 ABG pCO2 30.7 mm Hg 09/04/21 09:10 ABG pO2 144.4 mm Hg (80.0-90.0) H 09/04/21 09:10 ABG HCO3 19.9 mmol/L (20.0-26.0) L 09/04/21 09:10 ABG O2 Saturation 98.8 % (95.0-99.0) 09/04/21 09:10 Calcium 8.0 mg/dL (8.4-10.2) L 09/04/21 06:50 Urine Creatinine 51.9 mg/dL (0.1-20.0) H 09/03/21 18:00 Urine Total Protein 411 mg/dL (5-11.8) H 09/03/21 18:00 Medications & Allergies - Medications Allergies/Adverse Reactions: Allergies No Known Allergies Allergy (Verified 03/09/21 21:41) Home Medications: Home Medications Medication Instructions Recorded Confirmed Last Taken Type AtorvaSTATin [Lipitor] 40 mg PO HS 03/10/21 09/03/21 Unknown History Thiamine HCl [Vitamin B-1] 100 mg PO DAILY 03/10/21 09/03/21 Unknown History Torsemide [Demadex] 20 mg PO DAILY 03/10/21 09/03/21 Unknown History carvediloL [Coreg] 12.5 mg PO BID 03/10/21 09/03/21 Unknown History lisinopriL [Zestril TAB] 40 mg PO QDAY 03/10/21 09/03/21 Unknown History Aspirin [Adult Aspirin] 81 mg PO DAILY #30 tablet. 03/18/21 09/03/21 Unknown Rx Benzonatate [Tessalon Perles] 100 mg PO Q8HR #14 cap 09/03/21 Unknown Rx Ferrous Sulfate [Ferrous Sulfate 324 mg PO QDAY #14 09/03/21 Unknown Rx 324 MG] Active Medications: Generic Name Dose Route Start Last Admin Trade Name Freq PRN Reason Stop Dose Admin Acetaminophen 650 mg 09/03/21 05:54 Acetaminophen 325 Mg Tab PO Q4H PRN Pain MILD(1-3)/Fever >100.5/DOUGLAS Albuterol 2.5 mg 09/03/21 05:54 Albuterol 2.5 Mg/3 Ml Nebu IH Q3HRT PRN Shortness Of Breath Aspirin 81 mg 09/03/21 10:00 09/04/21 10:24 Aspirin Ec 81 Mg Tab PO 81 mg DAILY [facility] Administration Atorvastatin Calcium 40 mg 09/03/21 22:00 09/03/21 22:03 Atorvastatin 40 Mg Tab PO 40 mg HS [facility] Administration Carvedilol 12.5 mg 09/03/21 10:00 09/04/21 10:24 Carvedilol 12.5 Mg Tab PO 12.5 mg BID [facility] Administration Famotidine 20 mg 09/03/21 10:00 09/04/21 10:24 Famotidine 20 Mg Tab PO 20 mg BID [facility] Administration Ferrous Sulfate 325 mg 09/03/21 10:00 09/04/21 10:24 Ferrous Sulfate 325 Mg Tab PO 325 mg BID [facility] Administration Guaifenesin 10 ml 09/03/21 06:03 09/03/21 09:14 Guaifenesin Dm 200/20 Mg Oral Liqd 10 Ml PO 10 ml Q4H PRN Administration Cough Hydromorphone HCl 0.5 mg 09/03/21 05:54 Hydromorphone 1 Mg/1 Ml Inj IV Q3H PRN Pain , Severe (7-10) Hydroxyzine HCl 25 mg 09/03/21 10:09 09/03/21 15:06 Hydroxyzine Hcl 25 Mg Tab PO 25 mg Q6H PRN Administration Itching Ferric Sodium Gluconate 110 mls @ 100 mls/hr 09/04/21 10:00 09/04/21 10:36 Complex 125 mg/ Sodium IV 09/05/21 11:05 100 mls/hr Chloride DAILY [facility] Administration CALC GLUCONATE 1GM/NS 100 ML 1 gm in 100 mls @ 100 mls/hr 09/04/21 10:00 09/04/21 10:36 Calcium Gluonate/Ns 1,000mg/100ml IV 09/04/21 11:59 100 mls/hr Q1HR [facility] Administration Lisinopril 40 mg 09/03/21 10:00 09/04/21 10:24 Lisinopril 40 Mg Tab PO 40 mg QDAY [facility] Administration Morphine Sulfate 2 mg 09/03/21 05:54 Morphine 2 Mg/1 Ml Inj IV Q4H PRN Pain, Moderate (4-6) Ondansetron HCl 4 mg 09/03/21 05:54 Ondansetron 4 Mg/2 Ml Inj IV Q8H PRN Nausea And Vomiting Sodium Chloride 10 ml 09/03/21 10:00 09/04/21 10:31 Sodium Chloride 0.9% 10 Ml Flush Syringe IV 10 ml BID [facility] Administration Sodium Chloride 10 ml 09/03/21 05:54 Sodium Chloride 0.9% 10 Ml Flush Syringe IV PRN PRN LINE FLUSH Thiamine HCl 100 mg 09/03/21 10:00 09/04/21 10:24 Thiamine 100 Mg Tab PO 100 mg QDAY [facility] Administration Trimethoprim/Sulfamethoxazole 1 each 09/04/21 10:00 09/04/21 10:24 Sulfamethoxazole/Trimethoprim 800/160mg Ds Tab PO 09/06/21 22:01 1 each Q12HR [facility] Administration Protocol
[2021-09-04] MEDS ORDERED: LIDOCAINE-MPF (1%) 10 MG/1 ML VIAL 5 ML INFILTRATI ONE (16:57)
[2021-09-04] MEDS ORDERED: LIDOCAINE (1%) 10 MG/1 ML VIAL 20 ML MDV INFILTRATI ONE (18:00)
[2021-09-04] MEDS ORDERED: cefTRIAXone/NS 1 GM/50 ML 1 GM/50 ML BAG IV SCH (18:00)
[2021-09-05 09:14] LABS: Basophils # (Auto) 0.1 K/mm3 (0.0-0.1); Basophils % (Auto) 0.4 % (0.0-1.8); Eosinophils # (Auto) 0.3 K/mm3 (0.0-0.4); Eosinophils % (Auto) 2.2 % (0.0-4.3); Hematocrit 20.4 % (35.5-45.6); Hemoglobin 6.4 gm/dl (11.8-15.2); Lymphocytes # (Auto) 2.7 K/mm3 (1.2-5.4); Lymphocytes % (Auto) 20.3 % (13.4-35.0); Mean Corpuscular HGB Conc 31 % (32-34); Mean Corpuscular Volume 84 fl (84-94); Monocytes # (Auto) 1.3 K/mm3 (0.0-0.8); Monocytes % (Auto) 9.3 % (0.0-7.3); Platelet Count 428 K/mm3 (140-440); Red Blood Count 2.42 M/mm3 (3.65-5.03); Red Cell Distribution Width 14.7 % (13.2-15.2)
[2021-09-05 09:30] LABS: BUN/Creatinine Ratio 31; Blood Urea Nitrogen 40 mg/dL (9-20); Calcium 7.8 mg/dL (8.4-10.2); Hemolysis Index 0
[2021-09-05] MEDS: FAMOTIDINE 20 MG TAB PO SCH (09:32)
[2021-09-05] MEDS: ASPIRIN EC 81 MG TAB PO SCH (09:32)
[2021-09-05] MEDS: SODIUM FERRIC GLUCON/SUCRO 125 MG in SODIUM CHLORIDE 0.9% 100 ML IV SCH (09:32)
[2021-09-05] MEDS: THIAMINE 100 MG TAB PO SCH (09:32)
[2021-09-05] MEDS: carvediloL 12.5 MG TAB PO SCH ×2 (09:32→09:40)
[2021-09-05] MEDS: LISINOPRIL 40 MG TAB PO SCH ×2 (09:32→09:40)
[2021-09-05] MEDS: SULFAMETHOXAZOLE/TRIMETHOPRIM 800/160MG DS TAB PO SCH (09:32)
[2021-09-05] MEDS: FERROUS SULFATE 325 MG TAB PO SCH (09:34)
--- NOTE | 2021-09-05 11:58 | Progress Note ---
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 (2) Anemia (3) Bronchitis (4) Chronic heart failure with preserved ejection fraction (HFpEF) (5) HTN (hypertension) (6) Paranoid personality disorder HEIDE resolved Renally dose all meds Avoid Nephrotoxic meds Monitor Acidosis will sign off Subjective Date of service: 09/05/21 Principal diagnosis: heide, anemia Interval history: no overnight events Objective - Vital Signs Vital signs: Vital Signs - 12hr 09/05/21 09/05/21 09/05/21 04:52 09:37 09:40 Temperature 98.9 F 98.0 F Pulse Rate 69 71 Respiratory 16 20 Rate Blood Pressure 100/45 97/33 97/33 O2 Sat by Pulse 99 98 Oximetry - General Appearance General appearance: well-developed, well-nourished EENT: ATNC, PERRL Respiratory: Present: Clear to Ascultation. Absent: Rales, Wheezes Cardiology: regular, S1S2 Gastrointestinal: normoactive bowel sounds - Lab 09/05/21 06:31 09/05/21 06:31 Most recent lab results ABG pH 7.430 pH Units (7.350-7.450) 09/04/21 09:10 ABG pCO2 30.7 mm Hg 09/04/21 09:10 ABG pO2 144.4 mm Hg (80.0-90.0) H 09/04/21 09:10 ABG HCO3 19.9 mmol/L (20.0-26.0) L 09/04/21 09:10 ABG O2 Saturation 98.8 % (95.0-99.0) 09/04/21 09:10 Calcium 7.8 mg/dL (8.4-10.2) L 09/05/21 06:31 Urine Creatinine 51.9 mg/dL (0.1-20.0) H 09/03/21 18:00 Urine Total Protein 411 mg/dL (5-11.8) H 09/03/21 18:00 Medications & Allergies - Medications Allergies/Adverse Reactions: Allergies No Known Allergies Allergy (Verified 03/09/21 21:41) Home Medications: Home Medications Medication Instructions Recorded Confirmed Last Taken Type AtorvaSTATin [Lipitor] 40 mg PO HS 03/10/21 09/03/21 Unknown History Thiamine HCl [Vitamin B-1] 100 mg PO DAILY 03/10/21 09/03/21 Unknown History Torsemide [Demadex] 20 mg PO DAILY 03/10/21 09/03/21 Unknown History carvediloL [Coreg] 12.5 mg PO BID 03/10/21 09/03/21 Unknown History lisinopriL [Zestril TAB] 40 mg PO QDAY 03/10/21 09/03/21 Unknown History Aspirin [Adult Aspirin] 81 mg PO DAILY #30 tablet. 03/18/21 09/03/21 Unknown Rx Benzonatate [Tessalon Perles] 100 mg PO Q8HR #14 cap 09/03/21 Unknown Rx Ferrous Sulfate [Ferrous Sulfate 324 mg PO QDAY #14 09/03/21 Unknown Rx 324 MG] Active Medications: Generic Name Dose Route Start Last Admin Trade Name Freq PRN Reason Stop Dose Admin Acetaminophen 650 mg 09/03/21 05:54 Acetaminophen 325 Mg Tab PO Q4H PRN Pain MILD(1-3)/Fever >100.5/DOUGLAS Albuterol 2.5 mg 09/03/21 05:54 Albuterol 2.5 Mg/3 Ml Nebu IH Q3HRT PRN Shortness Of Breath Aspirin 81 mg 09/03/21 10:00 09/05/21 09:32 Aspirin Ec 81 Mg Tab PO 81 mg DAILY ARMANDO Administration Atorvastatin Calcium 40 mg 09/03/21 22:00 09/04/21 22:46 Atorvastatin 40 Mg Tab PO 40 mg HS ARMANDO Administration Carvedilol 12.5 mg 09/03/21 10:00 09/05/21 09:40 Carvedilol 12.5 Mg Tab PO Not Given BID ARMANDO Famotidine 20 mg 09/03/21 10:00 09/05/21 09:32 Famotidine 20 Mg Tab PO 20 mg BID ARMANDO Administration Ferrous Sulfate 325 mg 09/03/21 10:00 09/05/21 09:34 Ferrous Sulfate 325 Mg Tab PO 325 mg BID ARMANDO Administration Guaifenesin 10 ml 09/03/21 06:03 09/03/21 09:14 Guaifenesin Dm 200/20 Mg Oral Liqd 10 Ml PO 10 ml Q4H PRN Administration Cough Hydromorphone HCl 0.5 mg 09/03/21 05:54 Hydromorphone 1 Mg/1 Ml Inj IV Q3H PRN Pain , Severe (7-10) Hydroxyzine HCl 25 mg 09/03/21 10:09 09/03/21 15:06 Hydroxyzine Hcl 25 Mg Tab PO 25 mg Q6H PRN Administration Itching Lisinopril 40 mg 09/03/21 10:00 09/05/21 09:40 Lisinopril 40 Mg Tab PO Not Given QDAY ARMANDO Morphine Sulfate 2 mg 09/03/21 05:54 Morphine 2 Mg/1 Ml Inj IV Q4H PRN Pain, Moderate (4-6) Ondansetron HCl 4 mg 09/03/21 05:54 Ondansetron 4 Mg/2 Ml Inj IV Q8H PRN Nausea And Vomiting Sodium Chloride 10 ml 09/03/21 10:00 09/05/21 09:33 Sodium Chloride 0.9% 10 Ml Flush Syringe IV 10 ml BID ARMANDO Administration Sodium Chloride 10 ml 09/03/21 05:54 Sodium Chloride 0.9% 10 Ml Flush Syringe IV PRN PRN LINE FLUSH Thiamine HCl 100 mg 09/03/21 10:00 09/05/21 09:32 Thiamine 100 Mg Tab PO 100 mg QDAY ARMANDO Administration Trimethoprim/Sulfamethoxazole 1 each 09/04/21 10:00 09/05/21 09:32 Sulfamethoxazole/Trimethoprim 800/160mg Ds Tab PO 09/06/21 22:01 1 each Q12HR ARMANDO Administration Protocol
--- NOTE | 2021-09-05 12:21 | Discharge Summary ---
Providers - Providers Date of Admission: 09/03/21 05:54 Date of discharge: 09/05/21 Attending physician: JAYLEN RODRIGUEZ MD 09/03/21 05:54 Consult to Physician [CONS] Routine Comment: Consulting Provider: TIERNEY HINDS Physician Instructions: Reason For Exam: heide Primary care physician: AVILA FLORES Hospitalization Reason for admission: HEIDE on CKD stage III Condition: Stable Pertinent studies: Reviewed. Procedures: None. Hospital course: Patient is a 56-year-old male past medical history of congestive heart failure, dementia, paranoid schizophrenia, nephrotic syndrome who presented to the emergency room with coughing, weakness, and increased somnolence., The patient was found to have an HEIDE on CKD stage III, nephrology was consulted for further management. In addition the patient was found to have iron deficiency anemia with a hemoglobin of 7.0. The patient was found to have iron deficiency anemia specifically, and he underwent IV iron infusions x2. The patient will need to follow-up with gastroenterology in the outpatient setting for possible colonoscopy. Patient's HEIDE has since resolved. Patient is medically clear for discharge. Disposition: 01 HOME / SELF CARE / HOMELESS Final Discharge Diagnosis (Prints w/discharge instructions): HEIDE on CKD stage III, iron deficiency anemia, bronchitis, chronic diastolic heart failure, hypertension, paranoid personality disorder Time spent for discharge: 45 min Core Measure Documentation - Palliative Care Palliative Care/ Comfort Measures: Not Applicable - Core Measures Any of the following diagnoses?: history only Exam - Constitutional Vitals: Temp Pulse Resp BP Pulse Ox 98.0 F 71 20 97/33 98 09/05/21 09:37 09/05/21 09:37 09/05/21 09:37 09/05/21 09:40 09/05/21 09:37 General appearance: Present: no acute distress, well-nourished - EENT Eyes: Present: PERRL, EOM intact ENT: hearing intact, clear oral mucosa - Neck Neck: Present: supple, normal ROM - Respiratory Respiratory effort: normal Respiratory: bilateral: CTA - Cardiovascular Rhythm: regular Heart Sounds: Present: S1 & S2 - Extremities Extremities: no ischemia, pulses intact, pulses symmetrical, No edema, normal temperature, normal color Peripheral Pulses: within normal limits - Abdominal General gastrointestinal: Present: soft, non-tender, non-distended, normal bowel sounds Male genitourinary: Present: deferred - Rectal Rectal Exam: deferred - Integumentary Integumentary: Present: clear, warm, dry - Musculoskeletal Musculoskeletal: strength equal bilaterally - Psychiatric Psychiatric: appropriate mood/affect, cooperative - Neurologic Neurologic: CNII-XII intact, moves all extremities - Allied Health Allied health notes reviewed: nursing Plan Activity: no restrictions Diet: low salt Additional Instructions: Patient is a 56-year-old male past medical history of congestive heart failure, dementia, paranoid schizophrenia, nephrotic syndrome who presented to the emergency room with coughing, weakness, and increased somnolence., The patient was found to have an HEIDE on CKD stage III, nephrology was consulted for further management. In addition the patient was found to have iron deficiency anemia with a hemoglobin of 7.0. The patient was found to have iron deficiency anemia specifically, and he underwent IV iron infusions x2. The patient will need to follow-up with gastroenterology in the outpatient setting for possible colonoscopy. Patient's HEIDE has since resolved. Patient is medically clear for discharge. Care Plan Goals: Patient is medically clear for discharge. Assessment: Patient is a 56-year-old male past medical history of congestive heart failure, dementia, paranoid schizophrenia, nephrotic syndrome who presented to the emergency room with coughing, weakness, and increased somnolence., The patient was found to have an HEIDE on CKD stage III, nephrology was consulted for further management. In addition the patient was found to have iron deficiency anemia with a hemoglobin of 7.0. The patient was found to have iron deficiency anemia specifically, and he underwent IV iron infusions x2. The patient will need to follow-up with gastroenterology in the outpatient setting for possible colonoscopy. Patient's HEIDE has since resolved. Patient is medically clear for discharge. Follow up with: AVILA FLORES MD [Primary Care Provider] - 3-5 Days Prescriptions: Ferrous Sulfate [Ferrous Sulfate 324 MG] 324 mg PO QDAY #14 Benzonatate [Tessalon Perles] 100 mg PO Q8HR #14 cap
[2021-09-05 14:53] VITALS: BP 145/64
== END 2021-09-05 15:30 | DRG 683 ==
LOC: ED 00:04 → 3A 05:54
PROVIDERS: ADMIT Hospitalist; ATTEND Student in an Organized Health Care Education/Training Program
PROC: 4A033R1 Measurement of Arterial Saturation, Peripheral, Percutaneous Approach (ICD-10-PCS; principal; 2021-09-04)
DX: N17.9 Acute kidney failure, unspecified (principal); I50.32 Chronic diastolic (congestive) heart failure; I13.0 Hypertensive heart and chronic kidney disease with heart failure and stage 1 through stage 4 chronic kidney disease, or unspecified chronic kidney disease; J40 Bronchitis, not specified as acute or chronic; D50.9 Iron deficiency anemia, unspecified; F60.0 Paranoid personality disorder; N18.30 Chronic kidney disease, stage 3 unspecified; Z20.822 Contact with and (suspected) exposure to COVID-19
CPT/HCPCS: 36415; 36600; 71045; 80048; 80053; 81001; 82140; 82570; 82803; 83550; 84156; 85025; 86850; 86900; 86901; 87086; 94640; G0378; Q0162; Q0177; J0610; J0696; J2916; J7030; U0003